=== PATIENT | female | born 1975 | race American Indian/Alaskan Native ===

== ENCOUNTER 2018-04-07 12:47 | Inpatient (IN) | payer MEDICAID, OTHER ==
[2018-04-07] MEDS ORDERED: NACL 0.9% 1000 ML 1,000 ML IV ONE ×2 (13:15→14:12)
[2018-04-07] MEDS ORDERED: ZOFRAN IV ONE ×2 (13:15→18:45)
[2018-04-07] MEDS ORDERED: BENADRYL IV ONE (13:50)
[2018-04-07] MEDS ORDERED: SUBLIMAZE IV ONE (13:50)
[2018-04-07] MEDS ORDERED: REGLAN IV ONE (13:50)
[2018-04-07 13:58] LABS: INR 0.84 (0.87-1.13)
[2018-04-07 13:59] LABS: Hematocrit 39.4 % (30.3-42.9); Hemoglobin 13.4 gm/dl (10.1-14.3); Mean Corpuscular HGB Conc 34 % (30-34); Mean Corpuscular Volume 84 fl (79-97); Platelet Count 315 K/mm3 (140-440); Red Blood Count 4.72 M/mm3 (3.65-5.03); Red Cell Distribution Width 14.2 % (13.2-15.2)
[2018-04-07 14:02] LABS: Alanine Aminotransferase 13 units/L (7-56); Albumin 3.8 g/dL (3.9-5); BUN/Creatinine Ratio 13; Bilirubin,Direct < 0.2 mg/dL (0-0.2); Blood Urea Nitrogen 13 mg/dL (7-17); Calcium 8.7 mg/dL (8.4-10.2); Hemolysis Index 52
--- NOTE | 2018-04-07 14:12 | Emergency Department Report ---
HPI - General Chief Complaint: Abdominal Pain Time Seen by Provider: 04/07/18 13:29 - HPI HPI: Room 25 The patient is a 43-year-old female presenting with chief complaint of abdominal pain nausea and vomiting. The patient states symptoms began 3-4 days ago with left lower quadrant abdominal pain has been constant. The patient states yesterday she developed some nausea and vomiting and then today some diarrhea. Patient has a history of gastroparesis. Patient denies dysuria or hematuria. Patient denies history of fever or vaginal discharge. The patient give her pain a score of 10/10 Location: Abdomen Duration:3-4 days Quality: Pain Severity: 10/10 Modifying factors: [see above] Context: [see above] Mode of transportation: [not driving] ED Past Medical Hx - Past Medical History Hx Diabetes: Yes Hx GERD: Yes (Ulcers) Additional medical history: Gastroparesis - Family History Family history: no significant - Social History Smoking Status: Never Smoker Substance Use Type: None ED Review of Systems ROS: Stated complaint: ABD PAIN Other details as noted in HPI Constitutional: denies: fever Eyes: denies: eye pain ENT: denies: throat pain Respiratory: no symptoms reported Cardiovascular: denies: chest pain Endocrine: no symptoms reported Gastrointestinal: abdominal pain, nausea, vomiting, diarrhea Genitourinary: denies: dysuria Musculoskeletal: denies: back pain Neurological: denies: headache Physical Exam - Physical Exam Vital Signs: Vital Signs 04/07/18 13:12 Temperature 98.1 F Pulse Rate 116 H Respiratory 18 Rate Blood Pressure 196/111 O2 Sat by Pulse 99 Oximetry Physical Exam: GENERAL: The patient is well-developed well-nourished female lying on stretcher. Be in mild discomfort. [] HEENT: Normocephalic. Atraumatic. Extraocular motions are intact. Patient has moist mucous membranes. NECK: Supple. Trachea midline CHEST/LUNGS: Clear to auscultation. There is no respiratory distress noted. HEART/CARDIOVASCULAR: Regular. There is no tachycardia. There is no gallop rub or murmur. ABDOMEN: Abdomen is soft, with diffuse tenderness to palpation. Patient has normal bowel sounds. There is no abdominal distention. SKIN: There is no rash. There is no edema. There is no diaphoresis. NEURO: The patient is awake, alert, and oriented. The patient is cooperative. The patient has normal speech MUSCULOSKELETAL: There is no evidence of acute injury. ED Course Vital Signs 04/07/18 13:12 Temperature 98.1 F Pulse Rate 116 H Respiratory 18 Rate Blood Pressure 196/111 O2 Sat by Pulse 99 Oximetry - Reevaluation(s) Reevaluation #1: 04/07/18 16:01 Patient resting comfortably. Mother updated on labs and CT. Awaiting urine sample Reevaluation #2: 04/07/18 18:50 Patient remains tachycardic and now vomiting despite meds. Will admit to the hospital ED Medical Decision Making - Lab Data Result diagrams: 04/07/18 13:27 04/07/18 13:27 Laboratory Tests 04/07/18 04/07/18 04/07/18 13:27 13:27 13:27 WBC 10.1 RBC 4.72 Hgb 13.4 Hct 39.4 MCV 84 MCH 28 MCHC 34 RDW 14.2 Plt Count 315 Lymph % (Auto) Owner [place] % (Auto) Owner Eos % (Auto) Owner Baso % (Auto) Owner Lymph # Owner [place] # Owner Eos # Owner Baso # Owner Add Manual Diff Complete Total Counted 100 Seg Neutrophils % Owner Seg Neuts % (Manual) 91.0 H Band Neutrophils % 0 Lymphocytes % (Manual) 6.0 L Reactive Lymphs % (Man) 0 Monocytes % (Manual) 3.0 Eosinophils % (Manual) 0 Basophils % (Manual) 0 Metamyelocytes % 0 Myelocytes % 0 Promyelocytes % 0 Blast Cells % 0 Nucleated RBC % Not Reportable Seg Neutrophils # Owner Seg Neutrophils # Man 9.2 H Band Neutrophils # 0.0 Lymphocytes # (Manual) 0.6 L Abs React Lymphs (Man) 0.0 Monocytes # (Manual) 0.3 Eosinophils # (Manual) 0.0 Basophils # (Manual) 0.0 Metamyelocytes # 0.0 Myelocytes # 0.0 Promyelocytes # 0.0 Blast Cells # 0.0 WBC Morphology Not Reportable Hypersegmented Neuts Not Reportable Hyposegmented Neuts Not Reportable Hypogranular Neuts Not Reportable Smudge Cells Not Reportable Toxic Granulation Not Reportable Toxic Vacuolation Not Reportable Dohle Bodies Not Reportable Pelger-Huet Anomaly Not Reportable Abida Rods Not Reportable Platelet Estimate Consistent w auto Clumped Platelets Not Reportable Plt Clumps, EDTA Not Reportable Large Platelets Not Reportable Giant Platelets Not Reportable Platelet Satelliting Not Reportable Plt Morphology Comment Not Reportable RBC Morphology Not Reportable Dimorphic RBCs Not Reportable Polychromasia Not Reportable Hypochromasia Not Reportable Poikilocytosis Not Reportable Anisocytosis 1+ Microcytosis Not Reportable Macrocytosis Not Reportable Spherocytes Not Reportable Pappenheimer Bodies Not Reportable Sickle Cells Not Reportable Target Cells Not Reportable Tear Drop Cells Not Reportable Ovalocytes Not Reportable Helmet Cells Not Reportable Smalls-[place]za Bodies Not Reportable Baker Rings Not Reportable [place] Cells Not Reportable Bite Cells Not Reportable Crenated Cell Not Reportable Elliptocytes Not Reportable Acanthocytes (Spur) Not Reportable Rouleaux Not Reportable Hemoglobin C Crystals Not Reportable Schistocytes Not Reportable Malaria parasites Not Reportable Jay Bodies Not Reportable Hem Pathologist Commnt No PT 11.9 L INR 0.84 L Sodium 135 L Potassium 4.9 Chloride 100.8 Carbon Dioxide 19 L Anion Gap 20 BUN 13 Creatinine 1.0 Estimated GFR > 60 BUN/Creatinine Ratio 13 Glucose 352 H Calcium 8.7 Total Bilirubin 0.40 Direct Bilirubin < 0.2 AST 14 ALT 13 Alkaline Phosphatase 113 Total Protein 7.2 Albumin 3.8 L Albumin/Globulin Ratio 1.1 Amylase 57 Lipase 14 HCG, Qual 04/07/18 13:27 WBC RBC Hgb Hct MCV MCH MCHC RDW Plt Count Lymph % (Auto) [place] % (Auto) Eos % (Auto) Baso % (Auto) Lymph # [place] # Eos # Baso # Add Manual Diff Total Counted Seg Neutrophils % Seg Neuts % (Manual) Band Neutrophils % Lymphocytes % (Manual) Reactive Lymphs % (Man) Monocytes % (Manual) Eosinophils % (Manual) Basophils % (Manual) Metamyelocytes % Myelocytes % Promyelocytes % Blast Cells % Nucleated RBC % Seg Neutrophils # Seg Neutrophils # Man Band Neutrophils # Lymphocytes # (Manual) Abs React Lymphs (Man) Monocytes # (Manual) Eosinophils # (Manual) Basophils # (Manual) Metamyelocytes # Myelocytes # Promyelocytes # Blast Cells # WBC Morphology Hypersegmented Neuts Hyposegmented Neuts Hypogranular Neuts Smudge Cells Toxic Granulation Toxic Vacuolation Dohle Bodies Pelger-Huet Anomaly [place] Rods Platelet Estimate Clumped Platelets Plt Clumps, EDTA Large Platelets Giant Platelets Platelet Satelliting Plt Morphology Comment RBC Morphology Dimorphic RBCs Polychromasia Hypochromasia Poikilocytosis Anisocytosis Microcytosis Macrocytosis Spherocytes Pappenheimer Bodies Sickle Cells Target Cells Tear Drop Cells Ovalocytes Helmet Cells Sm[place]za Bodies Baker Rings [place] Cells Bite Cells Crenated Cell Elliptocytes Acanthocytes (Spur) Rouleaux Hemoglobin C Crystals Schistocytes Malaria parasites Jay Bodies Hem Pathologist Commnt PT INR Sodium Potassium Chloride Carbon Dioxide Anion Gap BUN Creatinine Estimated GFR BUN/Creatinine Ratio Glucose Calcium Total Bilirubin Direct Bilirubin AST ALT Alkaline Phosphatase Total Protein Albumin Albumin/Globulin Ratio Amylase Lipase HCG, Qual Negative Laboratory Tests 04/07/18 04/07/18 04/07/18 13:27 13:27 13:27 WBC 10.1 RBC 4.72 Hgb 13.4 Hct 39.4 MCV 84 MCH 28 MCHC 34 RDW 14.2 Plt Count 315 Lymph % (Auto) Owner [place] % (Auto) Owner Eos % (Auto) Owner Baso % (Auto) Owner Lymph # Owner [place] # Owner Eos # Owner Baso # Owner Add Manual Diff Complete Total Counted 100 Seg Neutrophils % Owner Seg Neuts % (Manual) 91.0 H Band Neutrophils % 0 Lymphocytes % (Manual) 6.0 L Reactive Lymphs % (Man) 0 Monocytes % (Manual) 3.0 Eosinophils % (Manual) 0 Basophils % (Manual) 0 Metamyelocytes % 0 Myelocytes % 0 Promyelocytes % 0 Blast Cells % 0 Nucleated RBC % Not Reportable Seg Neutrophils # Owner Seg Neutrophils # Man 9.2 H Band Neutrophils # 0.0 Lymphocytes # (Manual) 0.6 L Abs React Lymphs (Man) 0.0 Monocytes # (Manual) 0.3 Eosinophils # (Manual) 0.0 Basophils # (Manual) 0.0 Metamyelocytes # 0.0 Myelocytes # 0.0 Promyelocytes # 0.0 Blast Cells # 0.0 WBC Morphology Not Reportable Hypersegmented Neuts Not Reportable Hyposegmented Neuts Not Reportable Hypogranular Neuts Not Reportable Smudge Cells Not Reportable Toxic Granulation Not Reportable Toxic Vacuolation Not Reportable Dohle Bodies Not Reportable Pelger-Huet Anomaly Not Reportable Abida Rods Not Reportable Platelet Estimate Consistent w auto Clumped Platelets Not Reportable Plt Clumps, EDTA Not Reportable Large Platelets Not Reportable Giant Platelets Not Reportable Platelet Satelliting Not Reportable Plt Morphology Comment Not Reportable RBC Morphology Not Reportable Dimorphic RBCs Not Reportable Polychromasia Not Reportable Hypochromasia Not Reportable Poikilocytosis Not Reportable Anisocytosis 1+ Microcytosis Not Reportable Macrocytosis Not Reportable Spherocytes Not Reportable Pappenheimer Bodies Not Reportable Sickle Cells Not Reportable Target Cells Not Reportable Tear Drop Cells Not Reportable Ovalocytes Not Reportable Helmet Cells Not Reportable [place] Bodies Not Reportable Baker Rings Not Reportable [place] Cells Not Reportable Bite Cells Not Reportable Crenated Cell Not Reportable Elliptocytes Not Reportable Acanthocytes (Spur) Not Reportable Rouleaux Not Reportable Hemoglobin C Crystals Not Reportable Schistocytes Not Reportable Malaria parasites Not Reportable Jay Bodies Not Reportable Hem Pathologist Commnt No PT 11.9 L INR 0.84 L Sodium 135 L Potassium 4.9 Chloride 100.8 Carbon Dioxide 19 L Anion Gap 20 BUN 13 Creatinine 1.0 Estimated GFR > 60 BUN/Creatinine Ratio 13 Glucose 352 H Calcium 8.7 Total Bilirubin 0.40 Direct Bilirubin < 0.2 AST 14 ALT 13 Alkaline Phosphatase 113 Total Protein 7.2 Albumin 3.8 L Albumin/Globulin Ratio 1.1 Amylase 57 Lipase 14 HCG, Qual Urine Color Urine Turbidity Urine pH Ur Specific [place] Urine Protein Urine Glucose (UA) Urine Ketones Urine Blood Urine Nitrite Urine Bilirubin Urine Urobilinogen Ur Leukocyte Esterase Urine WBC (Auto) Urine RBC (Auto) 04/07/18 04/07/18 13:27 16:57 WBC RBC Hgb Hct MCV MCH MCHC RDW Plt Count Lymph % (Auto) [place] % (Auto) Eos % (Auto) Baso % (Auto) Lymph # [place] # Eos # Baso # Add Manual Diff Total Counted Seg Neutrophils % Seg Neuts % (Manual) Band Neutrophils % Lymphocytes % (Manual) Reactive Lymphs % (Man) Monocytes % (Manual) Eosinophils % (Manual) Basophils % (Manual) Metamyelocytes % Myelocytes % Promyelocytes % Blast Cells % Nucleated RBC % Seg Neutrophils # Seg Neutrophils # Man Band Neutrophils # Lymphocytes # (Manual) Abs React Lymphs (Man) Monocytes # (Manual) Eosinophils # (Manual) Basophils # (Manual) Metamyelocytes # Myelocytes # Promyelocytes # Blast Cells # WBC Morphology Hypersegmented Neuts Hyposegmented Neuts Hypogranular Neuts Smudge Cells Toxic Granulation Toxic Vacuolation Dohle Bodies Pelger-Huet Anomaly Abida Rods Platelet Estimate Clumped Platelets Plt Clumps, EDTA Large Platelets Giant Platelets Platelet Satelliting Plt Morphology Comment RBC Morphology Dimorphic RBCs Polychromasia Hypochromasia Poikilocytosis Anisocytosis Microcytosis Macrocytosis Spherocytes Pappenheimer Bodies Sickle Cells Target Cells Tear Drop Cells Ovalocytes Helmet Cells Sm[place]za Bodies Baker Rings [place] Cells Bite Cells Crenated Cell Elliptocytes Acanthocytes (Spur) Rouleaux Hemoglobin C Crystals Schistocytes Malaria parasites Jay Bodies Hem Pathologist Commnt PT INR Sodium Potassium Chloride Carbon Dioxide Anion Gap BUN Creatinine Estimated GFR BUN/Creatinine Ratio Glucose Calcium Total Bilirubin Direct Bilirubin AST ALT Alkaline Phosphatase Total Protein Albumin Albumin/Globulin Ratio Amylase Lipase HCG, Qual Negative Urine Color Straw Urine Turbidity Clear Urine pH 5.0 Ur Specific [place] 1.002 L Urine Protein <15 mg/dl Urine Glucose (UA) Neg Urine Ketones Neg Urine Blood Neg Urine Nitrite Neg Urine Bilirubin Neg Urine Urobilinogen < 2.0 Ur Leukocyte Esterase Neg Urine WBC (Auto) < 1.0 Urine RBC (Auto) < 1.0 - Radiology Data Radiology results: report reviewed (CT abdomen and pelvis), image reviewed (CT abdomen and pelvis) [address] [address] Cat Scan Report Signed Patient: BELL LEHMAN MR#: [id number] : 1975 Acct:[id number] Age/Sex: 43 / F ADM Date: 04/07/18 Loc: ED Attending Dr: Ordering Physician: MARIA C BILL MD Date of Service: 04/07/18 Procedure(s): CT abdomen pelvis wo con Accession Number(s): [id number] cc: MARIA C BILL MD CT ABDOMEN PELVIS WITHOUT CONTRAST: HISTORY: Left lower quadrant pain, nausea and vomiting. COMPARISON: none. TECHNIQUE: Helical CT in 1.25mm intervals without IV contrast. Sagittal and coronal reconstructions. FINDINGS: Lung bases: Normal. Liver: Normal. Biliary system: Normal. Pancreas: Normal. Spleen: Normal. Kidneys/ureters/bladder: Normal. Adrenal glands: Normal. Aorta: Normal. Intestines: Normal. Appendix: Normal. Pelvic viscera: Normal. Ascites: None. Adenopathy: None. Musculoskeletal: Intact. Previous internal fixation of the left femoral neck is noted. IMPRESSION: Unremarkable CT scan of the abdomen and pelvis without contrast. Transcribed By: TTR Dictated By: DRISS THAKUR JR, MD Electronically Authenticated By: DRISS THAKUR JR, MD Signed Date/Time: 04/07/18 150 DD/ 1502 TD/TT: 04/07/18 1503 - Differential Diagnosis gastroparesis, diverticulitis, gastroenteritis Critical care attestation.: If time is entered above; I have spent that time in minutes in the direct care of this critically ill patient, excluding procedure time. ED Disposition Clinical Impression: Acute abdominal pain, Gastroparesis, Intractable nausea and vomiting, Tachycardia Disposition: OP ADMIT IP TO THIS HOSP Is pt being admited?: Yes Does the pt Need Aspirin: No Condition: Fair Instructions: Abdominal Pain (ED) Referrals: PRIMARY CARE, [Primary Care Provider] - 3-5 Days Time of Disposition: 18:51 (hospitalist paged (Dr Monroy))
[2018-04-07 14:49] LABS: Anisocytosis 1+; Basophils % (Manual) 0 % (0.0-1.8); Eosinophils % (Manual) 0 % (0.0-4.3); Platelet Estimate Consistent w Auto; Total Cells Counted 100
--- NOTE | 2018-04-07 15:06 | Cat Scan Report ---
CT ABDOMEN PELVIS WITHOUT CONTRAST: HISTORY: Left lower quadrant pain, nausea and vomiting. COMPARISON: none. TECHNIQUE: Helical CT in 1.25mm intervals without IV contrast. Sagittal and coronal reconstructions. FINDINGS: Lung bases: Normal. Liver: Normal. Biliary system: Normal. Pancreas: Normal. Spleen: Normal. Kidneys/ureters/bladder: Normal. Adrenal glands: Normal. Aorta: Normal. Intestines: Normal. Appendix: Normal. Pelvic viscera: Normal. Ascites: None. Adenopathy: None. Musculoskeletal: Intact. Previous internal fixation of the left femoral neck is noted. IMPRESSION: Unremarkable CT scan of the abdomen and pelvis without contrast.
[2018-04-07 17:33] LABS: Bilirubin,Urine NEG (Negative); Blood,Urine NEG (Negative); Color,Urine Straw (Yellow); Protein,Urine <15 mg/dL mg/dL (Negative); Urobilinogen,Urine < 2.0 mg/dL (<2.0); WBC,Urine < 1.0 /HPF (0.0-6.0)
[2018-04-07 17:38] LABS: RBC,Urine < 1.0 /HPF (0.0-6.0)
[2018-04-07] MEDS ORDERED: PHENERGAN PR ONE ×2 (18:46→21:24)
[2018-04-07] MEDS ORDERED: ZOFRAN ONE (18:48)
[2018-04-07] MEDS ORDERED: HumuLIN R IV ONE (18:53)
[2018-04-07] MEDS ORDERED: TYLENOL PO PRN (21:13)
[2018-04-07] MEDS ORDERED: REGLAN IV PRN (21:13)
[2018-04-07] MEDS ORDERED: ZOFRAN IV PRN (21:13)
[2018-04-07] MEDS ORDERED: SODIUM CHLORIDE FLUSH SYRINGE 10 ML IV PRN (21:13)
--- NOTE | 2018-04-07 21:18 | History and Physical Report ---
<MIKAYLA MANUEL - Last Filed: 04/08/18 00:18> History of Present Illness Date of examination: 04/07/18 Date of admission: Pt is a 43 BF with PMHx of HTN, DM type 2, recurrent gastroparesis who presents to the ER with c/o abdominal pain nausea and vomiting for 4 days. Pt was interviewed in room, she was unable to answer question due to medical condition(severe pain and constant vomiting), most of the history was provided by her mother in room. Pt's mother states that she has been having abdominal pain, n/v on and off for at least 1 year, she was diagnosed with gastroparesis, she was admitted in a hospital 2 weeks ago in [place] for similar symptoms, she had an EGD 1 month ago that shows multiple ulcers, she had a f/u appointment in 3 months for a repeat EGD. Pt's mother states that she is visiting in [place], she had been having profuse vomiting for a few days, she brought her to the ER because her vomiting is "dark " (coffee ground). Pt reports diffuse tenderness in the abdomen to light touch (refuse exam due to pain), constant dry hives with scan amount of dark emesis, a CT scan of the abdomen was negative for acute findings, GI is consulted and pt is admitted for acute GIB. Past History Past Medical History: diabetes, hypertension, other (obesity, gastroparesis) Past Surgical History: hysterectomy (partial), Other (left hip sx as a child) Social history: no significant social history, lives with family (mother) Family history: no significant family history Medications and Allergies Allergies Allergy/AdvReac Type Severity Reaction Status Date / Time iodine Allergy Unknown Verified 04/07/18 13:15 Home Medications Medication Instructions Recorded Confirmed Last Taken Type Enalapril Maleate [Vasotec] 10 mg PO BID 04/08/18 04/08/18 Unknown History NovoLIN 70/30 16 units SQ QPM 04/08/18 04/08/18 Unknown History Novolin 70-30 100 Unit/ml Vial 35 units SQ QAM 04/08/18 04/08/18 Unknown History Review of Systems Gastrointestinal: abdominal pain, nausea, vomiting Rectal: pain Musculoskeletal: neck stiffness Integumentary: deferred Psychiatric: other (unable to evaluated) Exam - Constitutional Vitals: Temp Pulse Resp BP Pulse Ox 98.1 F 120 H 22 181/97 99 04/07/18 13:12 04/07/18 18:50 04/07/18 19:00 04/07/18 18:50 04/07/18 18:50 General appearance: Present: severe distress - EENT Eyes: Present: EOM intact ENT: hearing intact - Neck Neck: Present: normal ROM - Respiratory Respiratory effort: normal Respiratory: bilateral: CTA - Cardiovascular Rhythm: regular - Extremities Extremities: no ischemia Peripheral Pulses: within normal limits - Abdominal General gastrointestinal: Present: deferred Localized gastrointestinal: tender: diffuse, guarding: diffuse Female genitourinary: Present: deferred - Rectal Rectal Exam: deferred - Integumentary Integumentary: Present: warm, dry - Musculoskeletal Musculoskeletal: strength equal bilaterally - Psychiatric Psychiatric: appropriate mood/affect - Neurologic Neurologic: moves all extremities Results - Labs CBC & Chem 7: 04/07/18 13:27 04/07/18 13:27 Labs: Laboratory Last Values WBC 10.1 K/mm3 (4.5-11.0) 04/07/18 13:27 RBC 4.72 M/mm3 (3.65-5.03) 04/07/18 13:27 Hgb 13.4 gm/dl (10.1-14.3) 04/07/18 13:27 Hct 39.4 % (30.3-42.9) 04/07/18 13:27 MCV 84 fl (79-97) 04/07/18 13:27 MCH 28 pg (28-32) 04/07/18 13:27 MCHC 34 % (30-34) 04/07/18 13:27 RDW 14.2 % (13.2-15.2) 04/07/18 13:27 Plt Count 315 K/mm3 (140-440) 04/07/18 13:27 Lymph % (Auto) Hebrew Teacher 04/07/18 13:27 Geary % (Auto) Hebrew Teacher 04/07/18 13:27 Eos % (Auto) Hebrew Teacher 04/07/18 13:27 Baso % (Auto) Hebrew Teacher 04/07/18 13:27 Lymph # Hebrew Teacher 04/07/18 13:27 Geary # Hebrew Teacher 04/07/18 13:27 Eos # Hebrew Teacher 04/07/18 13:27 Baso # Hebrew Teacher 04/07/18 13:27 Add Manual Diff Complete 04/07/18 13:27 Total Counted 100 04/07/18 13:27 Seg Neutrophils % Hebrew Teacher 04/07/18 13:27 Seg Neuts % (Manual) 91.0 % (40.0-70.0) H 04/07/18 13:27 Band Neutrophils % 0 % 04/07/18 13:27 Lymphocytes % (Manual) 6.0 % (13.4-35.0) L 04/07/18 13:27 Reactive Lymphs % (Man) 0 % 04/07/18 13:27 Monocytes % (Manual) 3.0 % (0.0-7.3) 04/07/18 13:27 Eosinophils % (Manual) 0 % (0.0-4.3) 04/07/18 13:27 Basophils % (Manual) 0 % (0.0-1.8) 04/07/18 13:27 Metamyelocytes % 0 % 04/07/18 13:27 Myelocytes % 0 % 04/07/18 13:27 Promyelocytes % 0 % 04/07/18 13:27 Blast Cells % 0 % 04/07/18 13:27 Nucleated RBC % Not Reportable 04/07/18 13:27 Seg Neutrophils # Hebrew Teacher 04/07/18 13:27 Seg Neutrophils # Man 9.2 K/mm3 (1.8-7.7) H 04/07/18 13:27 Band Neutrophils # 0.0 K/mm3 04/07/18 13:27 Lymphocytes # (Manual) 0.6 K/mm3 (1.2-5.4) L 04/07/18 13:27 Abs React Lymphs (Man) 0.0 K/mm3 04/07/18 13:27 Monocytes # (Manual) 0.3 K/mm3 (0.0-0.8) 04/07/18 13:27 Eosinophils # (Manual) 0.0 K/mm3 (0.0-0.4) 04/07/18 13:27 Basophils # (Manual) 0.0 K/mm3 (0.0-0.1) 04/07/18 13:27 Metamyelocytes # 0.0 K/mm3 04/07/18 13:27 Myelocytes # 0.0 K/mm3 04/07/18 13:27 Promyelocytes # 0.0 K/mm3 04/07/18 13:27 Blast Cells # 0.0 K/mm3 04/07/18 13:27 WBC Morphology Not Reportable 04/07/18 13:27 Hypersegmented Neuts Not Reportable 04/07/18 13:27 Hyposegmented Neuts Not Reportable 04/07/18 13:27 Hypogranular Neuts Not Reportable 04/07/18 13:27 Smudge Cells Not Reportable 04/07/18 13:27 Toxic Granulation Not Reportable 04/07/18 13:27 Toxic Vacuolation Not Reportable 04/07/18 13:27 Dohle Bodies Not Reportable 04/07/18 13:27 Pelger-Huet Anomaly Not Reportable 04/07/18 13:27 Abida Rods Not Reportable 04/07/18 13:27 Platelet Estimate Consistent w auto 04/07/18 13:27 Clumped Platelets Not Reportable 04/07/18 13:27 Plt Clumps, EDTA Not Reportable 04/07/18 13:27 Large Platelets Not Reportable 04/07/18 13:27 Giant Platelets Not Reportable 04/07/18 13:27 Platelet Satelliting Not Reportable 04/07/18 13:27 Plt Morphology Comment Not Reportable 04/07/18 13:27 RBC Morphology Not Reportable 04/07/18 13:27 Dimorphic RBCs Not Reportable 04/07/18 13:27 Polychromasia Not Reportable 04/07/18 13:27 Hypochromasia Not Reportable 04/07/18 13:27 Poikilocytosis Not Reportable 04/07/18 13:27 Anisocytosis 1+ 04/07/18 13:27 Microcytosis Not Reportable 04/07/18 13:27 Macrocytosis Not Reportable 04/07/18 13:27 Spherocytes Not Reportable 04/07/18 13:27 Pappenheimer Bodies Not Reportable 04/07/18 13:27 Sickle Cells Not Reportable 04/07/18 13:27 Target Cells Not Reportable 04/07/18 13:27 Tear Drop Cells Not Reportable 04/07/18 13:27 Ovalocytes Not Reportable 04/07/18 13:27 Helmet Cells Not Reportable 04/07/18 13:27 Smalls-Mahtomedi Bodies Not Reportable 04/07/18 13:27 [place] Rings Not Reportable 04/07/18 13:27 Felipe Cells Not Reportable 04/07/18 13:27 Bite Cells Not Reportable 04/07/18 13:27 Crenated Cell Not Reportable 04/07/18 13:27 Elliptocytes Not Reportable 04/07/18 13:27 Acanthocytes (Spur) Not Reportable 04/07/18 13:27 Rouleaux Not Reportable 04/07/18 13:27 Hemoglobin C Crystals Not Reportable 04/07/18 13:27 Schistocytes Not Reportable 04/07/18 13:27 Malaria parasites Not Reportable 04/07/18 13:27 Jay Bodies Not Reportable 04/07/18 13:27 Hem Pathologist Commnt No 04/07/18 13:27 PT 11.9 Sec. (12.2-14.9) L 04/07/18 13:27 INR 0.84 (0.87-1.13) L 04/07/18 13:27 Sodium 135 mmol/L (137-145) L 04/07/18 13:27 Potassium 4.9 mmol/L (3.6-5.0) 04/07/18 13:27 Chloride 100.8 mmol/L (98-107) 04/07/18 13:27 Carbon Dioxide 19 mmol/L (22-30) L 04/07/18 13:27 Anion Gap 20 mmol/L 04/07/18 13:27 BUN 13 mg/dL (7-17) 04/07/18 13:27 Creatinine 1.0 mg/dL (0.7-1.2) 04/07/18 13:27 Estimated GFR > 60 ml/min 04/07/18 13:27 BUN/Creatinine Ratio 13 % 04/07/18 13:27 Glucose 352 mg/dL (65-100) H 04/07/18 13:27 POC Glucose 327 (70-105) H 04/07/18 18:54 Calcium 8.7 mg/dL (8.4-10.2) 04/07/18 13:27 Total Bilirubin 0.40 mg/dL (0.1-1.2) 04/07/18 13:27 Direct Bilirubin < 0.2 mg/dL (0-0.2) 04/07/18 13:27 AST 14 units/L (5-40) 04/07/18 13:27 ALT 13 units/L (7-56) 04/07/18 13:27 Alkaline Phosphatase 113 units/L (35-129) 04/07/18 13:27 Total Protein 7.2 g/dL (6.3-8.2) 04/07/18 13:27 Albumin 3.8 g/dL (3.9-5) L 04/07/18 13:27 Albumin/Globulin Ratio 1.1 % 04/07/18 13:27 Amylase 57 units/L (27-131) 04/07/18 13:27 Lipase 14 units/L (13-60) 04/07/18 13:27 HCG, Qual Negative (Negative) 04/07/18 13:27 Urine Color Straw (Yellow) 04/07/18 16:57 Urine Turbidity Clear (Clear) 04/07/18 16:57 Urine pH 5.0 (5.0-7.0) 04/07/18 16:57 Ur Specific [place] 1.002 (1.003-1.030) L 04/07/18 16:57 Urine Protein <15 mg/dl mg/dL (Negative) 04/07/18 16:57 Urine Glucose (UA) Neg mg/dL (Negative) 04/07/18 16:57 Urine Ketones Neg mg/dL (Negative) 04/07/18 16:57 Urine Blood Neg (Negative) 04/07/18 16:57 Urine Nitrite Neg (Negative) 04/07/18 16:57 Urine Bilirubin Neg (Negative) 04/07/18 16:57 Urine Urobilinogen < 2.0 mg/dL (<2.0) 04/07/18 16:57 Ur Leukocyte Esterase Neg (Negative) 04/07/18 16:57 Urine WBC (Auto) < 1.0 /HPF (0.0-6.0) 04/07/18 16:57 Urine RBC (Auto) < 1.0 /HPF (0.0-6.0) 04/07/18 16:57 Assessment and Plan Assessment and plan: 1. Diffuse abdominal pain 2. Intractable N/V 3. Dehydration due to n/v 4. Uncontrol DM type 2 5. Recurrent gastroparesis (likely due to uncontrolled DM 6. HTN 7. Obesity Plan [facility] /n/v Consult GI for upper GIB eval Keep NPO until seen by GI IVF for hydration Morphine PRN for abdominal pain Protonix 40 IV BID Initiate glycemic management with insulin per Sliding scale NS for hydration, renal perfusion Chek Electrolytes K/Mg Futher plan per hospital course Plan of care was d/w pt, voiced understanding Pt's condition and plan of care discussed with Dr Nguyễn Advance Directives: Yes VTE prophylaxis?: Mechanical Plan of care discussed with patient/family: Yes <YE NGUYỄN - Last Filed: 04/08/18 02:52> History of Present Illness Date of admission: 04/07/18 21:13 Medications and Allergies Active Meds: Active Medications Acetaminophen (Tylenol) 650 mg PO Q4H PRN PRN Reason: Pain MILD(1-3)/Fever >100.5/DAVID Dextrose (D50w (25gm) Syringe) 50 ml IV PRN PRN PRN Reason: Hypoglycemia Hydralazine HCl (Apresoline) 5 mg IV Q6HR [facility] Sodium Chloride (Nacl 0.45% 1000 Ml) 1,000 mls @ 75 mls/hr IV DIRECT [facility] Last Admin: 04/07/18 22:23 Dose: 75 mls/hr Documented by: Insulin Human Lispro (Humalog) 0 unit SUB-Q Q6HR [facility]; Protocol Last Admin: 04/08/18 01:08 Dose: 8 unit Documented by: Metoclopramide HCl (Reglan) 10 mg IV Q6H PRN PRN Reason: Nausea And Vomiting Morphine Sulfate (Morphine) 2 mg IV Q4H PRN PRN Reason: Pain, Moderate (4-6) Last Admin: 04/08/18 01:02 Dose: 2 mg Documented by: Ondansetron HCl (Zofran) 4 mg IV Q4H PRN PRN Reason: Nausea And Vomiting Last Admin: 04/08/18 01:02 Dose: 4 mg Documented by: Pantoprazole Sodium (Protonix) 40 mg IV BID [facility] Last Admin: 04/07/18 21:56 Dose: 40 mg Documented by: Sodium Chloride (Sodium Chloride Flush Syringe 10 Ml) 10 ml IV BID [facility] Last Admin: 04/07/18 22:00 Dose: 10 ml Documented by: Sodium Chloride (Sodium Chloride Flush Syringe 10 Ml) 10 ml IV PRN PRN PRN Reason: LINE FLUSH Exam - Constitutional Vitals: Temp Pulse Resp BP Pulse Ox 98.9 F 121 H 18 164/77 0 L 04/08/18 00:55 04/08/18 00:55 04/08/18 01:32 04/08/18 00:55 04/08/18 00:55 Results - Labs CBC & Chem 7: 04/08/18 00:06 04/07/18 13:27 Labs: Laboratory Last Values WBC 10.1 K/mm3 (4.5-11.0) 04/07/18 13:27 RBC 4.72 M/mm3 (3.65-5.03) 04/07/18 13:27 Hgb 12.1 gm/dl (10.1-14.3) 04/08/18 00:06 Hct 34.5 % (30.3-42.9) 04/08/18 00:06 MCV 84 fl (79-97) 04/07/18 13:27 MCH 28 pg (28-32) 04/07/18 13:27 MCHC 34 % (30-34) 04/07/18 13:27 RDW 14.2 % (13.2-15.2) 04/07/18 13:27 Plt Count 315 K/mm3 (140-440) 04/07/18 13:27 Lymph % (Auto) [employer] Teacher 04/07/18 13:27 Geary % (Auto) Hebrew Teacher 04/07/18 13:27 Eos % (Auto) Hebrew Teacher 04/07/18 13:27 Baso % (Auto) Hebrew Teacher 04/07/18 13:27 Lymph # Hebrew Teacher 04/07/18 13:27 Geary # Hebrew Teacher 04/07/18 13:27 Eos # Hebrew Teacher 04/07/18 13:27 Baso # Hebrew Teacher 04/07/18 13:27 Add Manual Diff Complete 04/07/18 13:27 Total Counted 100 04/07/18 13:27 Seg Neutrophils % Hebrew Teacher 04/07/18 13:27 Seg Neuts % (Manual) 91.0 % (40.0-70.0) H 04/07/18 13:27 Band Neutrophils % 0 % 04/07/18 13:27 Lymphocytes % (Manual) 6.0 % (13.4-35.0) L 04/07/18 13:27 Reactive Lymphs % (Man) 0 % 04/07/18 13:27 Monocytes % (Manual) 3.0 % (0.0-7.3) 04/07/18 13:27 Eosinophils % (Manual) 0 % (0.0-4.3) 04/07/18 13:27 Basophils % (Manual) 0 % (0.0-1.8) 04/07/18 13:27 Metamyelocytes % 0 % 04/07/18 13:27 Myelocytes % 0 % 04/07/18 13:27 Promyelocytes % 0 % 04/07/18 13:27 Blast Cells % 0 % 04/07/18 13:27 Nucleated RBC % Not Reportable 04/07/18 13:27 Seg Neutrophils # Hebrew Teacher 04/07/18 13:27 Seg Neutrophils # Man 9.2 K/mm3 (1.8-7.7) H 04/07/18 13:27 Band Neutrophils # 0.0 K/mm3 04/07/18 13:27 Lymphocytes # (Manual) 0.6 K/mm3 (1.2-5.4) L 04/07/18 13:27 Abs React Lymphs (Man) 0.0 K/mm3 04/07/18 13:27 Monocytes # (Manual) 0.3 K/mm3 (0.0-0.8) 04/07/18 13:27 Eosinophils # (Manual) 0.0 K/mm3 (0.0-0.4) 04/07/18 13:27 Basophils # (Manual) 0.0 K/mm3 (0.0-0.1) 04/07/18 13:27 Metamyelocytes # 0.0 K/mm3 04/07/18 13:27 Myelocytes # 0.0 K/mm3 04/07/18 13:27 Promyelocytes # 0.0 K/mm3 04/07/18 13:27 Blast Cells # 0.0 K/mm3 04/07/18 13:27 WBC Morphology Not Reportable 04/07/18 13:27 Hypersegmented Neuts Not Reportable 04/07/18 13:27 Hyposegmented Neuts Not Reportable 04/07/18 13:27 Hypogranular Neuts Not Reportable 04/07/18 13:27 Smudge Cells Not Reportable 04/07/18 13:27 Toxic Granulation Not Reportable 04/07/18 13:27 Toxic Vacuolation Not Reportable 04/07/18 13:27 Dohle Bodies Not Reportable 04/07/18 13:27 Pelger-Huet Anomaly Not Reportable 04/07/18 13:27 Abida Rods Not Reportable 04/07/18 13:27 Platelet Estimate Consistent w auto 04/07/18 13:27 Clumped Platelets Not Reportable 04/07/18 13:27 Plt Clumps, EDTA Not Reportable 04/07/18 13:27 Large Platelets Not Reportable 04/07/18 13:27 Giant Platelets Not Reportable 04/07/18 13:27 Platelet Satelliting Not Reportable 04/07/18 13:27 Plt Morphology Comment Not Reportable 04/07/18 13:27 RBC Morphology Not Reportable 04/07/18 13:27 Dimorphic RBCs Not Reportable 04/07/18 13:27 Polychromasia Not Reportable 04/07/18 13:27 Hypochromasia Not Reportable 04/07/18 13:27 Poikilocytosis Not Reportable 04/07/18 13:27 Anisocytosis 1+ 04/07/18 13:27 Microcytosis Not Reportable 04/07/18 13:27 Macrocytosis Not Reportable 04/07/18 13:27 Spherocytes Not Reportable 04/07/18 13:27 Pappenheimer Bodies Not Reportable 04/07/18 13:27 Sickle Cells Not Reportable 04/07/18 13:27 Target Cells Not Reportable 04/07/18 13:27 Tear Drop Cells Not Reportable 04/07/18 13:27 Ovalocytes Not Reportable 04/07/18 13:27 Helmet Cells Not Reportable 04/07/18 13:27 Smalls-Mahtomedi Bodies Not Reportable 04/07/18 13:27 [place] Rings Not Reportable 04/07/18 13:27 Felipe Cells Not Reportable 04/07/18 13:27 Bite Cells Not Reportable 04/07/18 13:27 Crenated Cell Not Reportable 04/07/18 13:27 Elliptocytes Not Reportable 04/07/18 13:27 Acanthocytes (Spur) Not Reportable 04/07/18 13:27 Rouleaux Not Reportable 04/07/18 13:27 Hemoglobin C Crystals Not Reportable 04/07/18 13:27 Schistocytes Not Reportable 04/07/18 13:27 Malaria parasites Not Reportable 04/07/18 13:27 Jay Bodies Not Reportable 04/07/18 13:27 Hem Pathologist Commnt No 04/07/18 13:27 PT 11.9 Sec. (12.2-14.9) L 04/07/18 13:27 INR 0.84 (0.87-1.13) L 04/07/18 13:27 Sodium 135 mmol/L (137-145) L 04/07/18 13:27 Potassium 4.9 mmol/L (3.6-5.0) 04/07/18 13:27 Chloride 100.8 mmol/L (98-107) 04/07/18 13:27 Carbon Dioxide 19 mmol/L (22-30) L 04/07/18 13:27 Anion Gap 20 mmol/L 04/07/18 13:27 BUN 13 mg/dL (7-17) 04/07/18 13:27 Creatinine 1.0 mg/dL (0.7-1.2) 04/07/18 13:27 Estimated GFR > 60 ml/min 04/07/18 13:27 BUN/Creatinine Ratio 13 % 04/07/18 13:27 Glucose 352 mg/dL (65-100) H 04/07/18 13:27 POC Glucose 345 (70-105) H 04/08/18 01:09 Calcium 8.7 mg/dL (8.4-10.2) 04/07/18 13:27 Total Bilirubin 0.40 mg/dL (0.1-1.2) 04/07/18 13:27 Direct Bilirubin < 0.2 mg/dL (0-0.2) 04/07/18 13:27 AST 14 units/L (5-40) 04/07/18 13:27 ALT 13 units/L (7-56) 04/07/18 13:27 Alkaline Phosphatase 113 units/L (35-129) 04/07/18 13:27 Total Protein 7.2 g/dL (6.3-8.2) 04/07/18 13:27 Albumin 3.8 g/dL (3.9-5) L 04/07/18 13:27 Albumin/Globulin Ratio 1.1 % 04/07/18 13:27 Amylase 57 units/L (27-131) 04/07/18 13:27 Lipase 14 units/L (13-60) 04/07/18 13:27 HCG, Qual Negative (Negative) 04/07/18 13:27 Urine Color Straw (Yellow) 04/07/18 16:57 Urine Turbidity Clear (Clear) 04/07/18 16:57 Urine pH 5.0 (5.0-7.0) 04/07/18 16:57 Ur Specific [place] 1.002 (1.003-1.030) L 04/07/18 16:57 Urine Protein <15 mg/dl mg/dL (Negative) 04/07/18 16:57 Urine Glucose (UA) Neg mg/dL (Negative) 04/07/18 16:57 Urine Ketones Neg mg/dL (Negative) 04/07/18 16:57 Urine Blood Neg (Negative) 04/07/18 16:57 Urine Nitrite Neg (Negative) 04/07/18 16:57 Urine Bilirubin Neg (Negative) 04/07/18 16:57 Urine Urobilinogen < 2.0 mg/dL (<2.0) 04/07/18 16:57 Ur Leukocyte Esterase Neg (Negative) 04/07/18 16:57 Urine WBC (Auto) < 1.0 /HPF (0.0-6.0) 04/07/18 16:57 Urine RBC (Auto) < 1.0 /HPF (0.0-6.0) 04/07/18 16:57 Assessment and Plan Assessment and plan: 43-year-old woman with a history of hypertension, diabetes complicated by gastroparesis [facility] emergency room with complaints of nausea and vomiting 4 days. In the emergency room she had some coffee-ground emesis. Also complaining of abdominal pain, all over. Physical exam significant for abdominal tenderness. Patient with acute on chronic gastroparesis flare, hematemesis secondary tosmall Luz Elena-Cronin tear. Agree with IV fluids, Protonix, IV morphine and GI consult. In condition check serial hemoglobin. Start IV hydralazine for blood pressure control, first dose now
[2018-04-07] MEDS: MORPHINE IV PRN (21:56)
[2018-04-07] MEDS: PROTONIX IV SCH (21:56)
[2018-04-07] MEDS ORDERED: NACL 0.9% 1000 ML 1,000 ML IV SCH (22:00)
[2018-04-07] MEDS: SODIUM CHLORIDE FLUSH SYRINGE 10 ML IV SCH (22:00)
[2018-04-07] MEDS: NACL 0.45% 1000 ML 1,000 ML IV SCH (22:23)
[2018-04-07] MEDS ORDERED: D50W (25GM) Syringe IV PRN ×2 (23:36→23:40)
[2018-04-07] MEDS ORDERED: APRESOLINE IV ONE (23:38)
[2018-04-08 00:26] LABS: Hematocrit 34.5 % (30.3-42.9); Hemoglobin 12.1 gm/dl (10.1-14.3)
[2018-04-08] MEDS: ZOFRAN IV PRN ×4 (01:02→23:53)
[2018-04-08] MEDS: MORPHINE IV PRN ×4 (01:02→21:20)
[2018-04-08] MEDS: HumaLOG SUB-Q SCH ×5 (01:08→23:50)
[2018-04-08] MEDS: APRESOLINE IV SCH ×4 (05:01→23:50)
[2018-04-08 07:46] LABS: Hematocrit 35.3 % (30.3-42.9)
--- NOTE | 2018-04-08 09:30 | Gastroenterology Consultation ---
Addendum entered and electronically signed by ODELL SINHA MD 04/08/18 15:02: I have personally interviewed and examined the patient. I agree with the above A/P. The patient has very poor control of DM (last a1C was 16% in [place]) and explained to her that gastroparesis will be permanent if control not improved. Recommend NPO except ice chips, and advance to liquid diet tomorrow; then as tolerated. Would use Reglan only for severe/intractable cases. Recommend avoid all narcotics. Original Note: History of Present Illness - Reason for Consult Consult date: 04/08/18 GIB Requesting physician: MIKAYLA MANUEL - History of Present Illness Patient is a 43 y/o female with PMH of DM, HTN, obesity, and gastroparesis who presented to ED with c/o abdominal pain, N/V, and "dark" emesis to which GI has been consulted for a possible GIB. Blood glucose > [address] unremarkable. H/H WNL. This morning patient was resting in bed w/o acute distress and mother at bedside but ill appearing. She reports intermittent generalized abdominal cramping with chronic nausea and episodic vomiting for the last 6-7 months requiring multiple hospitalizations with prior workup with an EGD and gastric emptying study while in [place] this past August (08/2017) that revealed a non-bleeding ulcer and gastroparesis per pt report. Symptoms became progressively worse over the past few days with N/V now intractable x 24 hours. Emesis has been "dark brown". No hematemesis, melena, or hematochezia. Admits to continued abd cramping/soreness and new onset of left leg weakness this am. Denies fever, CP, SOB, wt loss, dysphagia, odynophagia, or constipation. Had loose stools yesterday which have now improved. No routine NSAID use but took Ibuprofen recently for abd pain. Upon exam, patient had multiple episodes of dry heaves. Abdomen in soft, non-distended, with generalized TTP/soreness. Past History Past Medical History: diabetes, hypertension, other (obesity, gastroparesis, PUD) Past Surgical History: hysterectomy (partial), Other (left hip sx as a child, EGD and GES 08/2017 in [place]) Social history: no significant social history, lives with family (mother). denies: smoking, alcohol abuse Family history: no significant family history Medications and Allergies Allergies Allergy/AdvReac Type Severity Reaction Status Date / Time iodine Allergy Unknown Verified 04/07/18 13:15 Home Medications Medication Instructions Recorded Confirmed Last Taken Type Enalapril Maleate [Vasotec] 10 mg PO BID 04/08/18 04/08/18 Unknown History NovoLIN 70/30 16 units SQ QPM 04/08/18 04/08/18 Unknown History Novolin 70-30 100 Unit/ml Vial 35 units SQ QAM 04/08/18 04/08/18 Unknown History Active Meds: Active Medications Acetaminophen (Tylenol) 650 mg PO Q4H PRN PRN Reason: Pain MILD(1-3)/Fever >100.5/DAVID Dextrose (D50w (25gm) Syringe) 50 ml IV PRN PRN PRN Reason: Hypoglycemia Hydralazine HCl (Apresoline) 5 mg IV Q6HR [facility] Last Admin: 04/08/18 05:01 Dose: 5 mg Documented by: Sodium Chloride (Nacl 0.45% 1000 Ml) 1,000 mls @ 75 mls/hr IV DIRECT [facility] Last Admin: 04/07/18 22:23 Dose: 75 mls/hr Documented by: Insulin Human Lispro (Humalog) 0 unit SUB-Q Q6HR [facility]; Protocol Last Admin: 04/08/18 05:01 Dose: 4 unit Documented by: Metoclopramide HCl (Reglan) 10 mg IV Q6H PRN PRN Reason: Nausea And Vomiting Last Admin: 04/08/18 04:22 Dose: 10 mg Documented by: Morphine Sulfate (Morphine) 2 mg IV Q4H PRN PRN Reason: Pain, Moderate (4-6) Last Admin: 04/08/18 04:46 Dose: 2 mg Documented by: Ondansetron HCl (Zofran) 4 mg IV Q4H PRN PRN Reason: Nausea And Vomiting Last Admin: 04/08/18 07:57 Dose: 4 mg Documented by: Pantoprazole Sodium (Protonix) 40 mg IV BID [facility] Last Admin: 04/07/18 21:56 Dose: 40 mg Documented by: Sodium Chloride (Sodium Chloride Flush Syringe 10 Ml) 10 ml IV BID [facility] Last Admin: 04/07/18 22:00 Dose: 10 ml Documented by: Sodium Chloride (Sodium Chloride Flush Syringe 10 Ml) 10 ml IV PRN PRN PRN Reason: LINE FLUSH medications reviewed/updated as required Review of Systems - Review of Systems All systems: negative Gastrointestinal: abdominal pain, nausea, vomiting Exam - Constitutional Vital Signs: Temp Pulse Resp BP Pulse Ox 98.0 F 125 H 18 163/97 95 04/08/18 08:48 04/08/18 08:48 04/08/18 08:48 04/08/18 08:48 04/08/18 08:48 General appearance: no acute distress, obese, other (ill appearing) - EENT Eyes: PERRL, EOM intact ENT: hearing intact - Respiratory Respiratory: bilateral: CTA - Cardiovascular Rhythm: other (tachycardia) - Gastrointestinal General gastrointestinal: Present: soft, tender (generalized TTP), non- distended, normal bowel sounds - Musculoskeletal Musculoskeletal: other (left leg weakness) - Neurologic Neurological: alert and oriented x3 - Labs CBC & Chem 7: 04/08/18 07:25 04/07/18 13:27 Lab Results: Laboratory Results - last 24 hr 04/07/18 04/07/18 04/07/18 13:27 13:27 13:27 WBC 10.1 RBC 4.72 Hgb 13.4 Hct 39.4 MCV 84 MCH 28 MCHC 34 RDW 14.2 Plt Count 315 Lymph % (Auto) Film Critic [place] % (Auto) Film Critic Eos % (Auto) Film Critic Baso % (Auto) Film Critic Lymph # Film Critic [place] # Film Critic Eos # Film Critic Baso # Film Critic Add Manual Diff Complete Total Counted 100 Seg Neutrophils % Film Critic Seg Neuts % (Manual) 91.0 H Band Neutrophils % 0 Lymphocytes % (Manual) 6.0 L Reactive Lymphs % (Man) 0 Monocytes % (Manual) 3.0 Eosinophils % (Manual) 0 Basophils % (Manual) 0 Metamyelocytes % 0 Myelocytes % 0 Promyelocytes % 0 Blast Cells % 0 Nucleated RBC % Not Reportable Seg Neutrophils # Film Critic Seg Neutrophils # Man 9.2 H Band Neutrophils # 0.0 Lymphocytes # (Manual) 0.6 L Abs React Lymphs (Man) 0.0 Monocytes # (Manual) 0.3 Eosinophils # (Manual) 0.0 Basophils # (Manual) 0.0 Metamyelocytes # 0.0 Myelocytes # 0.0 Promyelocytes # 0.0 Blast Cells # 0.0 WBC Morphology Not Reportable Hypersegmented Neuts Not Reportable Hyposegmented Neuts Not Reportable Hypogranular Neuts Not Reportable Smudge Cells Not Reportable Toxic Granulation Not Reportable Toxic Vacuolation Not Reportable Dohle Bodies Not Reportable Pelger-Huet Anomaly Not Reportable Abida Rods Not Reportable Platelet Estimate Consistent w auto Clumped Platelets Not Reportable Plt Clumps, EDTA Not Reportable Large Platelets Not Reportable Giant Platelets Not Reportable Platelet Satelliting Not Reportable Plt Morphology Comment Not Reportable RBC Morphology Not Reportable Dimorphic RBCs Not Reportable Polychromasia Not Reportable Hypochromasia Not Reportable Poikilocytosis Not Reportable Anisocytosis 1+ Microcytosis Not Reportable Macrocytosis Not Reportable Spherocytes Not Reportable Pappenheimer Bodies Not Reportable Sickle Cells Not Reportable Target Cells Not Reportable Tear Drop Cells Not Reportable Ovalocytes Not Reportable Helmet Cells Not Reportable Smalls-Claude Bodies Not Reportable [place] Rings Not Reportable [place] Cells Not Reportable Bite Cells Not Reportable Crenated Cell Not Reportable Elliptocytes Not Reportable Acanthocytes (Spur) Not Reportable Rouleaux Not Reportable Hemoglobin C Crystals Not Reportable Schistocytes Not Reportable Malaria parasites Not Reportable Jay Bodies Not Reportable Hem Pathologist Commnt No PT 11.9 L INR 0.84 L Sodium 135 L Potassium 4.9 Chloride 100.8 Carbon Dioxide 19 L Anion Gap 20 BUN 13 Creatinine 1.0 Estimated GFR > 60 BUN/Creatinine Ratio 13 Glucose 352 H POC Glucose Calcium 8.7 Total Bilirubin 0.40 Direct Bilirubin < 0.2 AST 14 ALT 13 Alkaline Phosphatase 113 Total Protein 7.2 Albumin 3.8 L Albumin/Globulin Ratio 1.1 Amylase 57 Lipase 14 HCG, Qual Urine Color Urine Turbidity Urine pH Ur Specific [place] Urine Protein Urine Glucose (UA) Urine Ketones Urine Blood Urine Nitrite Urine Bilirubin Urine Urobilinogen Ur Leukocyte Esterase Urine WBC (Auto) Urine RBC (Auto) 04/07/18 04/07/18 04/07/18 13:27 16:57 18:54 WBC RBC Hgb Hct MCV MCH MCHC RDW Plt Count Lymph % (Auto) [place] % (Auto) Eos % (Auto) Baso % (Auto) Lymph # [place] # Eos # Baso # Add Manual Diff Total Counted Seg Neutrophils % Seg Neuts % (Manual) Band Neutrophils % Lymphocytes % (Manual) Reactive Lymphs % (Man) Monocytes % (Manual) Eosinophils % (Manual) Basophils % (Manual) Metamyelocytes % Myelocytes % Promyelocytes % Blast Cells % Nucleated RBC % Seg Neutrophils # Seg Neutrophils # Man Band Neutrophils # Lymphocytes # (Manual) Abs React Lymphs (Man) Monocytes # (Manual) Eosinophils # (Manual) Basophils # (Manual) Metamyelocytes # Myelocytes # Promyelocytes # Blast Cells # WBC Morphology Hypersegmented Neuts Hyposegmented Neuts Hypogranular Neuts Smudge Cells Toxic Granulation Toxic Vacuolation Dohle Bodies Pelger-Huet Anomaly [place] Rods Platelet Estimate Clumped Platelets Plt Clumps, EDTA Large Platelets Giant Platelets Platelet Satelliting Plt Morphology Comment RBC Morphology Dimorphic RBCs Polychromasia Hypochromasia Poikilocytosis Anisocytosis Microcytosis Macrocytosis Spherocytes Pappenheimer Bodies Sickle Cells Target Cells Tear Drop Cells Ovalocytes Helmet Cells Smalls-Claude Bodies [place] Rings [place] Cells Bite Cells Crenated Cell Elliptocytes Acanthocytes (Spur) Rouleaux Hemoglobin C Crystals Schistocytes Malaria parasites Jay Bodies Hem Pathologist Commnt PT INR Sodium Potassium Chloride Carbon Dioxide Anion Gap BUN Creatinine Estimated GFR BUN/Creatinine Ratio Glucose POC Glucose 327 H Calcium Total Bilirubin Direct Bilirubin AST ALT Alkaline Phosphatase Total Protein Albumin Albumin/Globulin Ratio Amylase Lipase HCG, Qual Negative Urine Color Straw Urine Turbidity Clear Urine pH 5.0 Ur Specific [place] 1.002 L Urine Protein <15 mg/dl Urine Glucose (UA) Neg Urine Ketones Neg Urine Blood Neg Urine Nitrite Neg Urine Bilirubin Neg Urine Urobilinogen < 2.0 Ur Leukocyte Esterase Neg Urine WBC (Auto) < 1.0 Urine RBC (Auto) < 1.0 04/08/18 04/08/18 04/08/18 00:06 01:09 04:57 WBC RBC Hgb 12.1 Hct 34.5 MCV MCH MCHC RDW Plt Count Lymph % (Auto) [place] % (Auto) Eos % (Auto) Baso % (Auto) Lymph # [place] # Eos # Baso # Add Manual Diff Total Counted Seg Neutrophils % Seg Neuts % (Manual) Band Neutrophils % Lymphocytes % (Manual) Reactive Lymphs % (Man) Monocytes % (Manual) Eosinophils % (Manual) Basophils % (Manual) Metamyelocytes % Myelocytes % Promyelocytes % Blast Cells % Nucleated RBC % Seg Neutrophils # Seg Neutrophils # Man Band Neutrophils # Lymphocytes # (Manual) Abs React Lymphs (Man) Monocytes # (Manual) Eosinophils # (Manual) Basophils # (Manual) Metamyelocytes # Myelocytes # Promyelocytes # Blast Cells # WBC Morphology Hypersegmented Neuts Hyposegmented Neuts Hypogranular Neuts Smudge Cells Toxic Granulation Toxic Vacuolation Dohle Bodies Pelger-Huet Anomaly Abida Rods Platelet Estimate Clumped Platelets Plt Clumps, EDTA Large Platelets Giant Platelets Platelet Satelliting Plt Morphology Comment RBC Morphology Dimorphic RBCs Polychromasia Hypochromasia Poikilocytosis Anisocytosis Microcytosis Macrocytosis Spherocytes Pappenheimer Bodies Sickle Cells Target Cells Tear Drop Cells Ovalocytes Helmet Cells Smalls-Claude Bodies [place] Rings [place] Cells Bite Cells Crenated Cell Elliptocytes Acanthocytes (Spur) Rouleaux Hemoglobin C Crystals Schistocytes Malaria parasites Jay Bodies Hem Pathologist Commnt PT INR Sodium Potassium Chloride Carbon Dioxide Anion Gap BUN Creatinine Estimated GFR BUN/Creatinine Ratio Glucose POC Glucose 345 H 290 H Calcium Total Bilirubin Direct Bilirubin AST ALT Alkaline Phosphatase Total Protein Albumin Albumin/Globulin Ratio Amylase Lipase HCG, Qual Urine Color Urine Turbidity Urine pH Ur Specific [place] Urine Protein Urine Glucose (UA) Urine Ketones Urine Blood Urine Nitrite Urine Bilirubin Urine Urobilinogen Ur Leukocyte Esterase Urine WBC (Auto) Urine RBC (Auto) 04/08/18 07:25 WBC RBC Hgb 12.0 Hct 35.3 MCV MCH MCHC RDW Plt Count Lymph % (Auto) [place] % (Auto) Eos % (Auto) Baso % (Auto) Lymph # [place] # Eos # Baso # Add Manual Diff Total Counted Seg Neutrophils % Seg Neuts % (Manual) Band Neutrophils % Lymphocytes % (Manual) Reactive Lymphs % (Man) Monocytes % (Manual) Eosinophils % (Manual) Basophils % (Manual) Metamyelocytes % Myelocytes % Promyelocytes % Blast Cells % Nucleated RBC % Seg Neutrophils # Seg Neutrophils # Man Band Neutrophils # Lymphocytes # (Manual) Abs React Lymphs (Man) Monocytes # (Manual) Eosinophils # (Manual) Basophils # (Manual) Metamyelocytes # Myelocytes # Promyelocytes # Blast Cells # WBC Morphology Hypersegmented Neuts Hyposegmented Neuts Hypogranular Neuts Smudge Cells Toxic Granulation Toxic Vacuolation Dohle Bodies Pelger-Huet Anomaly Abida Rods Platelet Estimate Clumped Platelets Plt Clumps, EDTA Large Platelets Giant Platelets Platelet Satelliting Plt Morphology Comment RBC Morphology Dimorphic RBCs Polychromasia Hypochromasia Poikilocytosis Anisocytosis Microcytosis Macrocytosis Spherocytes Pappenheimer Bodies Sickle Cells Target Cells Tear Drop Cells Ovalocytes Helmet Cells Smalls-Claude Bodies [place] Rings [place] Cells Bite Cells Crenated Cell Elliptocytes Acanthocytes (Spur) Rouleaux Hemoglobin C Crystals Schistocytes Malaria parasites Jay Bodies Hem Pathologist Commnt PT INR Sodium Potassium Chloride Carbon Dioxide Anion Gap BUN Creatinine Estimated GFR BUN/Creatinine Ratio Glucose POC Glucose Calcium Total Bilirubin Direct Bilirubin AST ALT Alkaline Phosphatase Total Protein Albumin Albumin/Globulin Ratio Amylase Lipase HCG, Qual Urine Color Urine Turbidity Urine pH Ur Specific [place] Urine Protein Urine Glucose (UA) Urine Ketones Urine Blood Urine Nitrite Urine Bilirubin Urine Urobilinogen Ur Leukocyte Esterase Urine WBC (Auto) Urine RBC (Auto) Assessment and Plan 1.generalized abdominal pain 2.intractable N/V 3.dark emesis 4.DM uncontrolled 5.H/o gastroparesis 6.obesity -afebrile -WBC-WNL -H/H WNL (12.0/35.3)- continue to monitor H/H and transfuse as needed -LFTs and lipase WNL -abd CT unremarkable -EGD and GES in [place] 08/2017 for similar symptoms revealed a non-bleeding ulcer and gastroparesis per pt report (record unavailable) -patient with worsening of chronic abd pain and N/V over the past few days with dark brown emesis- no hematemesis, melena, or hematochezia -etiology-likely 2/2 gastroparesis flare -keep NPO for now -no plans for EGD at this time given no clinical evidence of significant GI bleeding -left leg weakness this am- d/c reglan- further workup/evaluation per hospitalist -continue PPI, antiemetics, and supportive care -limit narcotics -avoid NSAIDs -optimize glycemic control (Blood glucose > 300 upon admission) -electrolyte management per primary team -will follow
[2018-04-08] MEDS: PROTONIX IV SCH ×2 (10:57→21:15)
[2018-04-08] MEDS: NACL 0.45% 1000 ML 1,000 ML IV SCH ×2 (12:45→23:53)
--- NOTE | 2018-04-08 15:22 | Progress Note ---
Assessment and Plan 1. Diffuse abdominal pain 2. Intractable N/V 3. Dehydration due to n/v 4. Uncontrol DM type 2 5. Recurrent gastroparesis (likely due to uncontrolled DM 6. HTN 7. Obesity Plan Admit to [facility] for abdominal pain /n/v Consult GI for upper GIB eval Keep NPO then start on clear liquid from tomorrow IVF for hydration Morphine PRN for abdominal pain Protonix 40 IV BID Initiate glycemic management with insulin per Sliding scale NS for hydration, renal perfusion Chek Electrolytes K/Mg Subjective Date of service: 04/08/18 Interval history: Patient seen and examined C/O epigastric pain discussed with mother at bedside, had multiple admissions last year for similar reason Objective - Constitutional Vitals: Vital Signs - 12hr 04/08/18 04/08/18 04/08/18 04:41 04:46 05:01 Temperature 98.5 F Pulse Rate 125 H 125 H Respiratory 21 18 Rate Blood Pressure 191/100 191/100 Blood Pressure [Left] O2 Sat by Pulse 99 Oximetry 04/08/18 04/08/18 04/08/18 05:16 06:06 08:48 Temperature 98.0 F Pulse Rate 100 H 125 H Respiratory 18 18 18 Rate Blood Pressure 163/97 Blood Pressure 102/58 [Left] O2 Sat by Pulse 95 Oximetry 04/08/18 12:51 Temperature 98.3 F Pulse Rate 120 H Respiratory 18 Rate Blood Pressure 173/94 Blood Pressure [Left] O2 Sat by Pulse 100 Oximetry General appearance: Present: no acute distress, obese - EENT Eyes: PERRL, EOM intact ENT: hearing intact, clear oral mucosa Ears: bilateral: normal - Neck Neck: supple, normal ROM - Respiratory Respiratory effort: normal Respiratory: bilateral: CTA - Breasts Breasts: normal - Cardiovascular Rhythm: regular Heart Sounds: Present: S1 & S2. Absent: gallop, rub Extremities: pulses intact, No edema, normal color, Full ROM - Gastrointestinal General gastrointestinal: Present: soft, tender (epigastric), non-distended, normal bowel sounds - Integumentary Integumentary: clear, warm, dry - Musculoskeletal Musculoskeletal: 1, strength equal bilaterally - Neurologic Neurologic: moves all extremities - Psychiatric Psychiatric: memory intact, appropriate mood/affect, intact judgment & insight - Labs CBC & Chem 7: 04/08/18 07:25 04/09/18 06:01 Labs: Abnormal lab results 04/07/18 04/07/18 04/08/18 Range/Units 16:57 18:54 01:09 POC Glucose 327 H 345 H (70-105) Ur Specific [place] 1.002 L (1.003-1.030) 04/08/18 04/08/18 Range/Units 04:57 12:54 POC Glucose 290 H 299 H (70-105) Ur Specific [place] (1.003-1.030)
[2018-04-08] MEDS: SODIUM CHLORIDE FLUSH SYRINGE 10 ML IV SCH ×2 (16:04→21:15)
[2018-04-08] MEDS ORDERED: INSULIN REGULAR SQ SCH (18:00)
[2018-04-08] MEDS ORDERED: INSULIN ISOPHANE SQ SCH (18:00)
[2018-04-08] MEDS ORDERED: NON-FORMULARY (Enalapril Maleate [Vasotec] 10 MG) PO SCH (22:00)
[2018-04-08] MEDS: ZESTRIL PO SCH (23:51)
[2018-04-09] MEDS: MORPHINE IV PRN ×3 (04:05→22:44)
[2018-04-09] MEDS: ZOFRAN IV PRN (04:05)
[2018-04-09] MEDS: APRESOLINE IV SCH ×3 (06:09→18:57)
[2018-04-09 06:53] LABS: Calcium 8.6 mg/dL (8.4-10.2)
[2018-04-09] MEDS: HumaLOG SUB-Q SCH ×3 (06:53→18:58)
[2018-04-09] MEDS: PROTONIX IV SCH (08:47)
--- NOTE | 2018-04-09 09:44 | Gastroenterology Progress Note ---
Assessment and Plan - Patient Problems (1) Gastroparesis Current Visit: Yes Status: Acute Plan to address problem: - Poor control of DM chronically (last a1C in [place] was 16% by report). - Improved over the last 24 hours with bowel rest. - Will add librax, and recommend continued wean of morphine (would recommend d/c; now down to 1 Q 8 hours PRN). - Continue protonix daily therapy. - Will advance to full liquid diet; may advance as tolerated after that. - Recommend avoid reglan now, since slowly improving, unless significant regression. - OK to d/c home when taking PO. Will sign off; please call if needed. Subjective Date of service: 04/09/18 Principal diagnosis: Gastroparesis Interval history: The patient is tolerating ice chips and sips of water/clears. She has no blood in her emesis or stools. She has lessened abdominal pain. Objective - Constitutional Vitals: Temp Pulse Resp BP Pulse Ox 97.8 F 104 H 20 165/98 98 04/09/18 08:26 04/09/18 08:41 04/09/18 09:06 04/09/18 08:26 04/09/18 09:06 General appearance: no acute distress - Respiratory Respiratory effort: normal Respiratory: bilateral: CTA - Cardiovascular Rhythm: regular Heart Sounds: Present: S1 & S2 - Gastrointestinal General gastrointestinal: Present: soft, non-tender, non-distended - Labs CBC & Chem 7: 04/08/18 07:25 04/09/18 06:01 Labs: Laboratory Results - last 24 hr 04/08/18 04/08/18 04/08/18 12:54 16:23 21:17 Sodium Potassium Chloride Carbon Dioxide Anion Gap BUN Creatinine Estimated GFR BUN/Creatinine Ratio Glucose POC Glucose 299 H 288 H 277 H Calcium 04/09/18 04/09/18 06:01 06:26 Sodium 138 Potassium 4.0 Chloride 101.7 Carbon Dioxide 22 Anion Gap 18 BUN 19 H Creatinine 1.5 H Estimated GFR 46 BUN/Creatinine Ratio 13 Glucose 360 H POC Glucose 298 H Calcium 8.6
[2018-04-09] MEDS ORDERED: NOVOLIN SQ SCH (10:00)
[2018-04-09] MEDS: ZESTRIL PO SCH ×3 (11:28→22:42)
[2018-04-09] MEDS: LIBRAX 5-2.5 MG PO SCH ×3 (13:16→22:42)
--- NOTE | 2018-04-09 17:20 | Progress Note ---
Assessment and Plan 1. Diffuse abdominal pain, from severe gastroparesis 2. Intractable N/V, 3. Dehydration due to n/v 4. Uncontrol DM type 2 5. Severe gastroparesis (likely due to uncontrolled DM) 6. HTN 7. Obesity Plan monitor medtele for abdominal pain /n/v, IVF for hydration Consulted GI for upper GIB eval- recommended no further workup start on clear liquid from today advance as tolerated, addedd librax Morphine PRN for abdominal pain, wean off slowly Protonix 40 IV BID cont glycemic management with insulin per Sliding scale and long acting follow Electrolytes K/Mg Subjective Date of service: 04/09/18 Principal diagnosis: Gastroparesis Interval history: Patient seen and examined C/O epigastric pain, but improved tolerating clear liquid today Objective - Exam Narrative Exam: General appearance: Present: no acute distress, obese - EENT Eyes: PERRL, EOM intact ENT: hearing intact, clear oral mucosa Ears: bilateral: normal - Neck Neck: supple, normal ROM - Respiratory Respiratory effort: normal Respiratory: bilateral: CTA - Breasts Breasts: normal - Cardiovascular Rhythm: regular Heart Sounds: Present: S1 & S2. Absent: gallop, rub Extremities: pulses intact, No edema, normal color, Full ROM - Gastrointestinal General gastrointestinal: Present: soft, tender (epigastric), non-distended, normal bowel sounds - Integumentary Integumentary: clear, warm, dry - Musculoskeletal Musculoskeletal: 1, strength equal bilaterally - Neurologic Neurologic: moves all extremities - Psychiatric Psychiatric: memory intact, appropriate mood/affect, intact judgment & insight - Constitutional Vitals: Vital Signs - 12hr 04/09/18 04/09/18 04/09/18 06:08 06:09 08:26 Temperature 98.5 F 97.8 F Pulse Rate 115 H 117 H 118 H Respiratory 18 18 Rate Blood Pressure 171/101 171/101 165/98 Blood Pressure [Right] O2 Sat by Pulse 98 97 Oximetry 04/09/18 04/09/18 04/09/18 08:41 08:47 09:06 Temperature Pulse Rate 104 H Respiratory 20 20 Rate Blood Pressure Blood Pressure [Right] O2 Sat by Pulse 98 Oximetry 04/09/18 04/09/18 04/09/18 12:47 12:50 12:51 Temperature 98.2 F Pulse Rate 117 H 114 H Respiratory 20 20 20 Rate Blood Pressure 185/109 175/99 Blood Pressure 175/99 [Right] O2 Sat by Pulse 98 98 Oximetry 04/09/18 13:16 Temperature Pulse Rate Respiratory Rate Blood Pressure 175/99 Blood Pressure [Right] O2 Sat by Pulse Oximetry - Labs CBC & Chem 7: 04/08/18 07:25 04/10/18 10:19 Labs: Abnormal lab results 04/08/18 04/08/18 04/09/18 Range/Units 16:23 21:17 06:01 BUN 19 H (7-17) mg/dL Creatinine 1.5 H (0.7-1.2) mg/dL Glucose 360 H (65-100) mg/dL POC Glucose 288 H 277 H (70-105) 04/09/18 04/09/18 Range/Units 06:26 11:27 BUN (7-17) mg/dL Creatinine (0.7-1.2) mg/dL Glucose (65-100) mg/dL POC Glucose 298 H 277 H (70-105)
[2018-04-09] MEDS: SODIUM CHLORIDE FLUSH SYRINGE 10 ML IV SCH (22:51)
[2018-04-10] MEDS: APRESOLINE IV SCH ×4 (00:30→18:09)
[2018-04-10] MEDS: HumaLOG SUB-Q SCH ×4 (00:31→17:31)
[2018-04-10] MEDS: NACL 0.45% 1000 ML 1,000 ML IV SCH ×2 (06:58→22:21)
[2018-04-10] MEDS: MORPHINE IV PRN (07:17)
[2018-04-10] MEDS: ZOFRAN IV PRN ×2 (07:18→17:42)
[2018-04-10] MEDS: LIBRAX 5-2.5 MG PO SCH ×5 (09:49→22:17)
[2018-04-10] MEDS: SODIUM CHLORIDE FLUSH SYRINGE 10 ML IV SCH ×2 (09:50→22:18)
[2018-04-10] MEDS: PROTONIX IV SCH (09:50)
[2018-04-10] MEDS: ZESTRIL PO SCH ×2 (10:09→22:17)
[2018-04-10 11:08] LABS: Calcium 8.4 mg/dL (8.4-10.2)
[2018-04-10] MEDS ORDERED: MORPHINE IV PRN (12:30)
--- NOTE | 2018-04-10 16:41 | Progress Note ---
Assessment and Plan 1. Diffuse abdominal pain, from severe gastroparesis 2. Intractable N/V, 3. Dehydration due to n/v 4. Uncontrol DM type 2 5. Severe gastroparesis (likely due to uncontrolled DM) 6. HTN 7. Obesity Plan monitor medtele for abdominal pain /n/v, IVF for hydration Consulted GI for upper GIB eval- recommended no further workup diet advanced to full liquid today, added librax Morphine PRN for abdominal pain, wean off slowly Protonix 40 IV BID cont glycemic management with insulin per Sliding scale and long acting follow Electrolytes K/Mg Subjective Date of service: 04/10/18 Principal diagnosis: Gastroparesis Interval history: Patient seen and examined C/O epigastric pain, but improved c/o N/v this am, mother at bedside, updated Objective - Exam Narrative Exam: General appearance: Present: no acute distress, obese - EENT Eyes: PERRL, EOM intact ENT: hearing intact, clear oral mucosa Ears: bilateral: normal - Neck Neck: supple, normal ROM - Respiratory Respiratory effort: normal Respiratory: bilateral: CTA - Breasts Breasts: normal - Cardiovascular Rhythm: regular Heart Sounds: Present: S1 & S2. Absent: gallop, rub Extremities: pulses intact, No edema, normal color, Full ROM - Gastrointestinal General gastrointestinal: Present: soft, tender (epigastric), non-distended, normal bowel sounds - Integumentary Integumentary: clear, warm, dry - Musculoskeletal Musculoskeletal: 1, strength equal bilaterally - Neurologic Neurologic: moves all extremities - Psychiatric Psychiatric: memory intact, appropriate mood/affect, intact judgment & insight - Constitutional Vitals: Vital Signs - 12hr 04/10/18 04/10/18 04/10/18 05:50 07:00 09:23 Temperature 98.9 F 99.1 F Pulse Rate 114 H 114 H 117 H Respiratory 18 18 Rate Blood Pressure 138/85 138/85 149/86 O2 Sat by Pulse 98 100 Oximetry 04/10/18 04/10/18 04/10/18 10:00 10:09 12:48 Temperature 98.5 F Pulse Rate 118 H 117 H 113 H Respiratory 18 Rate Blood Pressure 149/86 132/86 O2 Sat by Pulse 96 100 Oximetry 04/10/18 14:08 Temperature Pulse Rate Respiratory Rate Blood Pressure 132/86 O2 Sat by Pulse Oximetry - Labs CBC & Chem 7: 04/08/18 07:25 01/13/19 10:44 Labs: Abnormal lab results 04/09/18 04/09/18 04/10/18 Range/Units 17:25 21:35 06:53 BUN (7-17) mg/dL Glucose (65-100) mg/dL POC Glucose 231 H 166 H 197 H (70-105) 04/10/18 04/10/18 Range/Units 10:19 12:49 BUN 19 H (7-17) mg/dL Glucose 228 H (65-100) mg/dL POC Glucose 170 H (70-105)
[2018-04-11] MEDS: APRESOLINE IV SCH ×5 (00:19→23:40)
[2018-04-11] MEDS: HumaLOG SUB-Q SCH ×5 (00:20→23:46)
[2018-04-11] MEDS ORDERED: MORPHINE IV PRN (03:00)
[2018-04-11] MEDS: LIBRAX 5-2.5 MG PO SCH ×4 (08:30→21:39)
[2018-04-11] MEDS: PROTONIX IV SCH ×2 (09:31→20:10)
[2018-04-11] MEDS: SODIUM CHLORIDE FLUSH SYRINGE 10 ML IV SCH ×3 (09:31→22:43)
[2018-04-11] MEDS: ZESTRIL PO SCH ×2 (09:31→21:38)
[2018-04-11] MEDS: NACL 0.45% 1000 ML 1,000 ML IV SCH (10:42)
--- NOTE | 2018-04-11 15:22 | Progress Note ---
Assessment and Plan 1. Diffuse abdominal pain, from severe gastroparesis 2. Intractable N/V, 3. Dehydration due to n/v 4. Uncontrol DM type 2 5. Severe gastroparesis (likely due to uncontrolled DM) 6. HTN 7. Obesity 8. ARIEL, due to vasomotor nephropathy - cannot r/o underlying CKD Plan monitor medtele for abdominal pain /n/v, IVF for hydration Consulted GI for upper GIB eval- recommended no further workup cont full liquid diet, librax Morphine PRN for abdominal pain, wean off slowly Protonix 40 IV BID cont glycemic management with insulin per Sliding scale and long acting follow Electrolytes K/Mg Subjective Date of service: 04/11/18 Principal diagnosis: Gastroparesis Interval history: Patient seen and examined C/O epigastric pain, but improved no N/v today, mother at bedside, updated States feels better and states able to keep food down at a small amount Objective - Exam Narrative Exam: General appearance: Present: no acute distress, obese - EENT Eyes: PERRL, EOM intact ENT: hearing intact, clear oral mucosa Ears: bilateral: normal - Neck Neck: supple, normal ROM - Respiratory Respiratory effort: normal Respiratory: bilateral: CTA - Breasts Breasts: normal - Cardiovascular Rhythm: regular Heart Sounds: Present: S1 & S2. Absent: gallop, rub Extremities: pulses intact, No edema, normal color, Full ROM - Gastrointestinal General gastrointestinal: Present: soft, tender (epigastric), non-distended, normal bowel sounds - Integumentary Integumentary: clear, warm, dry - Musculoskeletal Musculoskeletal: 1, strength equal bilaterally - Neurologic Neurologic: moves all extremities - Psychiatric Psychiatric: memory intact, appropriate mood/affect, intact judgment & insight - Constitutional Vitals: Vital Signs - 12hr 04/11/18 04/11/18 04/11/18 04:23 06:57 09:31 Temperature 98.1 F Pulse Rate 106 H 106 H 106 H Respiratory 17 Rate Blood Pressure 149/87 149/87 149/87 O2 Sat by Pulse 99 Oximetry 04/11/18 04/11/18 04/11/18 10:00 10:02 11:32 Temperature 98.9 F 98.9 F Pulse Rate 114 H 105 H Respiratory 18 18 Rate Blood Pressure 166/96 134/85 O2 Sat by Pulse 96 99 Oximetry 04/11/18 11:33 Temperature Pulse Rate 105 H Respiratory Rate Blood Pressure 134/85 O2 Sat by Pulse Oximetry - Labs CBC & Chem 7: 04/08/18 07:25 04/12/18 10:52 Labs: Abnormal lab results 04/11/18 04/11/18 Range/Units 10:44 11:33 Sodium 133 L (137-145) mmol/L Potassium 3.5 L (3.6-5.0) mmol/L BUN 18 H (7-17) mg/dL Creatinine 1.3 H (0.7-1.2) mg/dL Glucose 140 H (65-100) mg/dL POC Glucose 130 H (70-105) Calcium 8.0 L (8.4-10.2) mg/dL
[2018-04-11] MEDS: KCL 10MEQ/100ML 10 MEQ/100 ML BAG IV SCH ×3 (17:22→21:30)
[2018-04-12] MEDS: APRESOLINE IV SCH ×3 (05:12→18:03)
[2018-04-12] MEDS: NACL 0.45% 1000 ML 1,000 ML IV SCH (05:17)
[2018-04-12] MEDS: HumaLOG SUB-Q SCH ×3 (07:23→18:01)
[2018-04-12 08:55] VITALS: BP 127/78
[2018-04-12] MEDS: PROTONIX IV SCH (09:12)
[2018-04-12] MEDS: ZESTRIL PO SCH (09:12)
[2018-04-12] MEDS: SODIUM CHLORIDE FLUSH SYRINGE 10 ML IV SCH (09:12)
[2018-04-12] MEDS: LIBRAX 5-2.5 MG PO SCH ×3 (09:51→17:51)
[2018-04-12 11:27] LABS: Calcium 7.9 mg/dL (8.4-10.2)
--- NOTE | 2018-04-12 13:39 | Discharge Summary ---
Providers - Providers Date of Admission: 04/07/18 21:13 Date of discharge: 04/12/18 Attending physician: KYLE GALVEZ 04/07/18 21:35 Consult to Physician [CONS] Routine Comment: Consulting Provider: JOSE DELUCA Physician Instructions: Reason For Exam: GIB Primary care physician: [employer] Hospitalization Condition: Fair Pertinent studies: Ct abdomen/pelvis Renal US Hospital course: Patient is a 43 y/o female with PMH of DM, HTN, obesity, and gastroparesis who presented to ED with c/o abdominal pain, N/V with "dark" emesis. Blood glucose was > [address] was unremarkable. H/H was WNL. For last 6-7 months she has been requiring multiple hospitalizations with prior workup with an EGD and gastric emptying study while in [place] this past August (08/2017) that revealed a non-bleeding ulcer and gastroparesis per pt report. Patient was monitored medtele for abdominal pain /n/v, given IVF for hydration, Consulted GI for upper GIB eval- recommended no further workup. Patient was placed on full liquid diet, given librax, Protonix 40 IV BID, glycemic control managed with insulin per Sliding scale and also with long acting, followed Electrolytes K/Mg. She was slowly improved, then discharged home in stable condition. Discharge diagnosis: 1. Diffuse abdominal pain, from severe gastroparesis, resolved 2. Intractable N/V, 3. Dehydration due to n/v 4. Uncontrol DM type 2 5. Severe gastroparesis (likely due to uncontrolled DM) 6. HTN 7. Obesity 8. ARIEL, due to vasomotor nephropathy - cannot r/o underlying CKD Disposition: TO HOME OR SELFCARE Time spent for discharge: 34 minutes Core Measure Documentation - Palliative Care Palliative Care/ Comfort Measures: Not Applicable - Core Measures Any of the following diagnoses?: none Exam - Physical Exam Narrative exam: General appearance: Present: no acute distress, obese - EENT Eyes: PERRL, EOM intact ENT: hearing intact, clear oral mucosa Ears: bilateral: normal - Neck Neck: supple, normal ROM - Respiratory Respiratory effort: normal Respiratory: bilateral: CTA - Breasts Breasts: normal - Cardiovascular Rhythm: regular Heart Sounds: Present: S1 & S2. Absent: gallop, rub Extremities: pulses intact, No edema, normal color, Full ROM - Gastrointestinal General gastrointestinal: Present: soft, tender (epigastric), non-distended, normal bowel sounds - Integumentary Integumentary: clear, warm, dry - Musculoskeletal Musculoskeletal: 1, strength equal bilaterally - Neurologic Neurologic: moves all extremities - Psychiatric Psychiatric: memory intact, appropriate mood/affect, intact judgment & insight - Constitutional Vitals: Temp Pulse Resp BP Pulse Ox 97.8 F 98 H 16 127/78 99 04/12/18 08:53 04/12/18 08:53 04/12/18 08:53 04/12/18 08:53 04/12/18 08:53 Plan Activity: advance as tolerated Weight Bearing Status: Weight Bear as Tolerated Diet: advance as tolerated Special Instructions: record blood sugar diary Follow up with: PRIMARY CARE, [Primary Care Provider] - 3-5 Days Prescriptions: chlordiazePOXIDE/CLIDINIUM [Librax 5-2.5 mg] 1 cap PO ACHS #90 capsule Pantoprazole [Protonix TAB] 40 mg PO QDAY #30 tablet
--- NOTE | 2018-04-12 13:49 | Ultrasound Report ---
ULTRASOUND RENAL BILATERAL HISTORY: Chronic kidney disease. TECHNIQUE: transabdominal ultrasound with color Doppler interrogation. FINDINGS: Scans of the kidneys show normal renal contours. There is normal central calyceal clustering and good preservation of the cortical thickness. There is no evidence of mass or hydronephrosis. The views of the bladder and the region of the ureters appear normal. IMPRESSION: Unremarkable renal ultrasound.
== END 2018-04-12 20:02 | disposition home or self-care (01) | DRG 73 ==
LOC: ED 12:47 → 4A 21:13
PROVIDERS: ADMIT Internal Medicine; ATTEND Internal Medicine
DX: E11.43 Type 2 diabetes mellitus with diabetic autonomic (poly)neuropathy (principal); N17.0 Acute kidney failure with tubular necrosis; K31.84 Gastroparesis; E11.65 Type 2 diabetes mellitus with hyperglycemia; E86.0 Dehydration; E66.9 Obesity, unspecified; E11.22 Type 2 diabetes mellitus with diabetic chronic kidney disease; I12.9 Hypertensive chronic kidney disease with stage 1 through stage 4 chronic kidney disease, or unspecified chronic kidney disease; N18.9 Chronic kidney disease, unspecified; Z90.711 Acquired absence of uterus with remaining cervical stump; Z91.041 Radiographic dye allergy status; Z68.34 Body mass index [BMI] 34.0-34.9, adult
CPT/HCPCS: 36415; 74176; 76770; 80048; 80076; 81001; 82150; 82962; 83690; 84703; 85007; 85014; 85018; 85025; 85610; 87116; 96361; 96374; 96375; G0378; C9113; J0360; J1200; J1815; J2270; J2405; J2765; J3010; J3480; J7030

== ENCOUNTER 2018-04-29 22:31 | Emergency (ER) | payer MEDICAID, OTHER ==
[2018-04-29] MEDS ORDERED: NACL 0.9% 1000 ML 1,000 ML ONE (23:07)
[2018-04-29] MEDS ORDERED: ZOFRAN ONE (23:07)
[2018-04-29 23:32] LABS: Basophils % (Auto) 0.3 % (0.0-1.8); Eosinophils % (Auto) 0.3 % (0.0-4.3); Hematocrit 36.3 % (30.3-42.9); Hemoglobin 12.1 gm/dl (10.1-14.3); Lymphocytes # (Auto) 1.9 K/mm3 (1.2-5.4); Lymphocytes % (Auto) 17.6 % (13.4-35.0); Mean Corpuscular HGB Conc 33 % (30-34); Mean Corpuscular Volume 83 fl (79-97); Monocytes # (Auto) 0.6 K/mm3 (0.0-0.8); Monocytes % (Auto) 5.7 % (0.0-7.3); Platelet Count 393 K/mm3 (140-440); Red Cell Distribution Width 14.2 % (13.2-15.2)
[2018-04-29] MEDS ORDERED: ZOFRAN IM ONE (23:36)
[2018-04-29] MEDS ORDERED: NACL 0.9% 1000 ML 1,000 ML IV ONE (23:37)
[2018-04-29 23:45] LABS: Albumin 3.6 g/dL (3.9-5); BUN/Creatinine Ratio 11; Blood Urea Nitrogen 13 mg/dL (7-17); Calcium 8.7 mg/dL (8.4-10.2); Hemolysis Index 2
[2018-04-29 23:54] LABS: Alanine Aminotransferase < 5 units/L (7-56)
[2018-04-30] MEDS ORDERED: HALDOL IM ONE (00:36)
[2018-04-30 00:39] VITALS: BP 139/82
--- NOTE | 2018-04-30 00:44 | Emergency Department Report ---
ED General Adult HPI - General Chief complaint: Nausea/Vomiting/Diarrhea Stated complaint: ABDOMINAL PAIN Time Seen by Provider: 04/29/18 22:42 Source: patient Mode of arrival: Stretcher Limitations: No Limitations - History of Present Illness Initial comments: Patient presents to emergency department today complaining of nausea vomiting. Patient history of gastroparesis and was just recently discharged from [facility] on this past Thursday. Patient denies any chest pain, shortness breath, or headache. -: Gradual Radiation: non-radiation Severity scale (0 -10): 2 Quality: burning, dull Consistency: constant Improves with: none Worsens with: none Associated Symptoms: denies other symptoms Treatments Prior to Arrival: none - Related Data Previous Rx's Medication Instructions Recorded Last Taken Type Enalapril Maleate [Vasotec] 10 mg PO BID #60 tablet 04/12/18 Unknown Rx NovoLIN 70/30 16 units SQ QPM 30 Days #2 04/12/18 Unknown Rx Novolin 70-30 100 Unit/ml Vial 35 units SQ QAM 30 Days #2 04/12/18 Unknown Rx Pantoprazole [Protonix] 40 mg PO QDAY #30 tablet 04/12/18 Unknown Rx chlordiazePOXIDE/CLIDINIUM [Librax 1 cap PO ACHS #90 capsule 04/12/18 Unknown Rx 5-2.5 mg] Metoclopramide [Reglan] 10 mg PO TID PRN #21 tab 04/30/18 Unknown Rx Scopolamine [Transderm-Scop] 1 each TD Q3D #4 patch 04/30/18 Unknown Rx Allergies Allergy/AdvReac Type Severity Reaction Status Date / Time iodine Allergy Unknown Verified 04/07/18 13:15 ED Review of Systems ROS: Stated complaint: ABDOMINAL PAIN Other details as noted in HPI Comment: All other systems reviewed and negative Constitutional: denies: chills, fever Eyes: denies: eye pain, eye discharge, vision change ENT: denies: ear pain, throat pain Respiratory: denies: cough, shortness of breath, wheezing Cardiovascular: denies: chest pain, palpitations Endocrine: no symptoms reported Gastrointestinal: nausea, vomiting. denies: abdominal pain, diarrhea Genitourinary: denies: urgency, dysuria, discharge Musculoskeletal: denies: back pain, joint swelling, arthralgia Skin: denies: rash, lesions Neurological: denies: headache, weakness, paresthesias Psychiatric: denies: anxiety, depression Hematological/Lymphatic: denies: easy bleeding, easy bruising ED Past Medical Hx - Past Medical History Previous Medical History?: Yes Hx Hypertension: Yes Hx Congestive Heart Failure: No Hx Diabetes: Yes Hx GERD: Yes (Ulcers) Hx Asthma: No Hx COPD: No Hx HIV: No Additional medical history: Gastroparesis - Surgical History Past Surgical History?: No - Social History Smoking Status: Never Smoker Substance Use Type: Prescribed - Medications Home Medications: Home Medications Medication Instructions Recorded Confirmed Last Taken Type Enalapril Maleate [Vasotec] 10 mg PO BID #60 tablet 04/12/18 Unknown Rx NovoLIN 70/30 16 units SQ QPM 30 Days #2 04/12/18 Unknown Rx Novolin 70-30 100 Unit/ml Vial 35 units SQ QAM 30 Days #2 04/12/18 Unknown Rx Pantoprazole [Protonix] 40 mg PO QDAY #30 tablet 04/12/18 Unknown Rx chlordiazePOXIDE/CLIDINIUM [Librax 1 cap PO ACHS #90 capsule 04/12/18 Unknown Rx 5-2.5 mg] Metoclopramide [Reglan] 10 mg PO TID PRN #21 tab 04/30/18 Unknown Rx Scopolamine [Transderm-Scop] 1 each TD Q3D #4 patch 04/30/18 Unknown Rx ED Physical Exam - General Limitations: No Limitations General appearance: alert, in no apparent distress - Head Head exam: Present: atraumatic, normocephalic - Eye Eye exam: Present: normal appearance, PERRL, EOMI - ENT ENT exam: Present: mucous membranes dry - Neck Neck exam: Present: normal inspection - Respiratory Respiratory exam: Present: normal lung sounds bilaterally. Absent: respiratory distress, wheezes, rales - Cardiovascular Cardiovascular Exam: Present: normal rhythm, tachycardia. Absent: systolic murmur, diastolic murmur, rubs, gallop - GI/Abdominal GI/Abdominal exam: Present: soft, normal bowel sounds. Absent: distended, tenderness - Extremities Exam Extremities exam: Present: normal inspection - Back Exam Back exam: Present: normal inspection - Neurological Exam Neurological exam: Present: alert, oriented X3, CN II-XII intact. Absent: motor sensory deficit - Psychiatric Psychiatric exam: Present: normal affect, normal mood - Skin Skin exam: Present: warm, dry, intact, normal color. Absent: rash ED Course Vital Signs 04/29/18 04/29/18 04/29/18 22:37 22:38 22:45 Temperature 98.9 F Pulse Rate 115 H Respiratory 20 Rate Blood Pressure 194/101 174/96 169/102 O2 Sat by Pulse 99 97 100 Oximetry 04/29/18 04/29/18 04/29/18 23:00 23:15 23:30 Temperature Pulse Rate Respiratory Rate Blood Pressure 166/102 145/95 157/98 O2 Sat by Pulse Oximetry 04/29/18 04/30/18 04/30/18 23:45 00:00 00:15 Temperature Pulse Rate Respiratory Rate Blood Pressure 162/86 166/84 152/83 O2 Sat by Pulse 98 96 99 Oximetry 04/30/18 00:30 Temperature Pulse Rate Respiratory Rate Blood Pressure 139/82 O2 Sat by Pulse Oximetry ED Medical Decision Making - Lab Data Result diagrams: 04/29/18 23:09 04/29/18 23:09 Lab Results 04/29/18 04/29/18 Range/Units 23:09 23:09 WBC 10.8 (4.5-11.0) K/mm3 RBC 4.40 (3.65-5.03) M/mm3 Hgb 12.1 (10.1-14.3) gm/dl Hct 36.3 (30.3-42.9) % MCV 83 (79-97) fl MCH 28 (28-32) pg MCHC 33 (30-34) % RDW 14.2 (13.2-15.2) % Plt Count 393 (140-440) K/mm3 Lymph % (Auto) 17.6 (13.4-35.0) % [place] % (Auto) 5.7 (0.0-7.3) % Eos % (Auto) 0.3 (0.0-4.3) % Baso % (Auto) 0.3 (0.0-1.8) % Lymph # 1.9 (1.2-5.4) K/mm3 [place] # 0.6 (0.0-0.8) K/mm3 Eos # 0.0 (0.0-0.4) K/mm3 Baso # 0.0 (0.0-0.1) K/mm3 Seg Neutrophils % 76.1 H (40.0-70.0) % Seg Neutrophils # 8.3 H (1.8-7.7) K/mm3 Sodium 137 (137-145) mmol/L Potassium 3.1 L (3.6-5.0) mmol/L Chloride 98.7 (98-107) mmol/L Carbon Dioxide 22 (22-30) mmol/L Anion Gap 19 mmol/L BUN 13 (7-17) mg/dL Creatinine 1.2 (0.7-1.2) mg/dL Estimated GFR 60 ml/min BUN/Creatinine Ratio 11 % Glucose 176 H (65-100) mg/dL Calcium 8.7 (8.4-10.2) mg/dL Total Bilirubin 0.40 (0.1-1.2) mg/dL AST < 5 L (5-40) units/L ALT < 5 L (7-56) units/L Alkaline Phosphatase 89 (35-129) units/L Total Protein 7.2 (6.3-8.2) g/dL Albumin 3.6 L (3.9-5) g/dL Albumin/Globulin Ratio 1.0 % Lipase 24 (13-60) units/L - Medical Decision Making Patient improved after Hipolito and Genaro Critical care attestation.: If time is entered above; I have spent that time in minutes in the direct care of this critically ill patient, excluding procedure time. ED Disposition Clinical Impression: Gastroparesis Disposition: DC- TO HOME OR SELFCARE Is pt being admited?: No Does the pt Need Aspirin: No Condition: Stable Instructions: Acute Nausea and Vomiting (ED) Additional Instructions: return if worse Prescriptions: Metoclopramide [Reglan] 10 mg PO TID PRN #21 tab PRN Reason: Nausea Scopolamine [Transderm-Scop] 1 each TD Q3D #4 patch Referrals: [facility] [Provider Group] - 3-5 Days [facility] [Provider Group] - 3-5 Days Time of Disposition: 01:06
== END 2018-04-30 01:40 | disposition home or self-care (01) ==
LOC: ED 22:31
DX: K31.84 Gastroparesis (principal); I10 Essential (primary) hypertension; K21.9 Gastro-esophageal reflux disease without esophagitis; E11.9 Type 2 diabetes mellitus without complications; Z91.041 Radiographic dye allergy status; Z79.4 Long term (current) use of insulin
CPT/HCPCS: 36415; 80053; 83690; 85025; 96360; 96361; 96372; 99283; J1630; J2405; J7030

== ENCOUNTER 2018-05-03 15:00 | Inpatient (IN) | payer MEDICAID, OTHER ==
[2018-05-03] MEDS ORDERED: NACL 0.9% 1000 ML 1,000 ML IV ONE ×2 (16:20→19:33)
[2018-05-03] MEDS ORDERED: BENADRYL IV ONE (16:20)
[2018-05-03] MEDS ORDERED: SUBLIMAZE IV ONE (16:20)
--- NOTE | 2018-05-03 16:32 | Emergency Department Report ---
HPI - General Chief Complaint: Nausea/Vomiting/Diarrhea Time Seen by Provider: 05/03/18 15:57 - HPI HPI: Canelo 27 The patient is a 43-year-old female presenting with chief complaint of nausea vomiting and abdominal pain. The patient has history of gastroparesis and states for the past 4 days she's nausea and vomiting in addition to midepigastric abdominal pain. Patient describes her abdominal pain is throbbing in nature and states it feels consistent with her previous bouts of gastroparesis. Patient denies dysuria or hematuria. Patient gives her pain score 10/10. Location: Gastrointestinal system Duration: 4 days Quality: Throbbing Severity: 10/10 Modifying factors: [see above] Context: [see above] Mode of transportation: [not driving] ED Past Medical Hx - Past Medical History Previous Medical History?: Yes Hx Hypertension: Yes Hx Diabetes: Yes Hx GERD: Yes (Ulcers) Additional medical history: Gastroparesis - Surgical History Past Surgical History?: No - Family History Family history: no significant - Social History Smoking Status: Never Smoker Substance Use Type: None (denies illicit drug use) - Medications Home Medications: Home Medications Medication Instructions Recorded Confirmed Last Taken Type Enalapril Maleate [Vasotec] 10 mg PO BID #60 tablet 04/12/18 Unknown Rx NovoLIN 70/30 16 units SQ QPM 30 Days #2 04/12/18 Unknown Rx Novolin 70-30 100 Unit/ml Vial 35 units SQ QAM 30 Days #2 04/12/18 Unknown Rx Pantoprazole [Protonix] 40 mg PO QDAY #30 tablet 04/12/18 Unknown Rx chlordiazePOXIDE/CLIDINIUM [Librax 1 cap PO ACHS #90 capsule 04/12/18 Unknown Rx 5-2.5 mg] Metoclopramide [Reglan] 10 mg PO TID PRN #21 tab 04/30/18 Unknown Rx Scopolamine [Transderm-Scop] 1 each TD Q3D #4 patch 04/30/18 Unknown Rx ED Review of Systems ROS: Stated complaint: N/V 2-3DAYS Other details as noted in HPI Constitutional: fever (subjective) Eyes: denies: eye pain ENT: denies: throat pain Respiratory: no symptoms reported Cardiovascular: denies: chest pain Endocrine: no symptoms reported Gastrointestinal: abdominal pain, nausea, vomiting. denies: diarrhea Genitourinary: denies: dysuria, hematuria Musculoskeletal: denies: back pain Neurological: denies: headache Physical Exam - Physical Exam Vital Signs: Vital Signs 05/03/18 15:48 Temperature 98.9 F Pulse Rate 108 H Respiratory 20 Rate Blood Pressure 160/110 O2 Sat by Pulse 99 Oximetry Physical Exam: GENERAL: The patient is well-developed well-nourished female lying on stretcher not appearing to be in acute distress. [] HEENT: Normocephalic. Atraumatic. Extraocular motions are intact. Patient has moist mucous membranes. NECK: Supple. Trachea midline CHEST/LUNGS: Clear to auscultation. There is no respiratory distress noted. HEART/CARDIOVASCULAR: Regular. There is no tachycardia. There is no gallop rub or murmur. ABDOMEN: Abdomen is soft, with mild discomfort to palpation in the midepigastric region. Patient has normal bowel sounds. There is no abdominal distention. SKIN: There is no rash. There is no edema. There is no diaphoresis. NEURO: The patient is awake, alert, and oriented. The patient is cooperative. The patient has normal speech MUSCULOSKELETAL: There is no evidence of acute injury. ED Course Vital Signs 05/03/18 15:48 Temperature 98.9 F Pulse Rate 108 H Respiratory 20 Rate Blood Pressure 160/110 O2 Sat by Pulse 99 Oximetry ED Medical Decision Making - Lab Data Result diagrams: 05/03/18 16:27 05/03/18 16:27 - Medical Decision Making Patient remains tachycardic despite IV fluids still complains of nausea. Patient's creatinine has bumped from last visit. Will admnit to the hospital for further hydration - Differential Diagnosis gastroparesis, dehydration Critical care attestation.: If time is entered above; I have spent that time in minutes in the direct care of this critically ill patient, excluding procedure time. ED Disposition Clinical Impression: Gastroparesis, Intractable nausea and vomiting, Tachycardia, Hypokalemia Disposition: -09 OP ADMIT IP TO THIS HOSP Is pt being admited?: Yes Does the pt Need Aspirin: No Condition: Fair Time of Disposition: 19:47 (hospitalist notified (Dr Landrum))
[2018-05-03 16:38] LABS: Basophils % (Auto) 0.2 % (0.0-1.8); Hematocrit 36.8 % (30.3-42.9); Hemoglobin 12.5 gm/dl (10.1-14.3); Lymphocytes # (Auto) 1.6 K/mm3 (1.2-5.4); Lymphocytes % (Auto) 15.7 % (13.4-35.0); Mean Corpuscular HGB Conc 34 % (30-34); Mean Corpuscular Volume 82 fl (79-97); Monocytes # (Auto) 0.5 K/mm3 (0.0-0.8); Monocytes % (Auto) 5.2 % (0.0-7.3); Platelet Count 404 K/mm3 (140-440); Red Blood Count 4.47 M/mm3 (3.65-5.03); Red Cell Distribution Width 14.1 % (13.2-15.2)
[2018-05-03] MEDS ORDERED: REGLAN IV ONE (17:22)
[2018-05-03 17:26] LABS: BUN/Creatinine Ratio 9; Blood Urea Nitrogen 12 mg/dL (7-17); Calcium 9.2 mg/dL (8.4-10.2); Hemolysis Index 5
[2018-05-03 17:28] LABS: Alanine Aminotransferase < 5 units/L (7-56)
[2018-05-03 18:18] LABS: Bilirubin,Urine NEG (Negative); Blood,Urine NEG (Negative); Color,Urine Yellow (Yellow); Mucus,Urine FEW /HPF; Urobilinogen,Urine < 2.0 mg/dL (<2.0)
[2018-05-03 18:25] LABS: Protein,Urine >500 mg/dL (Negative)
[2018-05-03] MEDS ORDERED: ZOFRAN IV ONE (19:33)
[2018-05-03] MEDS ORDERED: K-DUR PO ONE ×2 (19:41→20:33)
[2018-05-03] MEDS ORDERED: DILAUDID IV PRN (20:20)
[2018-05-03] MEDS ORDERED: ALUM-MAG HYDROX-SIMETH 200-200-20MG/5ML PO PRN (21:13)
[2018-05-03] MEDS ORDERED: ZOFRAN IV PRN ×2 (21:13→21:59)
[2018-05-03] MEDS ORDERED: TYLENOL PO PRN (21:13)
[2018-05-03] MEDS ORDERED: REGLAN IV PRN (21:49)
--- NOTE | 2018-05-03 21:54 | History and Physical Report ---
Addendum entered and electronically signed by MIKAYLA MANUEL 05/04/18 07:47: Original Note: History of Present Illness Date of examination: 05/03/18 Date of admission: 05/03/18 19:45 Chief complaint: n/v History of present illness: Pt is a 43 year old female with PMHx of DM type 2, gastroperisis who returns to the ER for c/o intractable n/v that never releived since the last admission. Pt was seen previously in the ER with the same complaints, she states that she was visiting from [place] since last visit and she is stuck here in [place] because of her illness. Pt and SO in room reports non-stop vomiting, abdominal discomfort, pt states that she is unable to eat or drink because of nausea, she run out of medications to relieved her symptoms. Pt denies headache, denies dizziness, denies diarrhea, denies fever, denies chills. Pt was initially seen and treated in the ER and admitted for further evaluation with GI. Past History Past Medical History: diabetes, other (gastroperesis) Social history: no significant social history Family history: no significant family history Medications and Allergies Allergies Allergy/AdvReac Type Severity Reaction Status Date / Time iodine Allergy Unknown Verified 04/07/18 13:15 Home Medications Medication Instructions Recorded Confirmed Last Taken Type Enalapril Maleate [Vasotec] 10 mg PO BID #60 tablet 04/12/18 Unknown Rx NovoLIN 70/30 16 units SQ QPM 30 Days #2 04/12/18 Unknown Rx Novolin 70-30 100 Unit/ml Vial 35 units SQ QAM 30 Days #2 04/12/18 Unknown Rx Pantoprazole [Protonix] 40 mg PO QDAY #30 tablet 04/12/18 Unknown Rx chlordiazePOXIDE/CLIDINIUM [Librax 1 cap PO ACHS #90 capsule 04/12/18 Unknown Rx 5-2.5 mg] Metoclopramide [Reglan] 10 mg PO TID PRN #21 tab 04/30/18 Unknown Rx Scopolamine [Transderm-Scop] 1 each TD Q3D #4 patch 04/30/18 Unknown Rx Active Meds: Active Medications Acetaminophen (Tylenol) 650 mg PO Q4H PRN PRN Reason: Pain MILD(1-3)/Fever >100.5/DAVID Al Hydrox/Mg Hydrox/Simethicone (Alum-Mag Hydrox-Simeth [id number]/5ml) 30 ml PO Q4H PRN PRN Reason: Indigestion Famotidine (Pepcid) 20 mg IV BID [facility] Potassium Chloride/Dextrose/Sod Cl (D5w/0.45% Nacl/Kcl 20 Meq) 20 meq in 1,000 mls @ 100 mls/hr IV DIRECT [facility] Metoclopramide HCl (Reglan) 10 mg IV Q6H PRN PRN Reason: Nausea And Vomiting Morphine Sulfate (Morphine) 2 mg IV Q4H PRN PRN Reason: Pain, Moderate (4-6) Ondansetron HCl (Zofran) 4 mg IV Q4H PRN PRN Reason: Nausea And Vomiting Sodium Chloride (Sodium Chloride Flush Syringe 10 Ml) 10 ml IV BID [facility] Review of Systems Constitutional: anorexia, poor appetite Gastrointestinal: abdominal pain, nausea, vomiting Exam - Constitutional Vitals: Temp Pulse Resp BP Pulse Ox 99.1 F 105 H 18 154/98 96 05/03/18 19:28 05/03/18 21:01 05/03/18 19:28 05/03/18 19:28 05/03/18 19:28 General appearance: Present: mild distress - EENT Eyes: Present: PERRL, EOM intact ENT: hearing intact - Neck Neck: Present: supple - Respiratory Respiratory effort: normal Respiratory: bilateral: CTA - Cardiovascular Rhythm: regular Heart Sounds: Present: S1 & S2 - Extremities Extremities: no ischemia, No edema Peripheral Pulses: within normal limits - Abdominal General gastrointestinal: Present: deferred - Rectal Rectal Exam: deferred - Integumentary Integumentary: Present: clear, warm, dry - Musculoskeletal Musculoskeletal: strength equal bilaterally - Psychiatric Psychiatric: cooperative - Neurologic Neurologic: moves all extremities Results - Labs CBC & Chem 7: 05/04/18 05:16 05/04/18 05:16 Labs: Laboratory Last Values WBC 9.9 K/mm3 (4.5-11.0) 05/03/18 16:27 RBC 4.47 M/mm3 (3.65-5.03) 05/03/18 16:27 Hgb 12.5 gm/dl (10.1-14.3) 05/03/18 16:27 Hct 36.8 % (30.3-42.9) 05/03/18 16:27 MCV 82 fl (79-97) 05/03/18 16:27 MCH 28 pg (28-32) 05/03/18 16:27 MCHC 34 % (30-34) 05/03/18 16:27 RDW 14.1 % (13.2-15.2) 05/03/18 16:27 Plt Count 404 K/mm3 (140-440) 05/03/18 16:27 Lymph % (Auto) 15.7 % (13.4-35.0) 05/03/18 16:27 [place] % (Auto) 5.2 % (0.0-7.3) 05/03/18 16:27 Eos % (Auto) 0.0 % (0.0-4.3) 05/03/18 16:27 Baso % (Auto) 0.2 % (0.0-1.8) 05/03/18 16:27 Lymph # 1.6 K/mm3 (1.2-5.4) 05/03/18 16:27 [place] # 0.5 K/mm3 (0.0-0.8) 05/03/18 16:27 Eos # 0.0 K/mm3 (0.0-0.4) 05/03/18 16:27 Baso # 0.0 K/mm3 (0.0-0.1) 05/03/18 16:27 Seg Neutrophils % 78.9 % (40.0-70.0) H 05/03/18 16:27 Seg Neutrophils # 7.8 K/mm3 (1.8-7.7) H 05/03/18 16:27 Sodium 140 mmol/L (137-145) 05/03/18 16:27 Potassium 3.3 mmol/L (3.6-5.0) L 05/03/18 16:27 Chloride 99.5 mmol/L (98-107) 05/03/18 16:27 Carbon Dioxide 26 mmol/L (22-30) 05/03/18 16:27 Anion Gap 18 mmol/L 05/03/18 16:27 BUN 12 mg/dL (7-17) 05/03/18 16:27 Creatinine 1.4 mg/dL (0.7-1.2) H 05/03/18 16:27 Estimated GFR 50 ml/min 05/03/18 16:27 BUN/Creatinine Ratio 9 % 05/03/18 16:27 Glucose 280 mg/dL (65-100) H 05/03/18 16:27 Calcium 9.2 mg/dL (8.4-10.2) 05/03/18 16:27 Total Bilirubin 0.40 mg/dL (0.1-1.2) 05/03/18 16:27 AST 7 units/L (5-40) 05/03/18 16:27 ALT < 5 units/L (7-56) L 05/03/18 16:27 Alkaline Phosphatase 92 units/L (35-129) 05/03/18 16:27 Total Protein 7.5 g/dL (6.3-8.2) 05/03/18 16:27 Albumin 4.0 g/dL (3.9-5) 05/03/18 16:27 Albumin/Globulin Ratio 1.1 % 05/03/18 16:27 Lipase 22 units/L (13-60) 05/03/18 16:27 Urine Color Yellow (Yellow) 05/03/18 17:41 Urine Turbidity Clear (Clear) 05/03/18 17:41 Urine pH 7.0 (5.0-7.0) 05/03/18 17:41 Ur Specific [place] 1.011 (1.003-1.030) 05/03/18 17:41 Urine Protein >500 mg/dL (Negative) 05/03/18 17:41 Urine Glucose (UA) 150 mg/dL (Negative) 05/03/18 17:41 Urine Ketones Tr mg/dL (Negative) 05/03/18 17:41 Urine Blood Neg (Negative) 05/03/18 17:41 Urine Nitrite Neg (Negative) 05/03/18 17:41 Urine Bilirubin Neg (Negative) 05/03/18 17:41 Urine Urobilinogen < 2.0 mg/dL (<2.0) 05/03/18 17:41 Ur Leukocyte Esterase Neg (Negative) 05/03/18 17:41 Urine WBC (Auto) 1.0 /HPF (0.0-6.0) 05/03/18 17:41 Urine RBC (Auto) 2.0 /HPF (0.0-6.0) 05/03/18 17:41 U Epithel Cells (Auto) 1.0 /HPF (0-13.0) 05/03/18 17:41 Urine Mucus Few /HPF 05/03/18 17:41 Assessment and Plan Assessment and plan: 1. Intractable n/v 2. Recurrent Gastroparesis 3. Uncontrol DM type 2 4. Obesity Plan: Pt is admitted for intractable n/v IVF for hydration Starts antiemetic with Zofran and reglan morphine PRN for pain Consult GI for evaluation Glycemic management with insulin per Sliding scale Further plan per hospital course Advance Directives: Yes VTE prophylaxis?: Mechanical Plan of care discussed with patient/family: Yes
[2018-05-03] MEDS ORDERED: D5W/0.45% NACL/KCL 20 MEQ 20 MEQ/1,000 ML BAG IV SCH (22:00)
[2018-05-03] MEDS ORDERED: SODIUM CHLORIDE FLUSH SYRINGE 10 ML IV SCH (22:00)
[2018-05-03] MEDS ORDERED: PEPCID IV SCH (22:00)
[2018-05-03] MEDS: MORPHINE IV PRN (22:47)
[2018-05-03] MEDS: PEPCID IV SCH (22:47)
[2018-05-03] MEDS: SODIUM CHLORIDE FLUSH SYRINGE 10 ML IV SCH (22:48)
[2018-05-04] MEDS: APRESOLINE IV PRN ×2 (04:42→10:44)
[2018-05-04] MEDS: ZOFRAN IV PRN ×3 (04:42→21:11)
[2018-05-04] MEDS: MORPHINE IV PRN (04:43)
[2018-05-04 06:08] LABS: Basophils % (Auto) 0.4 % (0.0-1.8); Eosinophils % (Auto) 0.1 % (0.0-4.3); Hematocrit 32.8 % (30.3-42.9); Lymphocytes # (Auto) 1.5 K/mm3 (1.2-5.4); Lymphocytes % (Auto) 16.8 % (13.4-35.0); Mean Corpuscular HGB Conc 34 % (30-34); Mean Corpuscular Volume 82 fl (79-97); Monocytes # (Auto) 0.6 K/mm3 (0.0-0.8); Platelet Count 368 K/mm3 (140-440); Red Blood Count 3.99 M/mm3 (3.65-5.03); Red Cell Distribution Width 14.1 % (13.2-15.2)
[2018-05-04 06:23] LABS: Calcium 8.5 mg/dL (8.4-10.2)
[2018-05-04] MEDS: HumuLIN R SUB-Q SCH ×4 (08:25→21:13)
[2018-05-04] MEDS ORDERED: REGLAN PO PRN (09:00)
[2018-05-04] MEDS ORDERED: NON-FORMULARY (Enalapril Maleate [Vasotec] 10 MG) PO SCH (10:00)
[2018-05-04] MEDS ORDERED: NOVOLIN SQ SCH (10:00)
[2018-05-04] MEDS: PROTONIX PO SCH (10:16)
[2018-05-04] MEDS: ZESTRIL PO SCH ×2 (10:16→21:11)
[2018-05-04] MEDS: SODIUM CHLORIDE FLUSH SYRINGE 10 ML IV SCH ×2 (10:16→21:12)
[2018-05-04] MEDS: PEPCID IV SCH ×2 (10:16→21:11)
[2018-05-04] MEDS: TRANSDERM-SCOP TD SCH (10:17)
[2018-05-04] MEDS: LIBRAX 5-2.5 MG PO SCH ×3 (11:30→21:11)
--- NOTE | 2018-05-04 11:46 | Gastroenterology Consultation ---
<MERRILL ZAMAN - Last Filed: 05/04/18 12:02> History of Present Illness - Reason for Consult Consult date: 05/04/18 intractable N/V, gastroparesis Requesting physician: MIKAYLA MANUEL - History of Present Illness Patient is a 43 y/o female with PMH of DM (uncontrolled), HTN, obesity, and gastroparesis (dx 2017 in [place] after EGD and GES per pt report) who presented to ED with c/o intractable N/V with associated abdominal discomfort and inability to tolerate PO to which GI has been consulted. Patient is previously known to our service from a consult just last month (04/08/18) for similar symptoms which improved with conservative management. This morning patient was sitting up in bed w/o acute distress but ill appearing with 2 episodes of vomiting (emesis non-bloody bile colored) upon exam. She states that her symptoms never compl etely resolved after being discharged last month and became increasing worse 2 days ago. No current abd pain. Abd CT 04/07/18 unremarkable. Admits to recent wt loss due to N/V but denies CP, SOB, fever, dysphagia, signs of bleeding, or LGI symptoms. No NSAID use. Blood glucose on admission 280. Past History Past Medical History: diabetes, hypertension, other (gastroperesis, obesity, PUD?) Past Surgical History: hysterectomy, Other (left hip sx as a child, EGD and GES 08/2017 in [place]) Social history: denies: smoking, alcohol abuse Family history: no significant family history Medications and Allergies Allergies Allergy/AdvReac Type Severity Reaction Status Date / Time iodine Allergy Unknown Verified 04/07/18 13:15 Home Medications Medication Instructions Recorded Confirmed Last Taken Type Enalapril Maleate [Vasotec] 10 mg PO BID #60 tablet 04/12/18 Unknown Rx NovoLIN 70/30 16 units SQ QPM 30 Days #2 04/12/18 Unknown Rx Novolin 70-30 100 Unit/ml Vial 35 units SQ QAM 30 Days #2 04/12/18 Unknown Rx Pantoprazole [Protonix] 40 mg PO QDAY #30 tablet 04/12/18 Unknown Rx chlordiazePOXIDE/CLIDINIUM [Librax 1 cap PO ACHS #90 capsule 04/12/18 Unknown Rx 5-2.5 mg] Metoclopramide [Reglan] 10 mg PO TID PRN #21 tab 04/30/18 Unknown Rx Scopolamine [Transderm-Scop] 1 each TD Q3D #4 patch 04/30/18 Unknown Rx Active Meds: Active Medications Acetaminophen (Tylenol) 650 mg PO Q4H PRN PRN Reason: Pain MILD(1-3)/Fever >100.5/DAVID Chlordiazepoxide/Clidinium (Librax 5-2.5 Mg) 1 cap PO [facility] Famotidine (Pepcid) 20 mg IV BID [facility] Last Admin: 05/04/18 10:16 Dose: 20 mg Documented by: Hydralazine HCl (Apresoline) 20 mg IV Q6HR PRN PRN Reason: Blood Pressure Last Admin: 05/04/18 10:44 Dose: 20 mg Documented by: Insulin Human Isoph/Insulin Regular (Humulin 70/30) 35 unit SUB-Q QAMDIAB [facility] Last Admin: 05/04/18 10:14 Dose: 35 unit Documented by: Insulin Human Isoph/Insulin Regular (Humulin 70/30) 16 unit SUB-Q QPMDIAB [facility] Insulin Human Regular (Humulin R) 0 units SUB-Q [facility]; Protocol Last Admin: 05/04/18 08:25 Dose: 2 units Documented by: Lisinopril (Zestril) 10 mg PO BID [facility] Last Admin: 05/04/18 10:16 Dose: 10 mg Documented by: Metoclopramide HCl (Reglan) 10 mg IV Q6H PRN PRN Reason: Nausea And Vomiting Metoclopramide HCl (Reglan) 10 mg PO TID PRN PRN Reason: Nausea Metoprolol Tartrate (Lopressor) 5 mg IV Q6HR [facility] Morphine Sulfate (Morphine) 2 mg IV Q4H PRN PRN Reason: Pain, Moderate (4-6) Last Admin: 05/04/18 04:43 Dose: 2 mg Documented by: Ondansetron HCl (Zofran) 4 mg IV Q4H PRN PRN Reason: Nausea And Vomiting Last Admin: 05/04/18 04:42 Dose: 4 mg Documented by: Pantoprazole Sodium (Protonix) 40 mg PO QDAY [facility] Last Admin: 05/04/18 10:16 Dose: 40 mg Documented by: Scopolamine (Transderm-Scop) 1 each TD Q3D [facility] Last Admin: 05/04/18 10:17 Dose: 1 each Documented by: Sodium Chloride (Sodium Chloride Flush Syringe 10 Ml) 10 ml IV BID [facility] Last Admin: 05/04/18 10:16 Dose: 10 ml Documented by: medications reviewed/updated as required Review of Systems - Review of Systems All systems: negative Gastrointestinal: nausea, vomiting Exam - Constitutional Vital Signs: Temp Pulse Resp BP Pulse Ox 98.3 F 108 H 20 202/112 96 05/04/18 08:07 05/04/18 08:07 05/04/18 08:07 05/04/18 10:44 05/04/18 08:07 General appearance: mild distress (2/2 intractable N/V), obese - EENT Eyes: PERRL, EOM intact ENT: hearing intact - Respiratory Respiratory: bilateral: CTA - Cardiovascular Rhythm: other (tachycardia) - Gastrointestinal General gastrointestinal: Present: soft, tender (slight TTP in epigastric area), non-distended, normal bowel sounds - Neurologic Neurological: alert and oriented x3 - Labs CBC & Chem 7: 05/04/18 05:16 05/04/18 05:16 Lab Results: Laboratory Results - last 24 hr 05/03/18 05/03/18 05/03/18 16:27 16:27 17:41 WBC 9.9 RBC 4.47 Hgb 12.5 Hct 36.8 MCV 82 MCH 28 MCHC 34 RDW 14.1 Plt Count 404 Lymph % (Auto) 15.7 [place] % (Auto) 5.2 Eos % (Auto) 0.0 Baso % (Auto) 0.2 Lymph # 1.6 [place] # 0.5 Eos # 0.0 Baso # 0.0 Seg Neutrophils % 78.9 H Seg Neutrophils # 7.8 H Sodium 140 Potassium 3.3 L Chloride 99.5 Carbon Dioxide 26 Anion Gap 18 BUN 12 Creatinine 1.4 H Estimated GFR 50 BUN/Creatinine Ratio 9 Glucose 280 H POC Glucose Calcium 9.2 Total Bilirubin 0.40 AST 7 ALT < 5 L Alkaline Phosphatase 92 Total Protein 7.5 Albumin 4.0 Albumin/Globulin Ratio 1.1 Lipase 22 Urine Color Yellow Urine Turbidity Clear Urine pH 7.0 Ur Specific [place] 1.011 Urine Protein >500 Urine Glucose (UA) 150 Urine Ketones Tr Urine Blood Neg Urine Nitrite Neg Urine Bilirubin Neg Urine Urobilinogen < 2.0 Ur Leukocyte Esterase Neg Urine WBC (Auto) 1.0 Urine RBC (Auto) 2.0 U Epithel Cells (Auto) 1.0 Urine Mucus Few 05/04/18 05/04/18 05/04/18 05:16 05:16 05:50 WBC 8.9 RBC 3.99 Hgb 11.0 Hct 32.8 MCV 82 MCH 28 MCHC 34 RDW 14.1 Plt Count 368 Lymph % (Auto) 16.8 [place] % (Auto) 7.0 Eos % (Auto) 0.1 Baso % (Auto) 0.4 Lymph # 1.5 [place] # 0.6 Eos # 0.0 Baso # 0.0 Seg Neutrophils % 75.7 H Seg Neutrophils # 6.7 Sodium 145 Potassium 3.2 L Chloride 105.3 Carbon Dioxide 24 Anion Gap 19 BUN 11 Creatinine 1.2 Estimated GFR 60 BUN/Creatinine Ratio 9 Glucose 217 H POC Glucose 209 H Calcium 8.5 Total Bilirubin AST ALT Alkaline Phosphatase Total Protein Albumin Albumin/Globulin Ratio Lipase Urine Color Urine Turbidity Urine pH Ur Specific [place] Urine Protein Urine Glucose (UA) Urine Ketones Urine Blood Urine Nitrite Urine Bilirubin Urine Urobilinogen Ur Leukocyte Esterase Urine WBC (Auto) Urine RBC (Auto) U Epithel Cells (Auto) Urine Mucus 05/04/18 10:56 WBC RBC Hgb Hct MCV MCH MCHC RDW Plt Count Lymph % (Auto) [place] % (Auto) Eos % (Auto) Baso % (Auto) Lymph # [place] # Eos # Baso # Seg Neutrophils % Seg Neutrophils # Sodium Potassium Chloride Carbon Dioxide Anion Gap BUN Creatinine Estimated GFR BUN/Creatinine Ratio Glucose POC Glucose 203 H Calcium Total Bilirubin AST ALT Alkaline Phosphatase Total Protein Albumin Albumin/Globulin Ratio Lipase Urine Color Urine Turbidity Urine pH Ur Specific [place] Urine Protein Urine Glucose (UA) Urine Ketones Urine Blood Urine Nitrite Urine Bilirubin Urine Urobilinogen Ur Leukocyte Esterase Urine WBC (Auto) Urine RBC (Auto) U Epithel Cells (Auto) Urine Mucus Assessment and Plan 1.intractable N/V 2.DM uncontrolled 3.H/o gastroparesis 4.obesity -afebrile -WBC-WNL -H/H WNL (12.0/35.3)- continue to monitor H/H and transfuse as needed -LFTs and lipase WNL -abd CT 04/07/18 unremarkable -EGD and GES in [place] 08/2017 for similar symptoms revealed a non-bleeding ulcer and gastroparesis per pt report (record unavailable) -etiology-likely 2/2 gastroparesis vs other -will schedule for EGD in am -keep NPO -continue PPI, antiemetics, and supportive care -avoid narcotics -avoid NSAIDs -optimize glycemic control (Blood glucose 280 upon admission) -electrolyte management per primary team -will follow <MEHUL PAZ - Last Filed: 05/04/18 14:37> Medications and Allergies Active Meds: Active Medications Acetaminophen (Tylenol) 650 mg PO Q4H PRN PRN Reason: Pain MILD(1-3)/Fever >100.5/DAVID Chlordiazepoxide/Clidinium (Librax 5-2.5 Mg) 1 cap PO [facility] Famotidine (Pepcid) 20 mg IV BID [facility] Last Admin: 05/04/18 10:16 Dose: 20 mg Documented by: Hydralazine HCl (Apresoline) 20 mg IV Q6HR PRN PRN Reason: Blood Pressure Last Admin: 05/04/18 10:44 Dose: 20 mg Documented by: Insulin Human Isoph/Insulin Regular (Humulin 70/30) 35 unit SUB-Q [facility]AM[facility]AB [facility] Last Admin: 05/04/18 10:14 Dose: 35 unit Documented by: Insulin Human Isoph/Insulin Regular (Humulin 70/30) 16 unit SUB-Q QPMDIAB [facility] Insulin Human Regular (Humulin R) 0 units SUB-Q [facility]; Protocol Last Admin: 05/04/18 08:25 Dose: 2 units Documented by: Lisinopril (Zestril) 10 mg PO BID [facility] Last Admin: 05/04/18 10:16 Dose: 10 mg Documented by: Metoclopramide HCl (Reglan) 10 mg IV Q6H PRN PRN Reason: Nausea And Vomiting Metoclopramide HCl (Reglan) 10 mg PO TID PRN PRN Reason: Nausea Metoprolol Tartrate (Lopressor) 5 mg IV Q6HR [facility] Morphine Sulfate (Morphine) 2 mg IV Q4H PRN PRN Reason: Pain, Moderate (4-6) Last Admin: 05/04/18 04:43 Dose: 2 mg Documented by: Ondansetron HCl (Zofran) 4 mg IV Q4H PRN PRN Reason: Nausea And Vomiting Last Admin: 05/04/18 04:42 Dose: 4 mg Documented by: Pantoprazole Sodium (Protonix) 40 mg PO QDAY [facility] Last Admin: 05/04/18 10:16 Dose: 40 mg Documented by: Scopolamine (Transderm-Scop) 1 each TD Q3D [facility] Last Admin: 05/04/18 10:17 Dose: 1 each Documented by: Sodium Chloride (Sodium Chloride Flush Syringe 10 Ml) 10 ml IV BID [facility] Last Admin: 05/04/18 10:16 Dose: 10 ml Documented by: Exam - Constitutional Vital Signs: Temp Pulse Resp BP Pulse Ox 98.3 F 108 H 20 202/112 96 05/04/18 08:07 05/04/18 08:07 05/04/18 08:07 05/04/18 10:44 05/04/18 08:07 - Labs CBC & Chem 7: 05/04/18 05:16 05/04/18 05:16 Lab Results: Laboratory Results - last 24 hr 05/03/18 05/03/18 05/03/18 16:27 16:27 17:41 WBC 9.9 RBC 4.47 Hgb 12.5 Hct 36.8 MCV 82 MCH 28 MCHC 34 RDW 14.1 Plt Count 404 Lymph % (Auto) 15.7 [place] % (Auto) 5.2 Eos % (Auto) 0.0 Baso % (Auto) 0.2 Lymph # 1.6 [place] # 0.5 Eos # 0.0 Baso # 0.0 Seg Neutrophils % 78.9 H Seg Neutrophils # 7.8 H Sodium 140 Potassium 3.3 L Chloride 99.5 Carbon Dioxide 26 Anion Gap 18 BUN 12 Creatinine 1.4 H Estimated GFR 50 BUN/Creatinine Ratio 9 Glucose 280 H POC Glucose Calcium 9.2 Total Bilirubin 0.40 AST 7 ALT < 5 L Alkaline Phosphatase 92 Total Protein 7.5 Albumin 4.0 Albumin/Globulin Ratio 1.1 Lipase 22 Urine Color Yellow Urine Turbidity Clear Urine pH 7.0 Ur Specific [place] 1.011 Urine Protein >500 Urine Glucose (UA) 150 Urine Ketones Tr Urine Blood Neg Urine Nitrite Neg Urine Bilirubin Neg Urine Urobilinogen < 2.0 Ur Leukocyte Esterase Neg Urine WBC (Auto) 1.0 Urine RBC (Auto) 2.0 U Epithel Cells (Auto) 1.0 Urine Mucus Few 05/04/18 05/04/18 05/04/18 05:16 05:16 05:50 WBC 8.9 RBC 3.99 Hgb 11.0 Hct 32.8 MCV 82 MCH 28 MCHC 34 RDW 14.1 Plt Count 368 Lymph % (Auto) 16.8 [place] % (Auto) 7.0 Eos % (Auto) 0.1 Baso % (Auto) 0.4 Lymph # 1.5 [place] # 0.6 Eos # 0.0 Baso # 0.0 Seg Neutrophils % 75.7 H Seg Neutrophils # 6.7 Sodium 145 Potassium 3.2 L Chloride 105.3 Carbon Dioxide 24 Anion Gap 19 BUN 11 Creatinine 1.2 Estimated GFR 60 BUN/Creatinine Ratio 9 Glucose 217 H POC Glucose 209 H Calcium 8.5 Total Bilirubin AST ALT Alkaline Phosphatase Total Protein Albumin Albumin/Globulin Ratio Lipase Urine Color Urine Turbidity Urine pH Ur Specific [place] Urine Protein Urine Glucose (UA) Urine Ketones Urine Blood Urine Nitrite Urine Bilirubin Urine Urobilinogen Ur Leukocyte Esterase Urine WBC (Auto) Urine RBC (Auto) U Epithel Cells (Auto) Urine Mucus 05/04/18 10:56 WBC RBC Hgb Hct MCV MCH MCHC RDW Plt Count Lymph % (Auto) [place] % (Auto) Eos % (Auto) Baso % (Auto) Lymph # [place] # Eos # Baso # Seg Neutrophils % Seg Neutrophils # Sodium Potassium Chloride Carbon Dioxide Anion Gap BUN Creatinine Estimated GFR BUN/Creatinine Ratio Glucose POC Glucose 203 H Calcium Total Bilirubin AST ALT Alkaline Phosphatase Total Protein Albumin Albumin/Globulin Ratio Lipase Urine Color Urine Turbidity Urine pH Ur Specific [place] Urine Protein Urine Glucose (UA) Urine Ketones Urine Blood Urine Nitrite Urine Bilirubin Urine Urobilinogen Ur Leukocyte Esterase Urine WBC (Auto) Urine RBC (Auto) U Epithel Cells (Auto) Urine Mucus Assessment and Plan Pt has had N/V off and on since at least 08/2017. She states she has been hospitalized approx 16x since then. No clear etiology for N/V, except the DM with diabetic gastropathy. BMs usu 2-3x/d. No clear precipitants. She notes that Ativan has helped in the past. May need to consider Marinol. Discussed possible J-tube for volume and nutritional support if has ongoing admissions. Plan as noted to exclude other processes, including gallbladder disease.
[2018-05-04] MEDS ORDERED: LOPRESSOR IV SCH (12:00)
[2018-05-04] MEDS: TYLENOL PO PRN ×2 (14:37→21:10)
--- NOTE | 2018-05-04 16:50 | Progress Note ---
Assessment and Plan Assessment and plan: Pt is a 43 year old female with PMHx of DM type 2, gastroperisis who returns to the ER for c/o intractable n/v that never releived since the last admission. Pt was seen previously in the ER with the same complaints, she states that she was visiting from [place] since last visit and she is stuck here in [place] because of her illness. Per documentation the patient has had 16 admissions since august although tells me her diagnosis was November last year. Per patient she ran out of medications to relieved her symptoms. Pt denies headache, denies dizziness, denies diarrhea, denies fever, denies chills. Pt was initially seen and treated in the ER and admitted for further evaluation with GI. GI recommended May need to consider Marinol. Discussed possible J-tube for volume and nutritional support if has ongoing admissions. Also will need to exclude gallbladder disease. 1. Intractable n/v 2. Recurrent Gastroparesis 3. Uncontrol DM type 2, ?Diabetic Gastropathy 4. Obesity 5. Hypokalemia Plan: Continue with supportive care IVF for hydration EGD and GES in [place] 08/2017 for similar symptoms revealed a non-bleeding ulcer and gastroparesis per pt report (record unavailable) Continue antiemetic with Zofran and reglan morphine PRN for pain Consult GI for evaluation Glycemic management with insulin per Sliding scale Further plan per hospital course Per GI-will schedule for EGD in am -keep NPO -continue PPI, antiemetics, and supportive care -avoid narcotics -avoid NSAIDs -optimize glycemic control (Blood glucose 280 upon admission) -electrolyte management per primary team -will follow History Interval history: Patient seen Hospitalist Physical - Constitutional Vitals: Temp Pulse Resp BP Pulse Ox 98.3 F 106 H 20 115/71 96 05/04/18 08:07 05/04/18 13:00 05/04/18 08:07 05/04/18 14:12 05/04/18 08:07 General appearance: Present: no acute distress, mild distress, well-nourished - EENT Eyes: Present: PERRL, EOM intact ENT: hearing intact, clear oral mucosa, dentition normal - Neck Neck: Present: supple, normal ROM - Respiratory Respiratory effort: normal - Cardiovascular Rhythm: regular Heart Sounds: Present: S1 & S2, systolic murmur - Extremities Extremities: no ischemia, pulses intact, pulses symmetrical, No edema, Full ROM Peripheral Pulses: within normal limits - Abdominal General gastrointestinal: soft, tender, normal bowel sounds - Integumentary Integumentary: Present: clear, warm, dry - Psychiatric Psychiatric: appropriate mood/affect, intact judgment & insight, cooperative - Neurologic Neurologic: CNII-XII intact, moves all extremities Results - Labs CBC & Chem 7: 05/04/18 05:16 05/04/18 05:16 Labs: Laboratory Last Values WBC 8.9 K/mm3 (4.5-11.0) 05/04/18 05:16 RBC 3.99 M/mm3 (3.65-5.03) 05/04/18 05:16 Hgb 11.0 gm/dl (10.1-14.3) 05/04/18 05:16 Hct 32.8 % (30.3-42.9) 05/04/18 05:16 MCV 82 fl (79-97) 05/04/18 05:16 MCH 28 pg (28-32) 05/04/18 05:16 MCHC 34 % (30-34) 05/04/18 05:16 RDW 14.1 % (13.2-15.2) 05/04/18 05:16 Plt Count 368 K/mm3 (140-440) 05/04/18 05:16 Lymph % (Auto) 16.8 % (13.4-35.0) 05/04/18 05:16 [place] % (Auto) 7.0 % (0.0-7.3) 05/04/18 05:16 Eos % (Auto) 0.1 % (0.0-4.3) 05/04/18 05:16 Baso % (Auto) 0.4 % (0.0-1.8) 05/04/18 05:16 Lymph # 1.5 K/mm3 (1.2-5.4) 05/04/18 05:16 [place] # 0.6 K/mm3 (0.0-0.8) 05/04/18 05:16 Eos # 0.0 K/mm3 (0.0-0.4) 05/04/18 05:16 Baso # 0.0 K/mm3 (0.0-0.1) 05/04/18 05:16 Seg Neutrophils % 75.7 % (40.0-70.0) H 05/04/18 05:16 Seg Neutrophils # 6.7 K/mm3 (1.8-7.7) 05/04/18 05:16 Sodium 145 mmol/L (137-145) 05/04/18 05:16 Potassium 3.2 mmol/L (3.6-5.0) L 05/04/18 05:16 Chloride 105.3 mmol/L (98-107) 05/04/18 05:16 Carbon Dioxide 24 mmol/L (22-30) 05/04/18 05:16 Anion Gap 19 mmol/L 05/04/18 05:16 BUN 11 mg/dL (7-17) 05/04/18 05:16 Creatinine 1.2 mg/dL (0.7-1.2) 05/04/18 05:16 Estimated GFR 60 ml/min 05/04/18 05:16 BUN/Creatinine Ratio 9 % 05/04/18 05:16 Glucose 217 mg/dL (65-100) H 05/04/18 05:16 POC Glucose 203 (70-105) H 05/04/18 10:56 Calcium 8.5 mg/dL (8.4-10.2) 05/04/18 05:16 Total Bilirubin 0.40 mg/dL (0.1-1.2) 05/03/18 16:27 AST 7 units/L (5-40) 05/03/18 16:27 ALT < 5 units/L (7-56) L 05/03/18 16:27 Alkaline Phosphatase 92 units/L (35-129) 05/03/18 16:27 Total Protein 7.5 g/dL (6.3-8.2) 05/03/18 16:27 Albumin 4.0 g/dL (3.9-5) 05/03/18 16:27 Albumin/Globulin Ratio 1.1 % 05/03/18 16:27 Lipase 22 units/L (13-60) 05/03/18 16:27 Urine Color Yellow (Yellow) 05/03/18 17:41 Urine Turbidity Clear (Clear) 05/03/18 17:41 Urine pH 7.0 (5.0-7.0) 05/03/18 17:41 Ur Specific [place] 1.011 (1.003-1.030) 05/03/18 17:41 Urine Protein >500 mg/dL (Negative) 05/03/18 17:41 Urine Glucose (UA) 150 mg/dL (Negative) 05/03/18 17:41 Urine Ketones Tr mg/dL (Negative) 05/03/18 17:41 Urine Blood Neg (Negative) 05/03/18 17:41 Urine Nitrite Neg (Negative) 05/03/18 17:41 Urine Bilirubin Neg (Negative) 05/03/18 17:41 Urine Urobilinogen < 2.0 mg/dL (<2.0) 05/03/18 17:41 Ur Leukocyte Esterase Neg (Negative) 05/03/18 17:41 Urine WBC (Auto) 1.0 /HPF (0.0-6.0) 05/03/18 17:41 Urine RBC (Auto) 2.0 /HPF (0.0-6.0) 05/03/18 17:41 U Epithel Cells (Auto) 1.0 /HPF (0-13.0) 05/03/18 17:41 Urine Mucus Few /HPF 05/03/18 17:41 Nutrition/Malnutrition Assess - Dietary Evaluation Nutrition/Malnutrition Findings: Nutrition Notes Start: 05/04/18 12:14 Freq: Status: Active Protocol: Document 05/04/18 12:14 OH (Rec: 05/04/18 12:28 OH [id number]) Nutrition Notes Need for Assessment generated from: MD Order Initial or Follow up Assessment Current Diagnosis Diabetes Other Pertinent Diagnosis gastroparesis: n/v; obesity Current Diet NPO Labs/Tests k+ 3.2 GLU 209 ALB 4.0 NA 145 Pertinent Medications Humulin 70/30 Height 5 ft 6 in Weight 91.172 kg [place] Body Weight (kg) 59.09 BMI 32.4 Intake Prior to Admission Poor Weight Status Obese Subjective/Other Information MD consult for malnutrition screen. Pt. reports she has gastroparesis and is unable to keep anything down. Pt. states she has been following the diabetic diet but can only consume broth, jello, and applesauce. Currently pt NPO. Percent of energy/protein needs met: 0/0% Burn Absent Trauma Absent GI Symptoms Nausea Vomiting Current % PO Negligible #1 Nutrition Diagnosis Inadequate oral intake Etiology Uncontrolled DM/gastroparesis As Evidenced by Signs and Symptoms n/v; NPO Is patient on ventilator? No Is Patient Ambulatory and/or Out of Bed No REE-([facility]-confined to bed) 1909.104 Calculation Used for Recommendations [facility] Additional Notes FLUID: 1 mL/kcal PROTEIN: 1-1.4 G/KG/IBW (59-83 g/day) Nutrition Intervention Change Diet Order: Cont NPO and advance per MD Goal #1 Monitor for diet advancement Anticipated Discharge Needs: dm education Follow-Up By: 05/06/18 Additional Comments f/u: diet advancement; wt; need for ONS; dm education
--- NOTE | 2018-05-04 17:10 | Ultrasound Report ---
FINAL REPORT EXAM: US ABDOMEN COMPLETE HISTORY: intractable N/V TECHNIQUE: Grayscale and color doppler ultrasound imaging of the abdomen was performed. PRIORS: None. FINDINGS: Liver: The liver is normal in echogenicity. No focal hepatic lesions or intrahepatic biliary ductal d ilation. The liver measures centimeters. Gallbladder/Biliary system: Cholelithiasis and gallbladder sludge was seen. No gallbladder wall thick ening. There may be a small amount of pericholecystic fluid. Sonographic Gage sign was indeterminat e. The common bile duct measures 5 millimeters. Spleen: The spleen is normal in echogenicity. The spleen measures 10.7 centimeters. Kidneys: The kidneys are normal in echogenicity without hydronephrosis, mass, cyst or calcification. The right kidney measures 10.8 x 5.2 x 5.2 centimeters. The left kidney measures 12.6 x 5.3 centimete rs. Pancreas: The visualized portions of the pancreas demonstrate no focal lesion. Aorta/IVC: The visualized portions of the abdominal aorta and IVC are normal in caliber. Free fluid: None. IMPRESSION: Cholelithiasis and gallbladder sludge with trace pericholecystic fluid. Acute cholecystitis is not ex cluded as the sonographic Gage sign was indeterminate. Consider further evaluation with HIDA scan.
[2018-05-04] MEDS ORDERED: INSULIN REGULAR SQ SCH (18:00)
[2018-05-04] MEDS ORDERED: INSULIN ISOPHANE SQ SCH (18:00)
[2018-05-04] MEDS: ATIVAN PO SCH (21:10)
[2018-05-05] MEDS: APRESOLINE IV PRN (05:35)
[2018-05-05] MEDS: LIBRAX 5-2.5 MG PO SCH ×3 (07:30→23:07)
[2018-05-05] MEDS: HumuLIN R SUB-Q SCH ×4 (07:30→22:53)
[2018-05-05] MEDS: REGLAN IV PRN ×2 (08:56→22:46)
[2018-05-05] MEDS: NACL 0.9% 1000 ML 1,000 ML IV SCH ×2 (09:31→23:00)
[2018-05-05] MEDS ORDERED: WATER FOR IRRIG STERILE IR ONE (10:08)
--- NOTE | 2018-05-05 10:28 | Anesthesia Consultation ---
Anesthesia Consult and Med Hx Date of service: 05/05/18 - Airway Anesthetic Teeth Evaluation: Good ROM Head & Neck: Adequate Mental/Hyoid Distance: Adequate Mallampati Class: Class II Intubation Access Assessment: Probably Good - Pre-Operative Health Status ASA Pre-Surgery Classification: ASA2 Proposed Anesthetic Plan: MAC - Pulmonary Hx Asthma: No COPD: No Hx Pneumonia: Yes - Cardiovascular System Hx Hypertension: Yes - Central Nervous System Hx Psychiatric Problems: No - Gastrointestinal Hx Ulcer: Yes - Endocrine Hx End Stage Renal Disease: No - Other Systems Hx Cancer: No
--- NOTE | 2018-05-05 10:28 | Anesthesia Day of Surgery ---
Anesthesia Day of Surgery - Day of Surgery Patient Examined: Yes Patient H&P Reviewed: Yes Patient is NPO: Yes
--- NOTE | 2018-05-05 10:32 | Event Note ---
Date: 05/05/18 Patient with EGD scheduled for today. Abd U/S showed gallstones with gallbladder sludge and trace pericholecystic fluid (acute cholecystitis?). Will consult surgery consult for possible cholecystectomy.
[2018-05-05] MEDS ORDERED: XYLOCAINE 2% INFILTRATI ONE (12:35)
[2018-05-05] MEDS ORDERED: DIPRIVAN 10 MG/ML IV ONE ×2 (12:35)
--- NOTE | 2018-05-05 12:50 | Post Operative Note ---
Pre-op diagnosis: N/V Post-op diagnosis: other (Erosive esophagitis - mild) Findings: 1. Normal esophagus, with mild erosions in distal 2 cm, with Z-line at 42 cm. 2. Stomach had patchy focal erythema, c/w emetogenic gastritis. 3. Otherwise normal stomach. 4. Normal duodenum. Procedure: EGD Anesthesia: MAC Surgeon: MEHUL PAZ Estimated blood loss: none Pathology: none Condition: stable Disposition: floor (Proceed with gallbladder evaluation)
--- NOTE | 2018-05-05 13:14 | Operative Report ---
PROCEDURE: Upper endoscopy. PREOPERATIVE DIAGNOSES: Nausea, vomiting. POSTOPERATIVE DIAGNOSIS: Mild erosive esophagitis. SEDATION: MAC by Anesthesia. HISTORY: The patient is a 43-year-old woman with longstanding history of diabetes and history of nausea, vomiting since August. Procedure, indications, risks, and benefits were explained and consent was obtained. The patient was placed in left lateral decubitus position and sedated. Fuji video upper scope passed through the mouth, oropharynx into the descending duodenum. Scope was then gradually withdrawn with close inspection of mucosa. FINDINGS: 1. Mild erosive esophagitis in distal 2 cm of the esophagus. 2. Otherwise, normal esophagus with Z-line at 42 cm. 3. Mild area of patchy erythema in the proximal body of the stomach consistent with emetogenic gastritis. 4. Otherwise, normal stomach. 5. Normal duodenum and bulb. The patient tolerated the procedure well without immediate complication. IMPRESSION: 1. Mild erosive esophagitis -- may be due to vomiting. 2. Emetogenic gastritis. 3. Otherwise, normal exam. PLAN: 1. Proton pump inhibitors. 2. Proceed with gallbladder evaluation since she has gallstones. JOB# [id number] HRC/NTS
--- NOTE | 2018-05-05 13:19 | Consultation ---
History of Present Illness Consult date: 05/05/18 Chief complaint: abdominal pain, intractable n/v - History of present illness History of present illness: 43 yo F with hx of DM, gastroparesis presents to hospital with c/o several days of intractable n/v (bilious/nonbloody) and retching along with constant epigastric and mid abdominal pain. The pain is nonradiating. It is not associated with food. She was admitted to the hospital with the same symptoms last month and improved with conservative management. She underwent EGD today which was unremarkable. She has had prior w/u with EGD in [place] where she was diagnosed with gastroparesis. Denies hematochezia or melena. No f/c, cp, sob, c/d. Past History Past Medical History: diabetes, hypertension, other (gastroperesis, obesity, PUD?) Past Surgical History: hysterectomy, Other (left hip sx as a child, EGD and GES 08/2017 in [place]) Social history: denies: smoking, alcohol abuse Family history: no significant family history Medications and Allergies Allergies Allergy/AdvReac Type Severity Reaction Status Date / Time iodine Allergy Unknown Verified 04/07/18 13:15 Home Medications Medication Instructions Recorded Confirmed Last Taken Type Enalapril Maleate [Vasotec] 10 mg PO BID #60 tablet 04/12/18 05/05/18 Unknown Rx NovoLIN 70/30 16 units SQ QPM 30 Days #2 04/12/18 05/05/18 Unknown Rx Novolin 70-30 100 Unit/ml Vial 35 units SQ QAM 30 Days #2 04/12/18 05/05/18 Unknown Rx Pantoprazole [Protonix] 40 mg PO QDAY #30 tablet 04/12/18 05/05/18 Unknown Rx chlordiazePOXIDE/CLIDINIUM [Librax 1 cap PO ACHS #90 capsule 04/12/18 05/05/18 Unknown Rx 5-2.5 mg] Metoclopramide [Reglan] 10 mg PO TID PRN #21 tab 04/30/18 05/05/18 Unknown Rx Scopolamine [Transderm-Scop] 1 each TD Q3D #4 patch 04/30/18 05/05/18 Unknown Rx Active Meds: Active Medications Acetaminophen (Tylenol) 650 mg PO Q4H PRN PRN Reason: Pain MILD(1-3)/Fever >100.5/DAVID Last Admin: 05/04/18 21:10 Dose: 650 mg Documented by: Chlordiazepoxide/Clidinium (Librax 5-2.5 Mg) 1 cap PO [facility] Last Admin: 05/05/18 07:30 Dose: Not Given Documented by: Hydralazine HCl (Apresoline) 20 mg IV Q6HR PRN PRN Reason: Blood Pressure Last Admin: 05/05/18 05:35 Dose: 20 mg Documented by: Sodium Chloride (Nacl 0.9% 1000 Ml) 1,000 mls @ 50 mls/hr IV DIRECT [facility] Last Admin: 05/05/18 09:31 Dose: 50 mls/hr Documented by: Insulin Human Isoph/Insulin Regular (Humulin 70/30) 35 unit SUB-Q QAMDIAB [facility] Last Admin: 05/05/18 08:00 Dose: Not Given Documented by: Insulin Human Isoph/Insulin Regular (Humulin 70/30) 16 unit SUB-Q QPMDIAB [facility] Last Admin: 05/04/18 17:16 Dose: Not Given Documented by: Insulin Human Regular (Humulin R) 0 units SUB-Q [facility]; Protocol Last Admin: 05/05/18 07:30 Dose: Not Given Documented by: Lisinopril (Zestril) 10 mg PO BID [facility] Last Admin: 05/04/18 21:11 Dose: 10 mg Documented by: Lorazepam (Ativan) 0.5 mg PO BID [facility] Last Admin: 05/04/18 21:10 Dose: 0.5 mg Documented by: Metoclopramide HCl (Reglan) 10 mg IV Q6H PRN PRN Reason: Nausea And Vomiting Last Admin: 05/05/18 08:56 Dose: 10 mg Documented by: Metoclopramide HCl (Reglan) 10 mg PO TID PRN PRN Reason: Nausea Morphine Sulfate (Morphine) 2 mg IV Q4H PRN PRN Reason: Pain, Moderate (4-6) Last Admin: 05/04/18 04:43 Dose: 2 mg Documented by: Ondansetron HCl (Zofran) 4 mg IV Q4H PRN PRN Reason: Nausea And Vomiting Last Admin: 05/04/18 21:11 Dose: 4 mg Documented by: Pantoprazole Sodium (Protonix) 40 mg PO QDAY [facility] Last Admin: 05/04/18 10:16 Dose: 40 mg Documented by: Scopolamine (Transderm-Scop) 1 each TD Q3D [facility] Last Admin: 05/04/18 10:17 Dose: 1 each Documented by: Sodium Chloride (Sodium Chloride Flush Syringe 10 Ml) 10 ml IV BID [facility] Last Admin: 05/04/18 21:12 Dose: 10 ml Documented by: Review of Systems All systems: negative (10 pt ROS performed and negative except for that listed in HPI) Exam Vital Signs Temp Pulse Resp BP Pulse Ox 98.9 F 108 H 20 160/110 99 05/03/18 15:48 05/03/18 15:48 05/03/18 15:48 05/03/18 15:48 05/03/18 15:48 Narrative exam: Gen: AAOx3. moderate distress due to nausea and vomiting ENT: no scleral icterus or conjunctival pallor CV: S1, S2+ Resp: even and unlabored Abd: soft, ND, + TTP in epigastrum and lower abdomen. no r/r/g Ext: no c/c/e Results - Labs 05/04/18 05:16 05/04/18 05:16 Abnormal lab results 05/04/18 05/05/18 Range/Units 20:50 06:23 POC Glucose 156 H 171 H (70-105) - Imaging CT scan - abdomen: report reviewed, image reviewed CT scan - pelvis: report reviewed, image reviewed US - abdomen: report reviewed, image reviewed Assessment and Plan 43 yo F with 1. intractable n/v 2. gastroparesis 3. gallbladder sludge 4. uncontrolled DM Plan: 1. NPO 2. IVF 3. replace K 4. repeat labs in am 5. prn pain and nausea control 6. discussed the case with Dr. Sanchez. Although her symptoms are likely related to gastroparesis, she does have sludge in gallbladder on abdominal ultrasound and ?pericholecystic fluid. I spoke with the patient and her brothers about role of cholecystectomy in this situation. I explained that a small percentage of the patient's symptoms may be related to the gallbladder and by removing it we can eliminate it from the differential diagnosis if her n/v continues. I explained that she may still have her current symptoms even after the gallbladder is removed and she understands. She is agreeable to proceed with cholecystectomy. Will check with OR and try to get her scheduled for tomorrow. Thank you, please call with questions.
--- NOTE | 2018-05-05 14:25 | Post Anesthesia Evaluation ---
- Post Anesthesia Evaluation Patient Participated: Yes (sleeping) Airway Patent: Yes Stable Respiratory Function: Yes Nausea/Vomiting: No Temp > 96.8F: Yes Pain Manageable: Yes Adequeate Hydration: Yes Anesthesia Complications: No Block Receding Appropriately: Not Applicable Patient on Ventilator: No
--- NOTE | 2018-05-05 16:30 | Progress Note ---
Assessment and Plan Assessment and plan: Pt is a 43 year old female with PMHx of DM type 2, gastroperisis who returns to the ER for c/o intractable n/v that never releived since the last admission. Pt was seen previously in the ER with the same complaints, she states that she was visiting from [place] since last visit and she is stuck here in [place] because of her illness. Per documentation the patient has had 16 admissions since august although tells me her diagnosis was November last year. Per patient she ran out of medications to relieved her symptoms. Pt denies headache, denies dizziness, denies diarrhea, denies fever, denies chills. Pt was initially seen and treated in the ER and admitted for further evaluation with GI. GI recommended May need to consider Marinol. Discussed possible J-tube for volume and nutritional support if has ongoing admissions. Also will need to exclude gallbladder disease. 1. Intractable n/v 2. Recurrent Gastroparesis 3. Cholelithasis 4. Uncontrol DM type 2, ?Diabetic Gastropathy 5. Obesity 6. Hypokalemia Plan: Continue with supportive care IVF for hydration EGD and GES in [place] 08/2017 for similar symptoms revealed a non-bleeding ulcer and gastroparesis per pt report (record unavailable) Continue antiemetic with Zofran and reglan Surgery consulted based on imaging of the abdomen. Plan for cholecystectomy EGD shows mild erosion in distal 2cm with Z-line at 42 cm morphine PRN for pain Consult GI for evaluation Glycemic management with insulin per Sliding scale Further plan per hospital course - Surgery for cholecystectomy -keep NPO -continue PPI, antiemetics, and supportive care -avoid narcotics -avoid NSAIDs -optimize glycemic control (Blood glucose 280 upon admission) -electrolyte management per primary team -will follow History Interval history: Patient seen and examined, continued with some abdominal pain, BP better today. Hospitalist Physical - Physical exam Narrative exam: General appearance: Present: no acute distress, mild distress, well-nourished - EENT Eyes: Present: PERRL, EOM intact ENT: hearing intact, clear oral mucosa, dentition normal - Neck Neck: Present: supple, normal ROM - Respiratory Respiratory effort: normal - Cardiovascular Rhythm: regular Heart Sounds: Present: S1 & S2, systolic murmur - Extremities Extremities: no ischemia, pulses intact, pulses symmetrical, No edema, Full ROM Peripheral Pulses: within normal limits - Abdominal General gastrointestinal: soft, tender, normal bowel sounds - Integumentary Integumentary: Present: clear, warm, dry - Psychiatric Psychiatric: appropriate mood/affect, intact judgment & insight, cooperative - Neurologic Neurologic: CNII-XII intact, moves all extremities - Constitutional Vitals: Temp Pulse Resp BP Pulse Ox 98.9 F 108 H 15 132/93 98 05/05/18 12:51 05/05/18 13:21 05/05/18 13:21 05/05/18 13:21 05/05/18 13:21 General appearance: Present: no acute distress, mild distress, well-nourished Results - Labs CBC & Chem 7: 05/04/18 05:16 05/04/18 05:16 Labs: Laboratory Last Values WBC 8.9 K/mm3 (4.5-11.0) 05/04/18 05:16 RBC 3.99 M/mm3 (3.65-5.03) 05/04/18 05:16 Hgb 11.0 gm/dl (10.1-14.3) 05/04/18 05:16 Hct 32.8 % (30.3-42.9) 05/04/18 05:16 MCV 82 fl (79-97) 05/04/18 05:16 MCH 28 pg (28-32) 05/04/18 05:16 MCHC 34 % (30-34) 05/04/18 05:16 RDW 14.1 % (13.2-15.2) 05/04/18 05:16 Plt Count 368 K/mm3 (140-440) 05/04/18 05:16 Lymph % (Auto) 16.8 % (13.4-35.0) 05/04/18 05:16 [place] % (Auto) 7.0 % (0.0-7.3) 05/04/18 05:16 Eos % (Auto) 0.1 % (0.0-4.3) 05/04/18 05:16 Baso % (Auto) 0.4 % (0.0-1.8) 05/04/18 05:16 Lymph # 1.5 K/mm3 (1.2-5.4) 05/04/18 05:16 [place] # 0.6 K/mm3 (0.0-0.8) 05/04/18 05:16 Eos # 0.0 K/mm3 (0.0-0.4) 05/04/18 05:16 Baso # 0.0 K/mm3 (0.0-0.1) 05/04/18 05:16 Seg Neutrophils % 75.7 % (40.0-70.0) H 05/04/18 05:16 Seg Neutrophils # 6.7 K/mm3 (1.8-7.7) 05/04/18 05:16 Sodium 145 mmol/L (137-145) 05/04/18 05:16 Potassium 3.2 mmol/L (3.6-5.0) L 05/04/18 05:16 Chloride 105.3 mmol/L (98-107) 05/04/18 05:16 Carbon Dioxide 24 mmol/L (22-30) 05/04/18 05:16 Anion Gap 19 mmol/L 05/04/18 05:16 BUN 11 mg/dL (7-17) 05/04/18 05:16 Creatinine 1.2 mg/dL (0.7-1.2) 05/04/18 05:16 Estimated GFR 60 ml/min 05/04/18 05:16 BUN/Creatinine Ratio 9 % 05/04/18 05:16 Glucose 217 mg/dL (65-100) H 05/04/18 05:16 POC Glucose 171 (70-105) H 05/05/18 06:23 Calcium 8.5 mg/dL (8.4-10.2) 05/04/18 05:16 Total Bilirubin 0.40 mg/dL (0.1-1.2) 05/03/18 16:27 AST 7 units/L (5-40) 05/03/18 16:27 ALT < 5 units/L (7-56) L 05/03/18 16:27 Alkaline Phosphatase 92 units/L (35-129) 05/03/18 16:27 Total Protein 7.5 g/dL (6.3-8.2) 05/03/18 16:27 Albumin 4.0 g/dL (3.9-5) 05/03/18 16:27 Albumin/Globulin Ratio 1.1 % 05/03/18 16:27 Lipase 22 units/L (13-60) 05/03/18 16:27 Urine Color Yellow (Yellow) 05/03/18 17:41 Urine Turbidity Clear (Clear) 05/03/18 17:41 Urine pH 7.0 (5.0-7.0) 05/03/18 17:41 Ur Specific [place] 1.011 (1.003-1.030) 05/03/18 17:41 Urine Protein >500 mg/dL (Negative) 05/03/18 17:41 Urine Glucose (UA) 150 mg/dL (Negative) 05/03/18 17:41 Urine Ketones Tr mg/dL (Negative) 05/03/18 17:41 Urine Blood Neg (Negative) 05/03/18 17:41 Urine Nitrite Neg (Negative) 05/03/18 17:41 Urine Bilirubin Neg (Negative) 05/03/18 17:41 Urine Urobilinogen < 2.0 mg/dL (<2.0) 05/03/18 17:41 Ur Leukocyte Esterase Neg (Negative) 05/03/18 17:41 Urine WBC (Auto) 1.0 /HPF (0.0-6.0) 05/03/18 17:41 Urine RBC (Auto) 2.0 /HPF (0.0-6.0) 05/03/18 17:41 U Epithel Cells (Auto) 1.0 /HPF (0-13.0) 05/03/18 17:41 Urine Mucus Few /HPF 05/03/18 17:41 Nutrition/Malnutrition Assess - Dietary Evaluation Nutrition/Malnutrition Findings: Nutrition Notes Start: 05/04/18 12:14 Freq: Status: Active Protocol: Document 05/04/18 12:14 OH (Rec: 05/04/18 12:28 OH [id number]) Nutrition Notes Need for Assessment generated from: MD Order Initial or Follow up Assessment Current Diagnosis Diabetes Other Pertinent Diagnosis gastroparesis: n/v; obesity Current Diet NPO Labs/Tests k+ 3.2 GLU 209 ALB 4.0 NA 145 Pertinent Medications Humulin 70/30 Height 5 ft 6 in Weight 91.172 kg [place] Body Weight (kg) 59.09 BMI 32.4 Intake Prior to Admission Poor Weight Status Obese Subjective/Other Information MD consult for malnutrition screen. Pt. reports she has gastroparesis and is unable to keep anything down. Pt. states she has been following the diabetic diet but can only consume broth, jello, and applesauce. Currently pt NPO. Percent of energy/protein needs met: 0/0% Burn Absent Trauma Absent GI Symptoms Nausea Vomiting Current % PO Negligible #1 Nutrition Diagnosis Inadequate oral intake Etiology Uncontrolled DM/gastroparesis As Evidenced by Signs and Symptoms n/v; NPO Is patient on ventilator? No Is Patient Ambulatory and/or Out of Bed No REE-([facility]-confined to bed) 1908.104 Calculation Used for Recommendations [facility] Additional Notes FLUID: 1 mL/kcal PROTEIN: 1-1.4 G/KG/IBW (59-83 g/day) Nutrition Intervention Change Diet Order: Cont NPO and advance per MD Goal #1 Monitor for diet advancement Anticipated Discharge Needs: dm education Follow-Up By: 05/06/18 Additional Comments f/u: diet advancement; wt; need for ONS; dm education - Attestation Statement I have reviewed and agreed w/ Malnutrition eval & tx plan: Yes
[2018-05-05] MEDS: ZESTRIL PO SCH ×2 (16:59→22:52)
[2018-05-05] MEDS: ATIVAN PO SCH ×2 (16:59→22:53)
[2018-05-05] MEDS: PROTONIX PO SCH (17:00)
[2018-05-05] MEDS: ZOFRAN IV PRN ×2 (17:15→22:49)
[2018-05-05] MEDS: SODIUM CHLORIDE FLUSH SYRINGE 10 ML IV SCH ×2 (18:40→22:53)
[2018-05-06] MEDS: REGLAN IV PRN (05:14)
[2018-05-06] MEDS ORDERED: ANCEF/STERILE WATER 2 GM/20 ML IV NR (08:17)
[2018-05-06] MEDS ORDERED: PEPCID IV NR (08:24)
[2018-05-06] MEDS ORDERED: PEPCID IV ONE (08:32)
[2018-05-06] MEDS: ZOFRAN IV PRN ×2 (08:40→21:24)
--- NOTE | 2018-05-06 09:14 | Anesthesia Consultation ---
Anesthesia Consult and Med Hx Date of service: 05/06/18 - Airway Anesthetic Teeth Evaluation: Good ROM Head & Neck: Adequate Mental/Hyoid Distance: Adequate Mallampati Class: Class III Intubation Access Assessment: Probably Good - Pulmonary Exam CTA: Yes - Cardiac Exam Cardiac Exam: RRR - Pre-Operative Health Status ASA Pre-Surgery Classification: ASA3 Proposed Anesthetic Plan: General - Pulmonary Hx Smoking: No Hx Asthma: No Hx Respiratory Symptoms: No - Cardiovascular System Hx Hypertension: Yes Hx Heart Attack/AMI: No Hx Percutaneous Transluminal Coronary Angioplasty (PTCA): No Hx Cardia Arrhythmia: No - Central Nervous System Hx Seizures: No CVA: No (TIA 2000) Hx Psychiatric Problems: No - Gastrointestinal Hx Ulcer: Yes - Endocrine Hx Renal Disease: Yes (ARIEL (improved)) Hx Liver Disease: No Hx Insulin Dependent Diabetes: Yes (complicated by gastroparesis) Hx Thyroid Disease: No - Hematic Hx Anemia: Yes - Other Systems Hx Obesity: Yes - Additional Comments Anesthesia Medical History Comments: Presented with intractable nasuea/vomiting now scheduled for robotic cholecystectomy. Labs significant for hypokalemia on 05/04/18. Will recheck K+ preop and replete prn. Plan RSI given ongoing nausea/vomiting.
--- NOTE | 2018-05-06 09:15 | Anesthesia Day of Surgery ---
Anesthesia Day of Surgery - Day of Surgery Patient Examined: Yes Patient H&P Reviewed: Yes Patient is NPO: Yes
[2018-05-06] MEDS ORDERED: DIPRIVAN 10 MG/ML IV ONE (10:54)
[2018-05-06] MEDS ORDERED: XYLOCAINE 1% 20 mL ONE (10:54)
[2018-05-06] MEDS ORDERED: MARCAINE 0.25% INFILTRATI ONE ×3 (10:54→12:23)
[2018-05-06] MEDS ORDERED: ZOFRAN ONE (10:55)
[2018-05-06] MEDS ORDERED: ZEMURON IV ONE (10:55)
[2018-05-06] MEDS ORDERED: XYLOCAINE CARDIAC IV ONE (10:55)
[2018-05-06] MEDS: NACL 0.9% 1000 ML 1,000 ML IV SCH ×2 (10:56→15:23)
[2018-05-06] MEDS ORDERED: DILAUDID ONE (10:56)
[2018-05-06] MEDS ORDERED: DECADRON ONE (10:58)
[2018-05-06] MEDS ORDERED: QUELICIN ONE (10:58)
--- NOTE | 2018-05-06 11:45 | Event Note ---
Date: 05/06/18 Patient off plan for cholecystectomy.
[2018-05-06] MEDS: HumuLIN R SUB-Q SCH ×4 (11:56→22:34)
[2018-05-06] MEDS: LIBRAX 5-2.5 MG PO SCH ×4 (11:56→22:24)
[2018-05-06] MEDS: SODIUM CHLORIDE FLUSH SYRINGE 10 ML IV SCH ×2 (11:56→22:25)
[2018-05-06] MEDS: PROTONIX PO SCH (11:56)
[2018-05-06] MEDS: ATIVAN PO SCH ×2 (11:56→22:25)
[2018-05-06] MEDS: ZESTRIL PO SCH ×2 (11:57→22:24)
[2018-05-06] MEDS ORDERED: XYLOCAINE 2% INFILTRATI ONE ×2 (12:23)
[2018-05-06] MEDS ORDERED: K-DUR PO NR (12:30)
[2018-05-06] MEDS ORDERED: ROBINUL ONE (12:59)
[2018-05-06] MEDS ORDERED: BLOXIVERZ ONE (13:00)
[2018-05-06] MEDS ORDERED: NORMODYNE IV ONE (13:05)
[2018-05-06] MEDS: DILAUDID IV PRN ×2 (13:30→13:50)
[2018-05-06] MEDS ORDERED: LOPRESSOR IV ONE ×2 (13:46→13:50)
[2018-05-06] MEDS ORDERED: LOPRESSOR IV PRN (13:51)
--- NOTE | 2018-05-06 13:54 | Post Anesthesia Evaluation ---
- Post Anesthesia Evaluation Patient Participated: Yes Airway Patent: Yes Stable Respiratory Function: Yes Temp > 96.8F: Yes Pain Manageable: Yes Adequeate Hydration: Yes Anesthesia Complications: No
--- NOTE | 2018-05-06 14:33 | Post Operative Note ---
Date of procedure: 05/06/18 Pre-op diagnosis: cholelithiasis, intractable nausea/vomiting Post-op diagnosis: same Findings: gallbladder with adhesions to omentum Procedure: laparoscopic cholecystectomy Anesthesia: GETA, local Surgeon: ARIE FRANCES Estimated blood loss: minimal Pathology: list (gallbladder) Specimen disposition: to lab Condition: stable Disposition: PACU
--- NOTE | 2018-05-06 14:59 | Progress Note ---
Assessment and Plan Assessment and plan: Pt is a 43 year old female with PMHx of DM type 2, gastroperisis who returns to the ER for c/o intractable n/v that never releived since the last admission. Pt was seen previously in the ER with the same complaints, she states that she was visiting from [place] since last visit and she is stuck here in [place] because of her illness. Per documentation the patient has had 16 admissions since august although tells me her diagnosis was November last year. Per patient she ran out of medications to relieved her symptoms. Pt denies headache, denies dizziness, denies diarrhea, denies fever, denies chills. Pt was initially seen and treated in the ER and admitted for further evaluation with GI. GI recommended May need to consider Marinol. Discussed possible J-tube for volume and nutritional support if has ongoing admissions. Also will need to exclude gallbladder disease. 1. Intractable n/v 2. Recurrent Gastroparesis 3. Cholelithasis 4. Uncontrol DM type 2, ?Diabetic Gastropathy 5. Obesity 6. Hypokalemia 7. HYPERTENSION Plan: Continue with supportive care IVF for hydration s/p LAP KUNAL. EGD and GES in [place] 08/2017 for similar symptoms revealed a non-bleeding ulcer and gastroparesis per pt report (record unavailable) Continue antiemetic with Zofran and reglan EGD shows mild erosion in distal 2cm with Z-line at 42 cm morphine PRN for pain Consult GI for evaluation Glycemic management with insulin per Sliding scale Further plan per hospital course O -continue PPI, antiemetics, and supportive care -avoid narcotics -avoid NSAIDs -optimize glycemic control (Blood glucose 280 upon admission) -electrolyte management per primary team -will follow History Interval history: Patient seen and examined, returned from OR, still drowsy. Hospitalist Physical - Physical exam Narrative exam: General appearance: Present: no acute distress, mild distress, well-nourished - EENT Eyes: Present: PERRL, EOM intact ENT: hearing intact, clear oral mucosa, dentition normal - Neck Neck: Present: supple, normal ROM - Respiratory Respiratory effort: normal - Cardiovascular Rhythm: regular Heart Sounds: Present: S1 & S2, systolic murmur - Extremities Extremities: no ischemia, pulses intact, pulses symmetrical, No edema, Full ROM Peripheral Pulses: within normal limits - Abdominal General gastrointestinal: soft, tender, normal bowel sounds - Integumentary Integumentary: Present: clear, warm, dry - Psychiatric Psychiatric: appropriate mood/affect, intact judgment & insight, cooperative - Neurologic Neurologic: CNII-XII intact, moves all extremities - Constitutional Vitals: Temp Pulse Resp BP Pulse Ox 98.5 F 89 16 177/90 100 05/06/18 14:00 05/06/18 14:00 05/06/18 14:00 05/06/18 14:00 05/06/18 14:00 General appearance: Present: no acute distress, mild distress, well-nourished Results - Labs CBC & Chem 7: 05/04/18 05:16 05/04/18 05:16 Labs: Laboratory Last Values WBC 8.9 K/mm3 (4.5-11.0) 05/04/18 05:16 RBC 3.99 M/mm3 (3.65-5.03) 05/04/18 05:16 Hgb 11.0 gm/dl (10.1-14.3) 05/04/18 05:16 POC Hgb 11.2 (12-17) L 05/06/18 09:29 Hct 32.8 % (30.3-42.9) 05/04/18 05:16 POC Hct 33 (38-51) L 05/06/18 09:29 MCV 82 fl (79-97) 05/04/18 05:16 MCH 28 pg (28-32) 05/04/18 05:16 MCHC 34 % (30-34) 05/04/18 05:16 RDW 14.1 % (13.2-15.2) 05/04/18 05:16 Plt Count 368 K/mm3 (140-440) 05/04/18 05:16 Lymph % (Auto) 16.8 % (13.4-35.0) 05/04/18 05:16 [place] % (Auto) 7.0 % (0.0-7.3) 05/04/18 05:16 Eos % (Auto) 0.1 % (0.0-4.3) 05/04/18 05:16 Baso % (Auto) 0.4 % (0.0-1.8) 05/04/18 05:16 Lymph # 1.5 K/mm3 (1.2-5.4) 05/04/18 05:16 [place] # 0.6 K/mm3 (0.0-0.8) 05/04/18 05:16 Eos # 0.0 K/mm3 (0.0-0.4) 05/04/18 05:16 Baso # 0.0 K/mm3 (0.0-0.1) 05/04/18 05:16 Seg Neutrophils % 75.7 % (40.0-70.0) H 05/04/18 05:16 Seg Neutrophils # 6.7 K/mm3 (1.8-7.7) 05/04/18 05:16 POC Sodium 144 mmol/L (138-146) 05/06/18 09:29 POC Potassium 3.0 (3.5-4.9) L 05/06/18 09:29 POC Chloride 101 (98-109) 05/06/18 09:29 Sodium 145 mmol/L (137-145) 05/04/18 05:16 Potassium 3.2 mmol/L (3.6-5.0) L 05/04/18 05:16 Chloride 105.3 mmol/L (98-107) 05/04/18 05:16 Carbon Dioxide 24 mmol/L (22-30) 05/04/18 05:16 Anion Gap 19 mmol/L 05/04/18 05:16 POC BUN 13 mg/dl (8-26) 05/06/18 09:29 BUN 11 mg/dL (7-17) 05/04/18 05:16 Creatinine 1.2 mg/dL (0.7-1.2) 05/04/18 05:16 Estimated GFR 60 ml/min 05/04/18 05:16 BUN/Creatinine Ratio 9 % 05/04/18 05:16 Glucose 217 mg/dL (65-100) H 05/04/18 05:16 POC Glucose 181 (70-105) H 05/06/18 13:24 Calcium 8.5 mg/dL (8.4-10.2) 05/04/18 05:16 Total Bilirubin 0.40 mg/dL (0.1-1.2) 05/03/18 16:27 AST 7 units/L (5-40) 05/03/18 16:27 ALT < 5 units/L (7-56) L 05/03/18 16:27 Alkaline Phosphatase 92 units/L (35-129) 05/03/18 16:27 Total Protein 7.5 g/dL (6.3-8.2) 05/03/18 16:27 Albumin 4.0 g/dL (3.9-5) 05/03/18 16:27 Albumin/Globulin Ratio 1.1 % 05/03/18 16:27 Lipase 22 units/L (13-60) 05/03/18 16:27 Urine Color Yellow (Yellow) 05/03/18 17:41 Urine Turbidity Clear (Clear) 05/03/18 17:41 Urine pH 7.0 (5.0-7.0) 05/03/18 17:41 Ur Specific [place] 1.011 (1.003-1.030) 05/03/18 17:41 Urine Protein >500 mg/dL (Negative) 05/03/18 17:41 Urine Glucose (UA) 150 mg/dL (Negative) 05/03/18 17:41 Urine Ketones Tr mg/dL (Negative) 05/03/18 17:41 Urine Blood Neg (Negative) 05/03/18 17:41 Urine Nitrite Neg (Negative) 05/03/18 17:41 Urine Bilirubin Neg (Negative) 05/03/18 17:41 Urine Urobilinogen < 2.0 mg/dL (<2.0) 05/03/18 17:41 Ur Leukocyte Esterase Neg (Negative) 05/03/18 17:41 Urine WBC (Auto) 1.0 /HPF (0.0-6.0) 05/03/18 17:41 Urine RBC (Auto) 2.0 /HPF (0.0-6.0) 05/03/18 17:41 U Epithel Cells (Auto) 1.0 /HPF (0-13.0) 05/03/18 17:41 Urine Mucus Few /HPF 05/03/18 17:41 Nutrition/Malnutrition Assess - Dietary Evaluation Nutrition/Malnutrition Findings: Nutrition Notes Start: 05/04/18 12:14 Freq: Status: Active Protocol: Document 05/06/18 13:40 OH (Rec: 05/06/18 13:43 OH [id number]) Nutrition Notes Initial or Follow up Brief Note Other Pertinent Diagnosis s/p cholecystectomy; gastroparesis; n/v; obesity Current Diet NPO Labs/Tests GLU 181 Pertinent Medications Reviewed Height 5 ft 6 in Weight 91.172 kg [place] Body Weight (kg) 59.09 BMI 32.4 Subjective/Other Information Pt. had upper GI completed and cholecystectomy completed today 05/06/18. Pt. not in room at this time. Percent of energy/protein needs met: 0/0% Nutrition Intervention Follow-Up By: 05/07/18
[2018-05-06] MEDS: APRESOLINE IV PRN (15:24)
[2018-05-06] MEDS: MORPHINE IV PRN (18:47)
[2018-05-07] MEDS: ZOFRAN IV PRN ×2 (03:51→08:58)
[2018-05-07] MEDS: MORPHINE IV PRN ×2 (03:51→17:16)
[2018-05-07] MEDS: NACL 0.9% 1000 ML 1,000 ML IV SCH (03:52)
[2018-05-07 06:37] LABS: Hematocrit 29.7 % (30.3-42.9); Hemoglobin 10.1 gm/dl (10.1-14.3); Mean Corpuscular HGB Conc 34 % (30-34); Mean Corpuscular Volume 83 fl (79-97); Platelet Count 289 K/mm3 (140-440); Red Blood Count 3.59 M/mm3 (3.65-5.03); Red Cell Distribution Width 13.8 % (13.2-15.2)
[2018-05-07 06:56] LABS: BUN/Creatinine Ratio 9; Blood Urea Nitrogen 9 mg/dL (7-17); Calcium 7.9 mg/dL (8.4-10.2); Hemolysis Index 1
[2018-05-07] MEDS: PROTONIX PO SCH (09:09)
[2018-05-07] MEDS: ATIVAN PO SCH ×2 (09:10→21:21)
[2018-05-07] MEDS: LIBRAX 5-2.5 MG PO SCH ×4 (09:12→21:26)
[2018-05-07] MEDS: ZESTRIL PO SCH ×2 (09:12→21:25)
[2018-05-07] MEDS: HumuLIN R SUB-Q SCH ×4 (09:16→21:26)
--- NOTE | 2018-05-07 09:58 | Gastroenterology Progress Note ---
<MERRILL ZAMAN - Last Filed: 05/07/18 10:02> Assessment and Plan 1.intractable N/V 2.DM uncontrolled 3.H/o gastroparesis 4.obesity -afebrile -WBC-WNL -LFTs and lipase WNL -abd CT 04/07/18 unremarkable -EGD and GES in [place] 08/2017 for similar symptoms revealed a non-bleeding ulcer and gastroparesis per pt report (record unavailable) -abd U/S showed gallstones with gallbladder sludge and trace pericholecystic fluid (acute cholecystitis?) -etiology-likely combination of gastroparesis and GB disease -s/p EGD 05/05/18 that showed mild erosive esophagitis and emetogenic gastritis -s/p lap raudel yesterday 05/06/18 -clinically patient is stable. Reports N/V starting to improve and mild abd soreness. No active signs of bleeding. -continue PPI, antiemetics, and supportive care -advance diet as tolerated -limit narcotics -avoid NSAIDs -optimize glycemic control -further management per surgery -once tolerating PO, okay to be d/c per GI standpoint -no further GI recommendations at this time -will sign off, please call if needed Subjective Date of service: 05/07/18 Principal diagnosis: intractable vomiting, gastroparesis Interval history: Patient resting in bed w/o acute distress. Reports some continued N/V but states it is improving compared to previous and abd soreness s/p cholecystectomy yesterday. Objective - Constitutional Vitals: Temp Pulse Resp BP Pulse Ox 98.7 F 103 H 18 171/93 98 05/07/18 04:57 05/07/18 09:12 05/07/18 04:57 05/07/18 09:12 05/07/18 04:57 General appearance: no acute distress - Respiratory Respiratory: bilateral: CTA - Cardiovascular Rhythm: regular Heart Sounds: Present: S1 & S2 - Gastrointestinal General gastrointestinal: Present: soft, tender (slight RUQ TTP), non-distended, normal bowel sounds - Neurologic Neurological: alert and oriented x3 - Labs CBC & Chem 7: 05/07/18 05:52 05/07/18 05:52 Labs: Laboratory Results - last 24 hr 05/06/18 05/06/18 05/06/18 13:24 17:26 22:33 WBC RBC Hgb Hct MCV MCH MCHC RDW Plt Count Sodium Potassium Chloride Carbon Dioxide Anion Gap BUN Creatinine Estimated GFR BUN/Creatinine Ratio Glucose POC Glucose 181 H 178 H 190 H Calcium 05/07/18 05/07/18 05/07/18 05:52 05:52 08:01 WBC 9.0 RBC 3.59 L Hgb 10.1 Hct 29.7 L MCV 83 MCH 28 MCHC 34 RDW 13.8 Plt Count 289 Sodium 142 Potassium 3.1 L Chloride 105.4 Carbon Dioxide 24 Anion Gap 16 BUN 9 Creatinine 1.0 Estimated GFR > 60 BUN/Creatinine Ratio 9 Glucose 181 H POC Glucose 180 H Calcium 7.9 L <MEHUL PAZ R - Last Filed: 05/07/18 15:59> Assessment and Plan Pt seen. Feels better, except post-op pain and mild nausea. Matty clears. 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 Hopefully, she will do better. Will sign off. Thanks. Objective - Constitutional Vitals: Temp Pulse Resp BP Pulse Ox 99.1 F 96 H 18 163/79 97 05/07/18 12:00 05/07/18 12:00 05/07/18 12:00 05/07/18 12:00 05/07/18 10:00 - Labs CBC & Chem 7: 05/07/18 05:52 05/07/18 05:52 Labs: Laboratory Results - last 24 hr 05/06/18 05/06/18 05/07/18 17:26 22:33 05:52 WBC 9.0 RBC 3.59 L Hgb 10.1 Hct 29.7 L MCV 83 MCH 28 MCHC 34 RDW 13.8 Plt Count 289 Sodium Potassium Chloride Carbon Dioxide Anion Gap BUN Creatinine Estimated GFR BUN/Creatinine Ratio Glucose POC Glucose 178 H 190 H Calcium 05/07/18 05/07/18 05/07/18 05:52 08:01 11:35 WBC RBC Hgb Hct MCV MCH MCHC RDW Plt Count Sodium 142 Potassium 3.1 L Chloride 105.4 Carbon Dioxide 24 Anion Gap 16 BUN 9 Creatinine 1.0 Estimated GFR > 60 BUN/Creatinine Ratio 9 Glucose 181 H POC Glucose 180 H 162 H Calcium 7.9 L
[2018-05-07] MEDS: TRANSDERM-SCOP TD SCH (10:08)
[2018-05-07] MEDS: SODIUM CHLORIDE FLUSH SYRINGE 10 ML IV SCH ×2 (10:08→21:26)
[2018-05-07] MEDS ORDERED: K-DUR PO ONE (12:30)
--- NOTE | 2018-05-07 13:35 | Progress Note ---
Assessment and Plan 43 yo F s/p laparoscopic cholecystectomy, POD 1 with cholelithiasis, gastroparesis, DM 1. PRN pain control 2. prn nausea control 3. adv diet as tolerated 4. will follow up with patient in office in 2 weeks. Printed dc paperwork left on chart. Will s/o. D/W Dr. Barney Thank you, please call with questions Subjective Date of service: 05/07/18 Narrative: Pt seen and examined. c/o incisional pain. No f/c. + nausea and vomiting x1 of clear liquid. Objective Vital Signs - 12hr 05/07/18 05/07/18 05/07/18 03:51 04:21 04:57 Temperature 98.7 F Pulse Rate 90 Respiratory 18 18 18 Rate Blood Pressure 145/71 Blood Pressure [Left] O2 Sat by Pulse 98 Oximetry 05/07/18 05/07/18 09:12 12:00 Temperature 99.1 F Pulse Rate 103 H 96 H Respiratory 18 Rate Blood Pressure 171/93 Blood Pressure 163/79 [Left] O2 Sat by Pulse Oximetry - General physical appearance Narrative Exam: Gen: AAOx3. mild distress due to abdominal pain CV: s1, S2+ resp: even and unlabored Abd; soft, ND, + arely-incisional TTP. no r/r/g. Incisions c/d/i Ext: no c/c/e - Labs 05/07/18 05:52 05/07/18 05:52 Diabetes panel 05/07/18 Range/Units 05:52 Sodium 142 (137-145) mmol/L Potassium 3.1 L (3.6-5.0) mmol/L Chloride 105.4 (98-107) mmol/L Carbon Dioxide 24 (22-30) mmol/L BUN 9 (7-17) mg/dL Creatinine 1.0 (0.7-1.2) mg/dL Glucose 181 H (65-100) mg/dL Calcium 7.9 L (8.4-10.2) mg/dL Calcium panel 05/07/18 Range/Units 05:52 Calcium 7.9 L (8.4-10.2) mg/dL Pituitary panel 05/07/18 Range/Units 05:52 Sodium 142 (137-145) mmol/L Potassium 3.1 L (3.6-5.0) mmol/L Chloride 105.4 (98-107) mmol/L Carbon Dioxide 24 (22-30) mmol/L BUN 9 (7-17) mg/dL Creatinine 1.0 (0.7-1.2) mg/dL Glucose 181 H (65-100) mg/dL Calcium 7.9 L (8.4-10.2) mg/dL Adrenal panel 05/07/18 Range/Units 05:52 Sodium 142 (137-145) mmol/L Potassium 3.1 L (3.6-5.0) mmol/L Chloride 105.4 (98-107) mmol/L Carbon Dioxide 24 (22-30) mmol/L BUN 9 (7-17) mg/dL Creatinine 1.0 (0.7-1.2) mg/dL Glucose 181 H (65-100) mg/dL Calcium 7.9 L (8.4-10.2) mg/dL
--- NOTE | 2018-05-07 16:02 | Progress Note ---
Assessment and Plan Assessment and plan: Pt is a 43 year old female with PMHx of DM type 2, gastroperisis who returns to the ER for c/o intractable n/v that never releived since the last admission. Pt was seen previously in the ER with the same complaints, she states that she was visiting from [place] since last visit and she is stuck here in [place] because of her illness. Per documentation the patient has had 16 admissions since august although tells me her diagnosis was November last year. Per patient she ran out of medications to relieved her symptoms. Pt denies headache, denies dizziness, denies diarrhea, denies fever, denies chills. Pt was initially seen and treated in the ER and admitted for further evaluation with GI. GI recommended May need to consider Marinol. Discussed possible J-tube for volume and nutritional support if has ongoing admissions. Also will need to exclude gallbladder disease. Patient had a successful Lap raudel, tolerating some clear liquids today. Can discharge in am if stable 1. Intractable n/v 2. Recurrent Gastroparesis 3. Cholelithasis 4. Uncontrol DM type 2, ?Diabetic Gastropathy 5. Obesity 6. Hypokalemia 7. HYPERTENSION Plan: Continue with supportive care IVF for hydration s/p LAP RAUDEL. EGD and GES in [place] 08/2017 for similar symptoms revealed a non-bleeding ulcer and gastroparesis per pt report (record unavailable) Continue antiemetic with Zofran and reglan EGD shows mild erosion in distal 2cm with Z-line at 42 cm morphine PRN for pain Consult GI for evaluation Glycemic management with insulin per Sliding scale Further plan per hospital course -continue PPI, antiemetics, and supportive care -avoid narcotics -avoid NSAIDs -optimize glycemic control (Blood glucose 280 upon admission) -electrolyte management per primary team Discharge in am if tolerating full liquids Follow with GI and surgery outpatient. History Interval history: Patient seen and examined, pt is status post laparoscopic cholecystectomy doing well tolerated some clear liquids normal bowel movement or gas yet. Hospitalist Physical - Physical exam Narrative exam: General appearance: Present: no acute distress, mild distress, well-nourished - EENT Eyes: Present: PERRL, EOM intact ENT: hearing intact, clear oral mucosa, dentition normal - Neck Neck: Present: supple, normal ROM - Respiratory Respiratory effort: normal - Cardiovascular Rhythm: regular Heart Sounds: Present: S1 & S2, systolic murmur - Extremities Extremities: no ischemia, pulses intact, pulses symmetrical, No edema, Full ROM Peripheral Pulses: within normal limits - Abdominal General gastrointestinal: soft, tender at surgical site, normal bowel sounds - Integumentary Integumentary: Present: clear, warm, dry - Psychiatric Psychiatric: appropriate mood/affect, intact judgment & insight, cooperative - Neurologic Neurologic: CNII-XII intact, moves all extremities - Constitutional Vitals: Temp Pulse Resp BP Pulse Ox 99.1 F 96 H 18 163/79 97 05/07/18 12:00 05/07/18 12:00 05/07/18 12:00 05/07/18 12:00 05/07/18 10:00 General appearance: Present: no acute distress, mild distress, well-nourished Results - Labs CBC & Chem 7: 05/07/18 05:52 05/07/18 05:52 Labs: Laboratory Last Values WBC 9.0 K/mm3 (4.5-11.0) 05/07/18 05:52 RBC 3.59 M/mm3 (3.65-5.03) L 05/07/18 05:52 Hgb 10.1 gm/dl (10.1-14.3) 05/07/18 05:52 POC Hgb 11.2 (12-17) L 05/06/18 09:29 Hct 29.7 % (30.3-42.9) L 05/07/18 05:52 POC Hct 33 (38-51) L 05/06/18 09:29 MCV 83 fl (79-97) 05/07/18 05:52 MCH 28 pg (28-32) 05/07/18 05:52 MCHC 34 % (30-34) 05/07/18 05:52 RDW 13.8 % (13.2-15.2) 05/07/18 05:52 Plt Count 289 K/mm3 (140-440) 05/07/18 05:52 Lymph % (Auto) 16.8 % (13.4-35.0) 05/04/18 05:16 [place] % (Auto) 7.0 % (0.0-7.3) 05/04/18 05:16 Eos % (Auto) 0.1 % (0.0-4.3) 05/04/18 05:16 Baso % (Auto) 0.4 % (0.0-1.8) 05/04/18 05:16 Lymph # 1.5 K/mm3 (1.2-5.4) 05/04/18 05:16 [place] # 0.6 K/mm3 (0.0-0.8) 05/04/18 05:16 Eos # 0.0 K/mm3 (0.0-0.4) 05/04/18 05:16 Baso # 0.0 K/mm3 (0.0-0.1) 05/04/18 05:16 Seg Neutrophils % 75.7 % (40.0-70.0) H 05/04/18 05:16 Seg Neutrophils # 6.7 K/mm3 (1.8-7.7) 05/04/18 05:16 POC Sodium 144 mmol/L (138-146) 05/06/18 09:29 POC Potassium 3.0 (3.5-4.9) L 05/06/18 09:29 POC Chloride 101 (98-109) 05/06/18 09:29 Sodium 142 mmol/L (137-145) 05/07/18 05:52 Potassium 3.1 mmol/L (3.6-5.0) L 05/07/18 05:52 Chloride 105.4 mmol/L (98-107) 05/07/18 05:52 Carbon Dioxide 24 mmol/L (22-30) 05/07/18 05:52 Anion Gap 16 mmol/L 05/07/18 05:52 POC BUN 13 mg/dl (8-26) 05/06/18 09:29 BUN 9 mg/dL (7-17) 05/07/18 05:52 Creatinine 1.0 mg/dL (0.7-1.2) 05/07/18 05:52 Estimated GFR > 60 ml/min 05/07/18 05:52 BUN/Creatinine Ratio 9 % 05/07/18 05:52 Glucose 181 mg/dL (65-100) H 05/07/18 05:52 POC Glucose 162 (70-105) H 05/07/18 11:35 Calcium 7.9 mg/dL (8.4-10.2) L 05/07/18 05:52 Total Bilirubin 0.40 mg/dL (0.1-1.2) 05/03/18 16:27 AST 7 units/L (5-40) 05/03/18 16:27 ALT < 5 units/L (7-56) L 05/03/18 16:27 Alkaline Phosphatase 92 units/L (35-129) 05/03/18 16:27 Total Protein 7.5 g/dL (6.3-8.2) 05/03/18 16:27 Albumin 4.0 g/dL (3.9-5) 05/03/18 16:27 Albumin/Globulin Ratio 1.1 % 05/03/18 16:27 Lipase 22 units/L (13-60) 05/03/18 16:27 Urine Color Yellow (Yellow) 05/03/18 17:41 Urine Turbidity Clear (Clear) 05/03/18 17:41 Urine pH 7.0 (5.0-7.0) 05/03/18 17:41 Ur Specific [place] 1.011 (1.003-1.030) 05/03/18 17:41 Urine Protein >500 mg/dL (Negative) 05/03/18 17:41 Urine Glucose (UA) 150 mg/dL (Negative) 05/03/18 17:41 Urine Ketones Tr mg/dL (Negative) 05/03/18 17:41 Urine Blood Neg (Negative) 05/03/18 17:41 Urine Nitrite Neg (Negative) 05/03/18 17:41 Urine Bilirubin Neg (Negative) 05/03/18 17:41 Urine Urobilinogen < 2.0 mg/dL (<2.0) 05/03/18 17:41 Ur Leukocyte Esterase Neg (Negative) 05/03/18 17:41 Urine WBC (Auto) 1.0 /HPF (0.0-6.0) 05/03/18 17:41 Urine RBC (Auto) 2.0 /HPF (0.0-6.0) 05/03/18 17:41 U Epithel Cells (Auto) 1.0 /HPF (0-13.0) 05/03/18 17:41 Urine Mucus Few /HPF 05/03/18 17:41 Nutrition/Malnutrition Assess - Dietary Evaluation Nutrition/Malnutrition Findings: Nutrition Notes Start: 05/04/18 12:14 Freq: Status: Active Protocol: Document 05/07/18 12:26 (Rec: 05/07/18 13:45 [email or web address]) Co-Sign 05/07/18 12:26 OL Nutrition Notes Initial or Follow up Reassessment Other Pertinent Diagnosis s/p cholecystectomy; gastroparesis; n/v; obesity Current Diet GI soft diet Labs/Tests K: 3.1 Pertinent Medications Reviewed Height 5 ft 6 in Weight 96.2 kg [place] Body Weight (kg) 59.09 BMI 34.2 Weight Status Obese Subjective/Other Information Pt f/u for diet advancement, wt., ONS need, and DM education. Pt stated she is recieving trays, but not eating them due to N/V. PT. stated she still only wants fluids. Food preferences noted . Pt agreed to try Ensure clear. Pt. stated she has had DM for 20 years and that her most recent A1C was 8. Pt did not care for DM education at time of visit because she was not feeling well. Blade Operator left handout on table with number for pt to call RD when she is feeling better. Percent of energy/protein needs met: <25%/25% Burn Absent Trauma Absent GI Symptoms Nausea Vomiting Current % PO Negligible #1 Nutrition Diagnosis Inadequate oral intake As Evidenced by Signs and Symptoms N/v, consuming only liquids Diagnosis Progress(for reassessment Continues documentation) Is patient on ventilator? No Is Patient Ambulatory and/or Out of Bed No REE-([facility]-confined to bed) 1969.380 Calculation Used for Recommendations [facility] Additional Notes Adj BW = 78kg PRO: 78-94g (1-1.2 g/kg AdjBW) Fluid: 1 ml/kcal Nutrition Intervention Change Diet Order: Continue GI soft Add Supplement/Snack (indicate name/kcal Ensure Clear daily /protein ) Provides kCal: 240 Provides Protein (gm) 8 Teaching Recipient Patient Learning Readiness Poor Teaching Methods Handout Response to Teaching Refuses to learn Education Handouts Provided Carb Counting for Diabetics Barriers to Learning Physical RD phone number provided Yes Patient aware of follow up options Yes Goal #1 Meet at least 80% of energy and protein intakes via PO and ONS intakes Goal #2 Weight maintenance Follow-Up By: 05/11/18 Additional Comments F/u: PO intakes, ONS tolerance , et. status
[2018-05-07] MEDS: KCL 10MEQ/100ML 10 MEQ/100 ML BAG IV SCH ×4 (16:34→22:31)
[2018-05-07] MEDS: REGLAN IV PRN (17:16)
[2018-05-07] MEDS ORDERED: HALDOL PO ONE (18:19)
[2018-05-08] MEDS: HumuLIN R SUB-Q SCH ×4 (07:30→22:07)
[2018-05-08 07:39] LABS: BUN/Creatinine Ratio 6; Blood Urea Nitrogen 5 mg/dL (7-17); Calcium 8.3 mg/dL (8.4-10.2); Hemolysis Index 6
[2018-05-08] MEDS: LIBRAX 5-2.5 MG PO SCH ×4 (08:32→22:04)
[2018-05-08] MEDS: ZOFRAN IV PRN ×2 (08:37→17:19)
[2018-05-08] MEDS: REGLAN IV PRN ×2 (08:57→15:47)
[2018-05-08] MEDS ORDERED: ZOFRAN IV ONE (09:37)
[2018-05-08] MEDS: KCL 10MEQ/100ML 10 MEQ/100 ML BAG IV SCH ×2 (10:52→13:04)
[2018-05-08] MEDS: ZESTRIL PO SCH ×2 (13:02→21:54)
[2018-05-08] MEDS: SODIUM CHLORIDE FLUSH SYRINGE 10 ML IV SCH (13:03)
[2018-05-08] MEDS: PROTONIX PO SCH (13:03)
[2018-05-08] MEDS: ATIVAN PO SCH ×2 (13:04→21:54)
--- NOTE | 2018-05-08 13:36 | Progress Note ---
Assessment and Plan - Patient Problems (1) Gastroparesis Current Visit: Yes Status: Acute Plan to address problem: Patient's prolonged nausea most likely secondary to gastroparesis initiated by the cholecystitis at first. Patient seems to be turning around rather well. Abdominal pain resolved patient appetite is picked up only remains nauseated. W e'll increase Prandin to every 8 hours scheduled and then will use the Reglan when necessary to see if we can break this initial nausea for scheduled discharge in a.m. (2) Hypokalemia Current Visit: Yes Status: Acute Plan to address problem: We'll replace potassium secondary to nausea and vomiting today. Replace IV (3) Tachycardia Current Visit: Yes Status: Resolved (4) Acute abdominal pain Current Visit: No Status: Acute Plan to address problem: Secondary to acute cholecystitis has resolved after surgery. History Interval history: Patient's main concern now is continued nausea. Pain has resolved. Patient hospital course also complicated by hypokalemia. Hospitalist Physical - Constitutional Vitals: Temp Pulse Resp BP Pulse Ox 98.7 F 96 H 22 152/85 100 05/08/18 11:34 05/08/18 13:02 05/08/18 11:34 05/08/18 13:02 05/08/18 11:34 General appearance: Present: no acute distress, mild distress, well-nourished - EENT Eyes: Present: PERRL, EOM intact ENT: hearing intact, clear oral mucosa, dentition normal - Neck Neck: Present: supple, normal ROM. Absent: enlarged thyroid, masses or JVD, cervical LAD - Respiratory Respiratory: bilateral: CTA - Cardiovascular Rhythm: regular Heart Sounds: Present: S1 & S2 - Extremities Extremities: no ischemia, pulses intact, pulses symmetrical, No edema, normal temperature, Full ROM Peripheral Pulses: within normal limits - Abdominal General gastrointestinal: soft, tender, distended, hypoactive bowel sounds, no rigid, no hepatomegaly, no splenomegaly - Integumentary Integumentary: Present: clear, warm, dry - Psychiatric Psychiatric: appropriate mood/affect, intact judgment & insight, cooperative - Neurologic Neurologic: CNII-XII intact Results - Labs CBC & Chem 7: 05/07/18 05:52 05/08/18 06:31 Labs: Laboratory Last Values WBC 9.0 K/mm3 (4.5-11.0) 05/07/18 05:52 RBC 3.59 M/mm3 (3.65-5.03) L 05/07/18 05:52 Hgb 10.1 gm/dl (10.1-14.3) 05/07/18 05:52 POC Hgb 11.2 (12-17) L 05/06/18 09:29 Hct 29.7 % (30.3-42.9) L 05/07/18 05:52 POC Hct 33 (38-51) L 05/06/18 09:29 MCV 83 fl (79-97) 05/07/18 05:52 MCH 28 pg (28-32) 05/07/18 05:52 MCHC 34 % (30-34) 05/07/18 05:52 RDW 13.8 % (13.2-15.2) 05/07/18 05:52 Plt Count 289 K/mm3 (140-440) 05/07/18 05:52 Lymph % (Auto) 16.8 % (13.4-35.0) 05/04/18 05:16 [place] % (Auto) 7.0 % (0.0-7.3) 05/04/18 05:16 Eos % (Auto) 0.1 % (0.0-4.3) 05/04/18 05:16 Baso % (Auto) 0.4 % (0.0-1.8) 05/04/18 05:16 Lymph # 1.5 K/mm3 (1.2-5.4) 05/04/18 05:16 [place] # 0.6 K/mm3 (0.0-0.8) 05/04/18 05:16 Eos # 0.0 K/mm3 (0.0-0.4) 05/04/18 05:16 Baso # 0.0 K/mm3 (0.0-0.1) 05/04/18 05:16 Seg Neutrophils % 75.7 % (40.0-70.0) H 05/04/18 05:16 Seg Neutrophils # 6.7 K/mm3 (1.8-7.7) 05/04/18 05:16 POC Sodium 144 mmol/L (138-146) 05/06/18 09:29 POC Potassium 3.0 (3.5-4.9) L 05/06/18 09:29 POC Chloride 101 (98-109) 05/06/18 09:29 Sodium 135 mmol/L (137-145) L 05/08/18 06:31 Potassium 2.9 mmol/L (3.6-5.0) L* 05/08/18 06:31 Chloride 99.5 mmol/L (98-107) 05/08/18 06:31 Carbon Dioxide 25 mmol/L (22-30) 05/08/18 06:31 Anion Gap 13 mmol/L 05/08/18 06:31 POC BUN 13 mg/dl (8-26) 05/06/18 09:29 BUN 5 mg/dL (7-17) L 05/08/18 06:31 Creatinine 0.9 mg/dL (0.7-1.2) 05/08/18 06:31 Estimated GFR > 60 ml/min 05/08/18 06:31 BUN/Creatinine Ratio 6 % 05/08/18 06:31 Glucose 180 mg/dL (65-100) H 05/08/18 06:31 POC Glucose 170 (70-105) H 05/08/18 11:39 Calcium 8.3 mg/dL (8.4-10.2) L 05/08/18 06:31 Total Bilirubin 0.40 mg/dL (0.1-1.2) 05/03/18 16:27 AST 7 units/L (5-40) 05/03/18 16:27 ALT < 5 units/L (7-56) L 05/03/18 16:27 Alkaline Phosphatase 92 units/L (35-129) 05/03/18 16:27 Total Protein 7.5 g/dL (6.3-8.2) 05/03/18 16:27 Albumin 4.0 g/dL (3.9-5) 05/03/18 16:27 Albumin/Globulin Ratio 1.1 % 05/03/18 16:27 Lipase 22 units/L (13-60) 05/03/18 16:27 Urine Color Yellow (Yellow) 05/03/18 17:41 Urine Turbidity Clear (Clear) 05/03/18 17:41 Urine pH 7.0 (5.0-7.0) 05/03/18 17:41 Ur Specific [place] 1.011 (1.003-1.030) 05/03/18 17:41 Urine Protein >500 mg/dL (Negative) 05/03/18 17:41 Urine Glucose (UA) 150 mg/dL (Negative) 05/03/18 17:41 Urine Ketones Tr mg/dL (Negative) 05/03/18 17:41 Urine Blood Neg (Negative) 05/03/18 17:41 Urine Nitrite Neg (Negative) 05/03/18 17:41 Urine Bilirubin Neg (Negative) 05/03/18 17:41 Urine Urobilinogen < 2.0 mg/dL (<2.0) 05/03/18 17:41 Ur Leukocyte Esterase Neg (Negative) 05/03/18 17:41 Urine WBC (Auto) 1.0 /HPF (0.0-6.0) 05/03/18 17:41 Urine RBC (Auto) 2.0 /HPF (0.0-6.0) 05/03/18 17:41 U Epithel Cells (Auto) 1.0 /HPF (0-13.0) 05/03/18 17:41 Urine Mucus Few /HPF 05/03/18 17:41 Nutrition/Malnutrition Assess - Dietary Evaluation Nutrition/Malnutrition Findings: Nutrition Notes Start: 05/04/18 12:14 Freq: Status: Active Protocol: Document 05/07/18 12:26 (Rec: 05/07/18 13:45 [email or web address]) Co-Sign 05/07/18 12:26 OL Nutrition Notes Initial or Follow up Reassessment Other Pertinent Diagnosis s/p cholecystectomy; gastroparesis; n/v; obesity Current Diet GI soft diet Labs/Tests K: 3.1 Pertinent Medications Reviewed Height 5 ft 6 in Weight 96.2 kg [place] Body Weight (kg) 59.09 BMI 34.2 Weight Status Obese Subjective/Other Information Pt f/u for diet advancement, wt., ONS need, and DM education. Pt stated she is recieving trays, but not eating them due to N/V. PT. stated she still only wants fluids. Food preferences noted . Pt agreed to try Ensure clear. Pt. stated she has had DM for 20 years and that her most recent A1C was 8. Pt did not care for DM education at time of visit because she was not feeling well. Sebd Teacher left handout on table with number for pt to call RD when she is feeling better. Percent of energy/protein needs met: <25%/25% Burn Absent Trauma Absent GI Symptoms Nausea Vomiting Current % PO Negligible #1 Nutrition Diagnosis Inadequate oral intake As Evidenced by Signs and Symptoms N/v, consuming only liquids Diagnosis Progress(for reassessment Continues documentation) Is patient on ventilator? No Is Patient Ambulatory and/or Out of Bed No REE-([facility]-confined to bed) 1969.380 Calculation Used for Recommendations [facility] Additional Notes Adj BW = 78kg PRO: 78-94g (1-1.2 g/kg AdjBW) Fluid: 1 ml/kcal Nutrition Intervention Change Diet Order: Continue GI soft Add Supplement/Snack (indicate name/kcal [place] daily /protein ) Provides kCal: 240 Provides Protein (gm) 8 Teaching Recipient Patient Learning Readiness Poor Teaching Methods Handout Response to Teaching Refuses to learn Education Handouts Provided Carb Counting for Diabetics Barriers to Learning Physical RD phone number provided Yes Patient aware of follow up options Yes Goal #1 Meet at least 80% of energy and protein intakes via PO and ONS intakes Goal #2 Weight maintenance Follow-Up By: 05/11/18 Additional Comments F/u: PO intakes, ONS tolerance , et. status
[2018-05-09] MEDS: REGLAN IV PRN (05:29)
[2018-05-09 07:39] LABS: BUN/Creatinine Ratio 4; Blood Urea Nitrogen 4 mg/dL (7-17); Hemolysis Index 5
[2018-05-09] MEDS ORDERED: ZOFRAN ODT PO PRN (07:40)
--- NOTE | 2018-05-09 07:40 | Discharge Summary ---
Providers - Providers Date of Admission: 05/03/18 19:45 Date of discharge: 05/09/18 Attending physician: ANGEL MONTOYA 05/03/18 22:05 Consult to Physician [CONS] Routine Comment: Consulting Provider: NILDA WEATHERS Physician Instructions: Reason For Exam: intractable vomiting, recurrent gastroparesis 05/05/18 10:32 Consult to Physician [CONS] Routine Comment: Consulting Provider: ALEJANDRO OROPEZA Physician Instructions: consult surgery Reason For Exam: cholelithiasis, possible acute cholecystitis Primary care physician: ANGEL MONTOYA Hospitalization Condition: Good Disposition: DC-01 TO HOME OR SELFCARE - Discharge Diagnoses (1) Gastroparesis Status: Acute Comment: Patient cystectomy was complicated by gastroparesis which was present prior to admission. This created more aggressive treatment of nausea and vomiting. It is now resolved with increasing Zofran 8 mg. (2) Hypokalemia Status: Acute Comment: Patient Hospital course complicated by hypokalemia. We'll correct potassium and a potassium is within normal limits we'll discharge. (3) Tachycardia Status: Resolved (4) Acute abdominal pain Status: Acute Comment: Secondary to cholelithiasis has resolved now patient just has incisional pain and discomfort status post surgery. Core Measure Documentation - Palliative Care Palliative Care/ Comfort Measures: Not Applicable - Core Measures Any of the following diagnoses?: none Exam - Constitutional Vitals: Temp Pulse Resp BP Pulse Ox 98.0 F 97 H 20 155/94 97 05/09/18 06:24 05/09/18 06:24 05/09/18 06:24 05/09/18 06:24 05/09/18 06:24 General appearance: Present: no acute distress, well-nourished - EENT Eyes: Present: PERRL ENT: hearing intact, clear oral mucosa - Neck Neck: Present: supple, normal ROM - Respiratory Respiratory effort: normal Respiratory: bilateral: CTA - Cardiovascular Heart Sounds: Present: S1 & S2. Absent: rub, click - Extremities Extremities: pulses symmetrical, No edema Peripheral Pulses: within normal limits - Abdominal General gastrointestinal: Present: soft, non-tender, non-distended, normal bowel sounds Female genitourinary: Present: normal - Integumentary Integumentary: Present: clear, warm, dry - Musculoskeletal Musculoskeletal: gait normal, strength equal bilaterally - Psychiatric Psychiatric: appropriate mood/affect, intact judgment & insight - Neurologic Neurologic: CNII-XII intact, moves all extremities Plan Activity: advance as tolerated Weight Bearing Status: Full Weight Bearing Diet: low carbohydrate, thickened liquids Follow up with: ANGEL MONTOYA MD [Primary Care Provider] - 3-5 Days Prescriptions: chlordiazePOXIDE/CLIDINIUM [Librax 5-2.5 mg] 1 cap PO ACHS #30 capsule Enalapril Maleate [Vasotec] 10 mg PO BID #60 tablet Lisinopril [Zestril TAB] 10 mg PO BID #30 tablet Metoclopramide [Reglan TAB] 10 mg PO TID PRN #90 tablet PRN Reason: Nausea Novolin 70-30 100 Unit/ml Vial 35 units SQ QAM 30 Days #2 NovoLIN 70/30 16 units SQ QPM 30 Days #2 Ondansetron [Zofran ODT TAB] 8 mg PO Q8H PRN #30 tab.rapdis PRN Reason: Nausea And Vomiting Pantoprazole [Protonix TAB] 40 mg PO QDAY #30 tablet
[2018-05-09] MEDS: ZOFRAN IV PRN (08:20)
[2018-05-09] MEDS: MORPHINE IV PRN (08:20)
[2018-05-09] MEDS: HumuLIN R SUB-Q SCH ×3 (08:21→17:30)
[2018-05-09] MEDS: NACL 0.9% 1000 ML 1,000 ML IV SCH (08:34)
[2018-05-09] MEDS ORDERED: K-DUR PO ONE (09:31)
[2018-05-09] MEDS: SODIUM CHLORIDE FLUSH SYRINGE 10 ML IV SCH (10:21)
[2018-05-09] MEDS: LIBRAX 5-2.5 MG PO SCH ×3 (10:41→18:31)
[2018-05-09] MEDS: ZESTRIL PO SCH (10:41)
[2018-05-09] MEDS: PROTONIX PO SCH (10:42)
[2018-05-09] MEDS: ATIVAN PO SCH (10:42)
[2018-05-09] MEDS: KCL 10MEQ/100ML 10 MEQ/100 ML BAG IV SCH ×2 (10:53→12:44)
[2018-05-09 17:58] VITALS: BP 150/95
[2018-05-09 18:06] LABS: BUN/Creatinine Ratio 4; Blood Urea Nitrogen 4 mg/dL (7-17); Calcium 8.2 mg/dL (8.4-10.2); Hemolysis Index 19
--- NOTE | 2018-05-14 12:24 | Operative Report ---
PREOPERATIVE DIAGNOSES: Cholelithiasis, intractable nausea, vomiting. POSTOPERATIVE DIAGNOSES: Cholelithiasis, intractable nausea, vomiting. FINDINGS: Gallbladder with adhesions to the omentum. PROCEDURE: Laparoscopic cholecystectomy. ANESTHESIA: General endotracheal anesthesia, local. SURGEON: Nadja Espinosa DO ESTIMATED BLOOD LOSS: Minimal. PATHOLOGY: Gallbladder specimen. DISPOSITION: To lab. CONDITION AT DISPOSITION: The patient is stable to PACU. HISTORY OF PRESENT ILLNESS AND INDICATION: The patient is a 43-year-old female presented to the hospital with past medical history of severe gastroparesis, presented to the hospital with intractable nausea and vomiting. Prior workup did include EGD. The additional workup included a gallbladder ultrasound, which showed cholelithiasis. The patient was having some upper abdominal pain and intractable nausea and vomiting. She was on the appropriate medications for gastroparesis; however, her symptoms persisted. Upon discussion with Gastroenterology and the patient, it was decided, it was recommended that the gallbladder be removed to attempt to help control the patient's symptoms as part of her vomiting and nausea may have been caused by the cholelithiasis. All risks, benefits, alternatives of surgery were discussed with the patient including the possibility that her symptoms may persist even after gallbladder removal. All questions were answered and consent obtained. DESCRIPTION OF THE PROCEDURE IN DETAIL: The patient was identified in the preoperative area and taken back to the operating room and placed on the operating table in supine position. After anesthesia was induced, the abdomen was prepped and draped in the usual sterile fashion. Timeout was performed. Local anesthetic was infiltrated into all skin incisions. A skin incision was made above the umbilicus through which the Veress needle was placed. Positioning the Veress needle was confirmed using saline drop test and the abdomen insufflated to 15 mmHg. Once the abdomen was insufflated, the Veress needle was removed and 5 mm Optiview trocar was placed through this incision. The abdomen was inspected. There was no underlying injury to any of the abdominal contents. The patient was placed in reverse Trendelenburg position and tilted to the left. An additional 12 mm subxiphoid trocar and two 5 mm right upper quadrant trocars were placed under direct visualization. The omentum was retracted away from the gallbladder and the gallbladder visualized. There were some omental adhesions to the gallbladder. The gallbladder fundus was grasped and lifted cephalad and the adhesions from the omentum were taken down using a hook electrocautery. Once the gallbladder neck was identified, the cystic duct and artery were carefully dissected and skeletonized. The critical view was obtained. The cystic duct and artery were seen as the only two structures entering the gallbladder. Three clips were placed on the proximal aspect of the cystic duct and 1 distally and 2 clips on the cystic artery proximally and 1 distally. Both structures were transected in between the clips using an EndoShears. Gallbladder was dissected off the liver bed using hook electrocautery. Gallbladder was placed into an EndoCatch bag and removed via the 12 mm port. The gallbladder fossa and the liver bed were then inspected and hemostasis achieved using electrocautery. There was no bleeding or bile leakage identified after hemostasis was achieved. The clips were visualized and intact. The patient was placed into neutral position and the abdomen and all ports removed under direct visualization. The abdomen was slowly desufflated. The 12 mm port fascia was closed with interrupted 0 Vicryl suture. Skin incision was closed with 4-0 Monocryl subcuticular stitch and skin glue. At the end of the case, all sponge, instrument, sharp counts were correct x 2. The patient was awoken from anesthesia, extubated, and taken to PACU in stable condition. JOB# [id number] TOYA/SAMIR
== END 2018-05-09 20:17 | disposition home or self-care (01) | DRG 418 ==
LOC: ED 15:00 → 4A 19:45 → 3A 05-05 13:37
PROVIDERS: ADMIT Internal Medicine; ATTEND Internal Medicine
PROC: 0DJ08ZZ Inspection of Upper Intestinal Tract, Via Natural or Artificial Opening Endoscopic (ICD-10-PCS; 2018-05-05)
PROC: 0FT44ZZ Resection of Gallbladder, Percutaneous Endoscopic Approach (ICD-10-PCS; principal; 2018-05-06)
DX: K80.00 Calculus of gallbladder with acute cholecystitis without obstruction (principal); K22.10 Ulcer of esophagus without bleeding; E11.43 Type 2 diabetes mellitus with diabetic autonomic (poly)neuropathy; K31.84 Gastroparesis; R00.0 Tachycardia, unspecified; E86.0 Dehydration; I10 Essential (primary) hypertension; K29.60 Other gastritis without bleeding; E66.9 Obesity, unspecified; E87.6 Hypokalemia; K21.9 Gastro-esophageal reflux disease without esophagitis; K66.0 Peritoneal adhesions (postprocedural) (postinfection); Z91.041 Radiographic dye allergy status; Z87.01 Personal history of pneumonia (recurrent); Z79.899 Other long term (current) drug therapy; Z68.34 Body mass index [BMI] 34.0-34.9, adult; Z90.710 Acquired absence of both cervix and uterus; Z79.4 Long term (current) use of insulin
CPT/HCPCS: 36415; 76700; 80048; 80053; 81001; 82803; 82962; 83690; 85025; 85027; 87116; 88304; G0378; J0330; J0360; J0690; J1100; J1170; J1200; J1815; J2001; J2270; J2405; J2704; J2710; J2765; J3010; J3480; J7030

== ENCOUNTER 2018-05-15 17:59 | Inpatient (IN) | payer MEDICAID, OTHER ==
--- NOTE | 2018-05-15 18:28 | Emergency Department Report ---
Blank Doc - Documentation Documentation: This is a 43 y.o. female that presents with N/V and abdominal pain. Patient r eports taking pain medication and reglan prior to arrival but don't remember the time. Patient is arousable but unable to stay awake sitting in a wheelchair. Patient DM and gastroparesis. She had a cholecystectomy last . This initial assessment diagnostic orders/clinical plan/treatment(s) is/are subject to change based on patient's health status, clinical progression and re- assessment by fellow clinical providers in the ED. Further treatment and workup at subsequent clinical providers discretion. Patient/guardians urged not to elope from ED s their condition may be serious if not clinically assessed and managed. Initial orders include: 1- Labs Main side for further evaluation.
[2018-05-15] MEDS ORDERED: NACL 0.9% 1000 ML 1,000 ML IV ONE ×2 (19:17→22:08)
[2018-05-15] MEDS ORDERED: ZOFRAN IV ONE (19:18)
[2018-05-15 19:20] LABS: Hematocrit 38.4 % (30.3-42.9); Hemoglobin 13.5 gm/dl (10.1-14.3); Mean Corpuscular HGB Conc 35 % (30-34); Mean Corpuscular Volume 81 fl (79-97); Red Blood Count 4.72 M/mm3 (3.65-5.03); Red Cell Distribution Width 14.2 % (13.2-15.2)
[2018-05-15 19:32] LABS: Albumin 3.8 g/dL (3.9-5); BUN/Creatinine Ratio 7; Blood Urea Nitrogen 11 mg/dL (7-17); Calcium 9.1 mg/dL (8.4-10.2); Hemolysis Index 26
[2018-05-15 19:41] LABS: Alanine Aminotransferase < 5 units/L (7-56); Platelet Count 448 K/mm3 (140-440)
[2018-05-15 20:21] LABS: Band Neutrophils # (Manual) 0.1 K/mm3; Basophils % (Manual) 0 % (0.0-1.8); Eosinophils % (Manual) 0 % (0.0-4.3); Total Cells Counted 100
[2018-05-15 20:22] LABS: Platelet Estimate Consistent w Auto; RBC Morphology Normal
[2018-05-15] MEDS ORDERED: K-DUR PO ONE (20:27)
[2018-05-15] MEDS ORDERED: REGLAN IV ONE (22:08)
[2018-05-15] MEDS ORDERED: BENADRYL IV ONE (22:08)
--- NOTE | 2018-05-15 23:50 | Emergency Department Report ---
ED N/V/D HPI - General Chief complaint: Nausea/Vomiting/Diarrhea Stated complaint: ABD PAIN Time Seen by Provider: 05/15/18 18:25 Source: patient, EMS Mode of arrival: Wheelchair Limitations: Physical Limitation - History of Present Illness Initial comments: [id number] female with history of gastroparesis presents to ED with abdominal pain, nausea and vomiting. Patient underwent laparoscopic cholecystectomy 12 days ago. During that admission patient presented with the same symptoms that she is having today. It was thought that her symptoms may be due to gastroparesis, however, patient had gallbladder sludge which showed a possibility of being the cause of her pain. So, surgeon discussed with the patient that removal of gallbladder could possibly improve her symptoms, if not within her gallbladder could be eliminated as the cause. Patient states since the surgery, she never got relief of her pain or nausea. States she is unable to tolerate liquids or solids. MD complaint: nausea, vomiting, abdominal pain -: month(s) (1) Description of Vomiting: watery Associated Abdominal Pain: Yes Location: diffuse Severity: severe Quality: cramping, sharp Consistency: constant Improves with: none Worsens with: none, eating Context: recent surgery/procedure, other (history of gastroparesis) Associated Symptoms: denies: fever/chills - Related Data Previous Rx's Medication Instructions Recorded Last Taken Type Pantoprazole [Protonix TAB] 40 mg PO QDAY #30 tablet 04/12/18 Unknown Rx chlordiazePOXIDE/CLIDINIUM [Librax 1 cap PO ACHS #90 capsule 04/12/18 Unknown Rx 5-2.5 mg] Scopolamine [Transderm-Scop] 1 each TD Q3D #4 patch 04/30/18 Unknown Rx Enalapril Maleate [Vasotec] 10 mg PO BID #60 tablet 05/09/18 Unknown Rx Insulin NPH/Regular [NovoLIN 70/30] 16 unit SUB-Q QPMDIAB units 05/09/18 Unknown Rx Insulin NPH/Regular [NovoLIN 70/30] 35 unit SUB-Q QAMDIAB units 05/09/18 Unknown Rx Insulin Regular, Human [HumuLIN R] 0 units SUB-Q ACHS units 05/09/18 Unknown Rx Lisinopril [Zestril TAB] 10 mg PO BID #30 tablet 05/09/18 Unknown Rx Metoclopramide [Reglan TAB] 10 mg PO TID PRN #90 tablet 05/09/18 Unknown Rx NovoLIN 70/30 16 units SQ QPM 30 Days #2 05/09/18 Unknown Rx Novolin 70-30 100 Unit/ml Vial 35 units SQ QAM 30 Days #2 05/09/18 Unknown Rx Ondansetron [Zofran ODT TAB] 8 mg PO Q8H PRN #30 tab.rapdis 05/09/18 Unknown Rx Pantoprazole [Protonix TAB] 40 mg PO QDAY #30 tablet 05/09/18 Unknown Rx Potassium Chloride [K-Dur] 10 meq PO QDAY #7 tablet 05/09/18 Unknown Rx chlordiazePOXIDE/CLIDINIUM [Librax 1 cap PO ACHS #30 capsule 05/09/18 Unknown Rx 5-2.5 mg] Allergies Allergy/AdvReac Type Severity Reaction Status Date / Time iodine Allergy Unknown Verified 04/07/18 13:15 ED Review of Systems ROS: Stated complaint: ABD PAIN Other details as noted in HPI Comment: All other systems reviewed and negative Constitutional: denies: chills, fever Gastrointestinal: abdominal pain, nausea, vomiting. denies: diarrhea, constipation ED Past Medical Hx - Past Medical History Previous Medical History?: Yes Hx Hypertension: Yes Hx Heart Attack/AMI: No Hx Congestive Heart Failure: No Hx Diabetes: Yes Hx GERD: Yes (Ulcers) Hx Liver Disease: No Hx Renal Disease: Yes (ARIEL (improved)) Hx Seizures: No Hx Asthma: No Hx COPD: No Hx HIV: No Additional medical history: Gastroparesis - Surgical History Past Surgical History?: Yes Hx Cholecystectomy: Yes - Social History Smoking Status: Unknown if ever smoked Substance Use Type: Prescribed - Medications Home Medications: Home Medications Medication Instructions Recorded Confirmed Last Taken Type Pantoprazole [Protonix TAB] 40 mg PO QDAY #30 tablet 04/12/18 05/05/18 Unknown Rx chlordiazePOXIDE/CLIDINIUM [Librax 1 cap PO ACHS #90 capsule 04/12/18 05/05/18 Unknown Rx 5-2.5 mg] Scopolamine [Transderm-Scop] 1 each TD Q3D #4 patch 04/30/18 05/05/18 Unknown Rx Enalapril Maleate [Vasotec] 10 mg PO BID #60 tablet 05/09/18 Unknown Rx Insulin NPH/Regular [NovoLIN 70/30] 16 unit SUB-Q QPMDIAB units 05/09/18 Unknown Rx Insulin NPH/Regular [NovoLIN 70/30] 35 unit SUB-Q QAMDIAB units 05/09/18 Unknown Rx Insulin Regular, Human [HumuLIN R] 0 units SUB-Q ACHS units 05/09/18 Unknown Rx Lisinopril [Zestril TAB] 10 mg PO BID #30 tablet 05/09/18 Unknown Rx Metoclopramide [Reglan TAB] 10 mg PO TID PRN #90 tablet 05/09/18 Unknown Rx NovoLIN 70/30 16 units SQ QPM 30 Days #2 05/09/18 Unknown Rx Novolin 70-30 100 Unit/ml Vial 35 units SQ QAM 30 Days #2 05/09/18 Unknown Rx Ondansetron [Zofran ODT TAB] 8 mg PO Q8H PRN #30 tab.rapdis 05/09/18 Unknown Rx Pantoprazole [Protonix TAB] 40 mg PO QDAY #30 tablet 05/09/18 Unknown Rx Potassium Chloride [K-Dur] 10 meq PO QDAY #7 tablet 05/09/18 Unknown Rx chlordiazePOXIDE/CLIDINIUM [Librax 1 cap PO ACHS #30 capsule 05/09/18 Unknown Rx 5-2.5 mg] ED Physical Exam - General Limitations: Physical Limitation General appearance: alert, other (appears uncomfortable, actively vomiting) - Head Head exam: Present: atraumatic, normocephalic - Eye Eye exam: Present: normal appearance - ENT ENT exam: Present: mucous membranes moist - Neck Neck exam: Present: normal inspection - Respiratory Respiratory exam: Present: normal lung sounds bilaterally. Absent: respiratory distress - Cardiovascular Cardiovascular Exam: Present: normal rhythm, tachycardia - GI/Abdominal GI/Abdominal exam: Present: soft, tenderness (mild diffuse tenderness), other ( incision sites appear clean and intact). Absent: distended - Extremities Exam Extremities exam: Present: normal inspection - Neurological Exam Neurological exam: Present: alert, oriented X3 - Psychiatric Psychiatric exam: Present: normal affect, normal mood - Skin Skin exam: Present: warm, dry, intact, normal color ED Course Vital Signs 05/15/18 05/15/18 05/15/18 18:18 18:25 18:30 Temperature 99 F 99 F Pulse Rate 108 H 108 H Respiratory 20 20 Rate Blood Pressure 91/64 113/71 Blood Pressure 91/64 [Right] O2 Sat by Pulse 99 99 Oximetry 05/15/18 05/15/18 05/15/18 18:46 19:00 19:16 Temperature Pulse Rate 102 H 131 H 112 H Respiratory 13 19 14 Rate Blood Pressure 113/71 113/71 113/71 Blood Pressure [Right] O2 Sat by Pulse 97 99 99 Oximetry 05/15/18 05/15/18 05/15/18 19:30 19:46 20:00 Temperature Pulse Rate 125 H 108 H 112 H Respiratory 22 15 18 Rate Blood Pressure 113/71 113/71 113/71 Blood Pressure [Right] O2 Sat by Pulse 100 98 99 Oximetry 05/15/18 05/15/18 05/15/18 20:16 20:30 20:46 Temperature Pulse Rate 113 H 126 H 132 H Respiratory 14 20 22 Rate Blood Pressure 113/71 113/71 113/71 Blood Pressure [Right] O2 Sat by Pulse 96 99 100 Oximetry 05/15/18 05/15/18 05/15/18 21:00 21:16 21:30 Temperature Pulse Rate 119 H 114 H 117 H Respiratory 16 16 19 Rate Blood Pressure 176/113 162/90 162/90 Blood Pressure [Right] O2 Sat by Pulse 99 99 100 Oximetry 05/15/18 05/15/18 05/15/18 22:15 22:24 22:31 Temperature 99.0 F Pulse Rate 120 H Respiratory 20 Rate Blood Pressure 165/102 156/88 Blood Pressure [Right] O2 Sat by Pulse 100 Oximetry 05/15/18 05/15/18 05/15/18 22:45 23:01 23:10 Temperature Pulse Rate 123 H 115 H 114 H Respiratory 19 23 14 Rate Blood Pressure 165/102 165/102 169/103 Blood Pressure [Right] O2 Sat by Pulse 99 99 98 Oximetry 05/15/18 05/15/18 05/15/18 23:15 23:21 23:31 Temperature Pulse Rate 115 H 116 H 123 H Respiratory 15 21 20 Rate Blood Pressure 165/102 153/84 153/84 Blood Pressure [Right] O2 Sat by Pulse 99 98 98 Oximetry 05/15/18 05/15/18 05/16/18 23:33 23:45 00:01 Temperature Pulse Rate 117 H 115 H 109 H Respiratory 21 17 16 Rate Blood Pressure 153/84 153/84 153/84 Blood Pressure [Right] O2 Sat by Pulse 98 98 99 Oximetry 05/16/18 05/16/18 00:15 00:31 Temperature Pulse Rate 109 H 109 H Respiratory 16 16 Rate Blood Pressure 153/84 153/84 Blood Pressure [Right] O2 Sat by Pulse 99 99 Oximetry - Consultations Consultation #1: 05/16/18 00:09 Spoke w/ Dr Ferreira. Relayed CT findings or small collection of fluid in GB fossa. States likely a seroma, no surgical interventions needed. Will be glad to see patient if hospitalist consults. ED Medical Decision Making - Lab Data Result diagrams: 05/15/18 18:35 05/15/18 18:35 - Radiology Data Radiology results: report reviewed, image reviewed CT Abd/ Pelvis: Small collection of fluid in the gallbladder fossa, may represent a seroma, however in the proper clinical setting abscess would need to be considered. Sequela of probable previous laparoscopic procedure in the anterior abdominal wall fat * tech issues with radiology; results faxed, however not crossing over into [facility] - Medical Decision Making 43-year-old female with symptoms likely related to gastroparesis. CT does not show any acute findings, other than fluid in the gallbladder fossa. Spoke with surgeon, Dr. Ferreira, does not feel as if this constitutes a surgical emergency. Most likely a seroma. Patient remains unable to tolerate by mouth, so will admit to hospitalist, Dr. Anderson - Differential Diagnosis bowel obstruction, dehydration, gastroparesis Critical care attestation.: If time is entered above; I have spent that time in minutes in the direct care of this critically ill patient, excluding procedure time. ED Disposition Clinical Impression: Gastroparesis, Intractable nausea and vomiting, Hypokalemia, Abdominal pain Disposition: OP ADMIT IP TO THIS HOSP Is pt being admited?: Yes Condition: Stable Referrals: PRIMARY CARE,MD [Primary Care Provider] - 3-5 Days Time of Disposition: 23:50
[2018-05-16] MEDS ORDERED: PHENERGAN PR STA (02:06)
[2018-05-16] MEDS ORDERED: KCL 10MEQ/100ML 10 MEQ/100 ML BAG IV ONE (02:08)
[2018-05-16] MEDS ORDERED: D50W (25GM) Syringe IV PRN (02:11)
[2018-05-16] MEDS ORDERED: TYLENOL PR PRN (02:13)
[2018-05-16] MEDS ORDERED: NACL 0.9% 1000 ML 1,000 ML IV SCH (03:00)
[2018-05-16] MEDS: HumaLOG SUB-Q SCH ×6 (03:52→22:57)
[2018-05-16 06:12] LABS: Calcium 8.8 mg/dL (8.4-10.2)
--- NOTE | 2018-05-16 06:26 | History and Physical Report ---
CHIEF COMPLAINT: Nausea, vomiting and diarrhea. Other complaint includes abdominal pain. HISTORY OF PRESENT ILLNESS: The patient is a 43-year-old female with past history of gastroparesis and diabetes mellitus presenting with intractable nausea and vomiting. The patient underwent laparoscopic cholecystectomy about 12 days ago. During the admission for the surgery, the patient had similar symptoms of nausea and vomiting with abdominal pain and his symptoms were thought to be due to gall bladder disease and also they found gallbladder sludge, which they also considered as possible cause of nausea and vomiting and the patient underwent laparoscopic cholecystectomy to help solve the problem of nausea and vomiting, but the patient said that the symptoms persisted. There was no history of fever or chills, but there is history of diarrhea. There is no history of shortness of breath or chest pain. The patient could not keep anything down in the stomach. PAST MEDICAL HISTORY: Pertinent for hypertension, diabetes mellitus, peptic ulcer disease, renal insufficiency, and gastroparesis. PAST SURGICAL HISTORY: Pertinent for cholecystectomy. FAMILY HISTORY: Noncontributory. SOCIAL HISTORY: The patient does not smoke, does not drink alcohol, and does not use illicit drugs. MEDICATIONS: The patient is on Protonix 40 mg by mouth daily, Librax 5/2.5 mg 1 by mouth a.c. and bedtime, scopolamine transdermal scoop 1 transdermally every 3 days, Vasotec 10 mg by mouth twice daily, insulin NPH/regular Novolin 70/60 units q.p.m. diab, also the patient gets 35 units subQ q.a.m. diab units. The patient is also on Humulin R sliding scale and the patient is on Zestril 10 mg by mouth twice daily, Reglan 10 mg by mouth 3 times daily as needed for nausea and vomiting and Zofran under the tongue 8 mg every 8 hours as needed for nausea and vomiting. The patient is also on potassium chloride, K-Dur 10 mEq 11 by mouth daily. ALLERGIES: The patient is allergic to IODINE. REVIEW OF SYSTEMS: CONSTITUTIONAL: There is no fever, no chills, no diaphoresis. HEENT: There is no headache or sore throat. CARDIOVASCULAR SYSTEM: There is no chest pain or orthopnea. RESPIRATORY SYSTEM: There is no shortness of breath or cough. GASTROINTESTINAL SYSTEM: Abdominal pain is present. Nausea and vomiting present and diarrhea present. No constipation. NEUROLOGICAL SYSTEM: There is no numbness, no dizziness, no altered mental status. MUSCULOSKELETAL SYSTEM: There is no joint pain or swelling. DERMATOLOGICAL SYSTEM: There is no skin rash or itching. GENITOURINARY SYSTEM: There is no dysuria, hematuria or flank pain. Rest of system review is normal. PHYSICAL EXAMINATION: GENERAL: At the time of exam, the patient was found to be alert, oriented x3, in mild distress due to abdominal pain. VITAL SIGNS: At the initial time of presentation show temperature of 99 degrees Fahrenheit, pulse of 108, respirations 20, blood pressure 91/64, O2 sat of 99% on room air. HEENT: Shows pupils to be equal, round, reactive to light and accommodation. Extraocular motions are intact. NECK: Supple with no JVD or carotid bruit. CARDIOVASCULAR SYSTEM: Shows normal first and second heart sounds with no gallops or murmurs. RESPIRATORY SYSTEM: Shows good air entry on both sides of the lung with no abnormal breath sounds. GASTROINTESTINAL SYSTEM: Shows abdomen to be full, soft with tenderness in the epigastric and periumbilical areas with no rigidity. No rebound tenderness. No organomegaly. Bowel sound is normal. NEUROLOGICAL SYSTEM: Shows no focal deficits. MUSCULOSKELETAL SYSTEM: Shows no joint swelling or tenderness. DERMATOLOGICAL SYSTEM: Shows no skin rash. GENITOURINARY SYSTEM: Showing no costovertebral angle tenderness. PERTINENT LABORATORY AND IMAGING STUDIES: The patient had CT of the abdomen and pelvis done with results pending. Lab results show CBC with elevated white count of 14,200, normal hemoglobin, normal hematocrit with CBC differential showing elevated segmented neutrophil of 86%. The patient's chemistries showed low potassium level of 3.1, low chloride level of 92.8, elevated creatinine of 1.5 with rest of chemistry being unremarkable. DIAGNOSES: 1. Intractable nausea and vomiting. 2. Acute kidney injury. 3. Hypokalemia. PLAN OF CARE: 1. The patient will be admitted to telemetry. 2. The patient will be on IV Reglan 10 mg every 6 hours for nausea and vomiting. Also, the patient will be on IV morphine 2 mg every 3 hours as needed for pain. 3. The patient will be on IV normal saline running at 125 mL an hour. 4. The patient will have IV potassium chloride 10 mEq in 100 mL of normal saline given over 1 hour. Also, the patient will have Phenergan suppository 25 mg 1 time to see how she reacts to that in controlling the nausea and vomiting. 5. The patient will be on home medications as shown in the medication reconciliation section. 6. The patient will have basic metabolic panel checked this morning after potassium replacement. 7. The patient's diet will be consistent carbohydrate 2 g sodium diet and the patient will be on Accu-Chek q.4 hours followed by low dose sliding scale using regular insulin coverage. The patient will have Nephrology consult with Dr. Flores for evaluation of acute kidney injury. JOB# [id number] OCN/SAMIR MTDGilbert
[2018-05-16] MEDS: APRESOLINE IV PRN ×2 (07:50→12:31)
[2018-05-16] MEDS: LIBRAX 5-2.5 MG PO SCH ×4 (07:51→22:56)
[2018-05-16] MEDS: REGLAN IV PRN (07:54)
[2018-05-16] MEDS: MORPHINE IV PRN ×2 (08:02→12:37)
[2018-05-16] MEDS ORDERED: ZESTRIL PO SCH (10:00)
[2018-05-16] MEDS ORDERED: NON-FORMULARY (Enalapril Maleate [Vasotec] 10 MG) PO SCH (10:00)
[2018-05-16] MEDS: PROTONIX PO SCH (10:38)
[2018-05-16] MEDS: TRANSDERM-SCOP TD SCH (10:39)
[2018-05-16] MEDS ORDERED: MAGNESIUM SULFATE 2GM/50ML 2 GM/50 ML BAG IV ONE (11:50)
--- NOTE | 2018-05-16 11:50 | Consultation ---
History of Present Illness - Reason for Consult Consult date: 05/16/18 acute renal failure Requesting physician: JOSEPH DIA - History of Present Illness emale with history of gastroparesis presents to ED with abdominal pain, nausea and vomiting. Patient underwent laparoscopic cholecystectomy 12 days ago. During that admission patient presented with the same symptoms that she is having today. It was thought that her symptoms may be due to gastroparesis, ho wever, patient had gallbladder sludge which showed a possibility of being the cause of her pain. So, surgeon discussed with the patient that removal of gallbladder could possibly improve her symptoms, if not within her gallbladder could be eliminated as the cause. Patient states since the surgery, she never got relief of her pain or nausea. States she is unable to tolerate liquids or solids. MD complaint: nausea, vomiting, abdominal pain -: month(s) (1) Description of Vomiting: watery Associated Abdominal Pain: Yes Location: diffuse Severity: severe Quality: cramping, sharp Consistency: constant Improves with: none Worsens with: none, eating Context: recent surgery/procedure, other (history of gastroparesis) Associated Symptoms: denies: fever/chills ROS: Stated complaint: ABD PAIN Other details as noted in HPI Comment: All other systems reviewed and negative Constitutional: denies: chills, fever Gastrointestinal: abdominal pain, nausea, vomiting. denies: diarrhea, co nstipation - Past Medical History Previous Medical History?: Yes Hx Hypertension: Yes Hx Heart Attack/AMI: No Hx Congestive Heart Failure: No Hx Diabetes: Yes Hx GERD: Yes (Ulcers) Hx Liver Disease: No Hx Renal Disease: Yes (ARIEL (improved)) Hx Seizures: No Hx Asthma: No Hx COPD: No Hx HIV: No Additional medical history: Gastroparesis - Surgical History Past Surgical History?: Yes Hx Cholecystectomy: Yes - Social History Smoking Status: Unknown if ever smoked Substance Use Type: Prescribed Medications and Allergies Allergies Allergy/AdvReac Type Severity Reaction Status Date / Time iodine Allergy Unknown Verified 04/07/18 13:15 Home Medications Medication Instructions Recorded Confirmed Last Taken Type Pantoprazole [Protonix TAB] 40 mg PO QDAY #30 tablet 04/12/18 05/05/18 Unknown Rx chlordiazePOXIDE/CLIDINIUM [Librax 1 cap PO ACHS #90 capsule 04/12/18 05/05/18 Unknown Rx 5-2.5 mg] Scopolamine [Transderm-Scop] 1 each TD Q3D #4 patch 04/30/18 05/05/18 Unknown Rx Enalapril Maleate [Vasotec] 10 mg PO BID #60 tablet 05/09/18 Unknown Rx Insulin NPH/Regular [NovoLIN 70/30] 16 unit SUB-Q QPMDIAB units 05/09/18 Unknown Rx Insulin NPH/Regular [NovoLIN 70/30] 35 unit SUB-Q QAMDIAB units 05/09/18 Unknown Rx Insulin Regular, Human [HumuLIN R] 0 units SUB-Q ACHS units 05/09/18 Unknown Rx Lisinopril [Zestril TAB] 10 mg PO BID #30 tablet 05/09/18 Unknown Rx Metoclopramide [Reglan TAB] 10 mg PO TID PRN #90 tablet 05/09/18 Unknown Rx NovoLIN 70/30 16 units SQ QPM 30 Days #2 05/09/18 Unknown Rx Novolin 70-30 100 Unit/ml Vial 35 units SQ QAM 30 Days #2 05/09/18 Unknown Rx Ondansetron [Zofran ODT TAB] 8 mg PO Q8H PRN #30 tab.rapdis 05/09/18 Unknown Rx Pantoprazole [Protonix TAB] 40 mg PO QDAY #30 tablet 05/09/18 Unknown Rx Potassium Chloride [K-Dur] 10 meq PO QDAY #7 tablet 05/09/18 Unknown Rx chlordiazePOXIDE/CLIDINIUM [Librax 1 cap PO ACHS #30 capsule 05/09/18 Unknown Rx 5-2.5 mg] Active Meds: Active Medications Acetaminophen (Tylenol) 650 mg MN Q4H PRN PRN Reason: Fever >101 Chlordiazepoxide/Clidinium (Librax 5-2.5 Mg) 1 cap PO ACHS LOLY Last Admin: 05/16/18 07:51 Dose: 1 cap Documented by: Clonidine HCl (Catapres) 0.1 mg PO Q12HR LOLY Dextrose (D50w (25gm) Syringe) 50 ml IV PRN PRN PRN Reason: Hypoglycemia Hydralazine HCl (Apresoline) 10 mg IV Q4HR PRN PRN Reason: BLOOD PRESSURE 150/90 OR GREAT Last Admin: 05/16/18 07:50 Dose: 10 mg Documented by: Sodium Chloride (Nacl 0.9% 1000 Ml) 1,000 mls @ 125 mls/hr IV DIRECT LOLY Last Admin: 05/16/18 03:20 Dose: 125 mls/hr Documented by: Potassium Chloride 20 meq/ (Sodium Chloride) 1,010 mls @ 125 mls/hr IV DIRECT LOLY Insulin Human Lispro (Humalog) 0 unit SUB-Q Q4HR [facility]; Protocol Last Admin: 05/16/18 10:34 Dose: Not Given Documented by: Metoclopramide HCl (Reglan) 10 mg IV Q6H PRN PRN Reason: Nausea And Vomiting Last Admin: 05/16/18 07:54 Dose: 10 mg Documented by: Morphine Sulfate (Morphine) 2 mg IV Q3H PRN PRN Reason: Pain, Moderate (4-6) Last Admin: 05/16/18 08:02 Dose: 2 mg Documented by: Pantoprazole Sodium (Protonix) 40 mg PO QDAY [facility] Last Admin: 05/16/18 10:38 Dose: 40 mg Documented by: Scopolamine (Transderm-Scop) 1 each TD Q3D [facility] Last Admin: 05/16/18 10:39 Dose: 1 each Documented by: Exam - Vital Signs Vital signs: Vital Signs Temp Pulse Resp BP Pulse Ox 99 F 108 H 20 91/64 99 05/15/18 18:18 05/15/18 18:18 05/15/18 18:18 05/15/18 18:18 05/15/18 18:18 - Physical Exam Narrative exam: - General Limitations: Physical Limitation General appearance: alert, other (appears uncomfortable, actively vomiting) - Head Head exam: Present: atraumatic, normocephalic - Eye Eye exam: Present: normal appearance - ENT ENT exam: Present: mucous membranes moist - Neck Neck exam: Present: normal inspection - Respiratory Respiratory exam: Present: normal lung sounds bilaterally. Absent: respiratory distress - Cardiovascular Cardiovascular Exam: Present: normal rhythm, tachycardia - GI/Abdominal GI/Abdominal exam: Present: soft, tenderness (mild diffuse tenderness), other (incision sites appear clean and intact). Absent: distended - Extremities Exam Extremities exam: Present: normal inspection - Neurological Exam Neurological exam: Present: alert, oriented X3 - Psychiatric Psychiatric exam: Present: normal affect, normal mood - Skin Skin exam: Present: warm, dry, intact, normal color Results - Lab Results 05/15/18 18:35 05/16/18 05:29 Most recent lab results Calcium 8.8 mg/dL (8.4-10.2) 05/16/18 05:29 Assessment and Plan Impression: * ARIEL * volume depletion * Hypokalemia * s/p cholecystectomy * Acc HTN Plan: * gentle ivfs * replete k and mag prn * strict i/os * daily lytes * avoid nephrotoxins * follow up ua
[2018-05-16] MEDS: CATAPRES PO SCH ×2 (12:21→22:55)
[2018-05-16] MEDS: NACL 0.9% 1000 ML 1,000 ML with KCL 20 MEQ IV SCH ×2 (13:23→22:55)
[2018-05-16 17:16] LABS: Bacteria,Urine 1+ /HPF (Negative); Bilirubin,Urine NEG (Negative); Blood,Urine NEG (Negative); Color,Urine Yellow (Yellow); Urobilinogen,Urine < 2.0 mg/dL (<2.0)
[2018-05-16 17:17] LABS: Protein,Urine >500 mg/dL (Negative)
--- NOTE | 2018-05-16 17:21 | Progress Note ---
Assessment and Plan - Intractible nausea and vomiting from Gastroparesis ivf, NPO iv Zofran iv Reglan iv Pepcid - ARIEL IVF Nephrology following - Hypokalemia supplement check Mg -DVT PPx Lovenox Subjective Date of service: 05/16/18 Principal diagnosis: Gastroparesis, ARIEL, hypokalemia Interval history: Still having nausea and vomiting with abdominal pain. Objective - Constitutional Vitals: Vital Signs - 12hr 05/16/18 05/16/18 05/16/18 05:43 07:50 10:36 Temperature 99.3 F Pulse Rate 98 H 98 H Respiratory 20 Rate Blood Pressure 170/97 170/97 171/101 O2 Sat by Pulse 98 Oximetry 05/16/18 05/16/18 05/16/18 10:38 11:18 12:21 Temperature 98.9 F Pulse Rate 108 H Respiratory 16 Rate Blood Pressure 171/101 153/91 171/101 O2 Sat by Pulse 97 Oximetry General appearance: Present: no acute distress, well-nourished - EENT Eyes: PERRL, EOM intact ENT: hearing intact, clear oral mucosa Ears: bilateral: normal - Neck Neck: supple, normal ROM - Respiratory Respiratory effort: normal Respiratory: bilateral: CTA - Cardiovascular Rhythm: regular Heart Sounds: Present: S1 & S2. Absent: gallop, rub Extremities: pulses intact, No edema, normal color, Full ROM - Gastrointestinal General gastrointestinal: Present: soft, non-tender, non-distended, normal bowel sounds - Integumentary Integumentary: clear, warm, dry - Musculoskeletal Musculoskeletal: 1, strength equal bilaterally - Neurologic Neurologic: moves all extremities - Psychiatric Psychiatric: memory intact, appropriate mood/affect, intact judgment & insight - Labs CBC & Chem 7: 05/15/18 18:35 05/16/18 05:29 Labs: Abnormal lab results 05/15/18 05/15/18 05/16/18 Range/Units 18:35 18:35 03:55 WBC 14.2 H (4.5-11.0) K/mm3 MCHC 35 H (30-34) % Plt Count 448 H (140-440) K/mm3 Seg Neuts % (Manual) 86.0 H (40.0-70.0) % Lymphocytes % (Manual) 9.0 L (13.4-35.0) % Seg Neutrophils # Man 12.2 H (1.8-7.7) K/mm3 Potassium 3.1 L (3.6-5.0) mmol/L Chloride 92.8 L (98-107) mmol/L Creatinine 1.5 H (0.7-1.2) mg/dL Glucose 145 H (65-100) mg/dL POC Glucose 146 H (70-105) Magnesium (1.7-2.3) mg/dL ALT < 5 L (7-56) units/L Albumin 3.8 L (3.9-5) g/dL 05/16/18 05/16/18 05/16/18 Range/Units 05:29 05:29 05:45 WBC (4.5-11.0) K/mm3 MCHC (30-34) % Plt Count (140-440) K/mm3 Seg Neuts % (Manual) (40.0-70.0) % Lymphocytes % (Manual) (13.4-35.0) % Seg Neutrophils # Man (1.8-7.7) K/mm3 Potassium 3.2 L (3.6-5.0) mmol/L Chloride (98-107) mmol/L Creatinine 1.3 H (0.7-1.2) mg/dL Glucose 151 H (65-100) mg/dL POC Glucose 133 H (70-105) Magnesium 1.40 L (1.7-2.3) mg/dL ALT (7-56) units/L Albumin (3.9-5) g/dL 05/16/18 05/16/18 05/16/18 Range/Units 09:34 14:11 17:05 WBC (4.5-11.0) K/mm3 MCHC (30-34) % Plt Count (140-440) K/mm3 Seg Neuts % (Manual) (40.0-70.0) % Lymphocytes % (Manual) (13.4-35.0) % Seg Neutrophils # Man (1.8-7.7) K/mm3 Potassium (3.6-5.0) mmol/L Chloride (98-107) mmol/L Creatinine (0.7-1.2) mg/dL Glucose (65-100) mg/dL POC Glucose 146 H 140 H 147 H (70-105) Magnesium (1.7-2.3) mg/dL ALT (7-56) units/L Albumin (3.9-5) g/dL
[2018-05-17] MEDS: HumaLOG SUB-Q SCH ×6 (02:00→21:41)
[2018-05-17 05:39] LABS: Basophils % (Auto) 0.5 % (0.0-1.8); Eosinophils # (Auto) 0.2 K/mm3 (0.0-0.4); Eosinophils % (Auto) 3.6 % (0.0-4.3); Hematocrit 28.4 % (30.3-42.9); Hemoglobin 9.7 gm/dl (10.1-14.3); Lymphocytes # (Auto) 2.5 K/mm3 (1.2-5.4); Lymphocytes % (Auto) 36.6 % (13.4-35.0); Mean Corpuscular HGB Conc 34 % (30-34); Mean Corpuscular Volume 82 fl (79-97); Monocytes # (Auto) 0.5 K/mm3 (0.0-0.8); Monocytes % (Auto) 7.5 % (0.0-7.3); Platelet Count 274 K/mm3 (140-440); Red Blood Count 3.44 M/mm3 (3.65-5.03); Red Cell Distribution Width 14.6 % (13.2-15.2)
[2018-05-17] MEDS: NACL 0.9% 1000 ML 1,000 ML with KCL 20 MEQ IV SCH (05:44)
[2018-05-17] MEDS: APRESOLINE IV PRN (05:45)
[2018-05-17] MEDS: REGLAN IV PRN (05:45)
[2018-05-17 06:00] LABS: Albumin 2.8 g/dL (3.9-5); BUN/Creatinine Ratio 7; Blood Urea Nitrogen 8 mg/dL (7-17); Calcium 8.2 mg/dL (8.4-10.2); Hemolysis Index 8
[2018-05-17 06:02] LABS: Alanine Aminotransferase < 5 units/L (7-56)
[2018-05-17] MEDS: MORPHINE IV PRN (07:40)
[2018-05-17] MEDS: LIBRAX 5-2.5 MG PO SCH ×4 (07:41→21:47)
[2018-05-17] MEDS ORDERED: MAGNESIUM SULFATE 2GM/50ML 2 GM/50 ML BAG IV ONE (09:51)
--- NOTE | 2018-05-17 09:53 | Progress Note ---
Assessment and Plan Impression: * ARIEL * volume depletion * Hypokalemia * hypomagnesemia * s/p cholecystectomy * Acc HTN Plan: * gentle ivfs * cr is better today * replete k and mag prn * strict i/os * daily lytes * avoid nephrotoxins * follow up ua noted * will follow labs peripherally * stable from renal standpoint Subjective Date of service: 05/17/18 Principal diagnosis: Gastroparesis, ARIEL, hypokalemia Interval history: resting well in bed today Objective - Exam Narrative Exam: - General Limitations: Physical Limitation General appearance: alert, other (appears uncomfortable, actively vomiting) - Head Head exam: Present: atraumatic, normocephalic - Eye Eye exam: Present: normal appearance - ENT ENT exam: Present: mucous membranes moist - Neck Neck exam: Present: normal inspection - Respiratory Respiratory exam: Present: normal lung sounds bilaterally. Absent: respiratory distress - Cardiovascular Cardiovascular Exam: Present: normal rhythm, tachycardia - GI/Abdominal GI/Abdominal exam: Present: soft, tenderness (mild diffuse tenderness), other (incision sites appear clean and intact). Absent: distended - Extremities Exam Extremities exam: Present: normal inspection - Neurological Exam Neurological exam: Present: alert, oriented X3 - Psychiatric Psychiatric exam: Present: normal affect, normal mood - Skin Skin exam: Present: warm, dry, intact, normal color - Vital Signs Vital signs: Vital Signs - 12hr 05/16/18 05/16/18 05/16/18 21:55 22:00 22:55 Temperature 98.7 F Pulse Rate 94 H 94 H Respiratory 20 Rate Respiratory 18 Rate [Abdomen] Blood Pressure 117/84 Blood Pressure 117/84 [Right] O2 Sat by Pulse 97 Oximetry 05/17/18 05/17/18 05:07 05:45 Temperature 98.9 F Pulse Rate 104 H 105 H Respiratory 20 Rate Respiratory Rate [Abdomen] Blood Pressure 170/100 170/100 Blood Pressure [Right] O2 Sat by Pulse 98 Oximetry - Lab 05/17/18 04:44 05/17/18 04:44 Most recent lab results Calcium 8.2 mg/dL (8.4-10.2) L 05/17/18 04:44 Magnesium 1.70 mg/dL (1.7-2.3) 05/17/18 04:44 Medications & Allergies - Medications Allergies/Adverse Reactions: Allergies iodine Allergy (Verified 04/07/18 13:15) Unknown Home Medications: Home Medications Medication Instructions Recorded Confirmed Last Taken Type Pantoprazole [Protonix TAB] 40 mg PO QDAY #30 tablet 04/12/18 05/05/18 Unknown Rx chlordiazePOXIDE/CLIDINIUM [Librax 1 cap PO ACHS #90 capsule 04/12/18 05/05/18 Unknown Rx 5-2.5 mg] Scopolamine [Transderm-Scop] 1 each TD Q3D #4 patch 04/30/18 05/05/18 Unknown Rx Enalapril Maleate [Vasotec] 10 mg PO BID #60 tablet 05/09/18 Unknown Rx Insulin NPH/Regular [NovoLIN 70/30] 16 unit SUB-Q QPMDIAB units 05/09/18 Unknown Rx Insulin NPH/Regular [NovoLIN 70/30] 35 unit SUB-Q QAMDIAB units 05/09/18 Unknown Rx Insulin Regular, Human [HumuLIN R] 0 units SUB-Q ACHS units 05/09/18 Unknown Rx Lisinopril [Zestril TAB] 10 mg PO BID #30 tablet 05/09/18 Unknown Rx Metoclopramide [Reglan TAB] 10 mg PO TID PRN #90 tablet 05/09/18 Unknown Rx NovoLIN 70/30 16 units SQ QPM 30 Days #2 05/09/18 Unknown Rx Novolin 70-30 100 Unit/ml Vial 35 units SQ QAM 30 Days #2 05/09/18 Unknown Rx Ondansetron [Zofran ODT TAB] 8 mg PO Q8H PRN #30 tab.rapdis 05/09/18 Unknown Rx Pantoprazole [Protonix TAB] 40 mg PO QDAY #30 tablet 05/09/18 Unknown Rx Potassium Chloride [K-Dur] 10 meq PO QDAY #7 tablet 05/09/18 Unknown Rx chlordiazePOXIDE/CLIDINIUM [Librax 1 cap PO ACHS #30 capsule 05/09/18 Unknown Rx 5-2.5 mg] Active Medications: Generic Name Dose Route Start Last Admin Trade Name Freq PRN Reason Stop Dose Admin Acetaminophen 650 mg 05/16/18 02:13 Tylenol MO Q4H PRN Fever >101 Chlordiazepoxide/Clidinium 1 cap 05/16/18 07:30 05/17/18 07:41 Librax 5-2.5 Mg PO 1 cap ACHS LOLY Administration Clonidine HCl 0.1 mg 05/16/18 12:00 05/16/18 22:55 Catapres PO Not Given Q12HR [facility] Dextrose 50 ml 05/16/18 02:11 D50w (25gm) Syringe IV PRN PRN Hypoglycemia Hydralazine HCl 10 mg 05/16/18 06:40 05/17/18 05:45 Apresoline IV 10 mg Q4HR PRN Administration BLOOD PRESSURE 150/90 OR GREAT Potassium Chloride 20 meq/ 1,010 mls @ 125 mls/hr 05/16/18 12:00 05/17/18 05:44 Sodium Chloride IV 125 mls/hr DIRECT LOLY Administration Insulin Human Lispro 0 unit 05/16/18 03:00 05/17/18 05:44 Humalog SUB-Q Not Given Q4HR [facility] Protocol Metoclopramide HCl 10 mg 05/16/18 02:04 05/17/18 05:45 Reglan IV 10 mg Q6H PRN Administration Nausea And Vomiting Morphine Sulfate 2 mg 05/16/18 02:07 05/17/18 07:40 Morphine IV 2 mg Q3H PRN Administration Pain, Moderate (4-6) Pantoprazole Sodium 40 mg 05/16/18 10:00 05/16/18 10:38 Protonix PO 40 mg QDAY LOLY Administration Scopolamine 1 each 05/16/18 10:00 05/16/18 10:39 Transderm-Scop TD 1 each Q3D LOLY Administration
[2018-05-17] MEDS: CATAPRES PO SCH ×2 (10:46→21:47)
[2018-05-17] MEDS: PROTONIX PO SCH (10:46)
--- NOTE | 2018-05-17 16:12 | Cat Scan Report ---
FINAL REPORT EXAM: CT ABDOMEN PELVIS WO CON HISTORY: n/v, recent cholecystectomy TECHNIQUE: Axial helical imaging through the abdomen and pelvis with sagittal and coronal reformatte d images obtained. Comparison: CT abdomen and pelvis dated April 07, 2018 FINDINGS: The lung bases are without infiltrate, pneumothorax or pleural fluid collection. The heart appears to be normal size. The liver, spleen, pancreas, kidneys and adrenal glands are unremarkable on this study without contra st. The gallbladder is absent with surgical clips in the gallbladder fossa. There is mild stranding of the fat in the region the gallbladder fossa with the appearance of a small collection of fluid in the gallbladder fossa. The bowel is normal caliber. There is no evidence of pneumoperitoneum. The appendix is normal caliber. The abdominal aorta is normal caliber. There is no evidence of intra-abdominal adenopathy. The urinary bladder is markedly distended but otherwise unremarkable. The uterus and adnexal are unremarkable. The bony structures are notable for spondylitic change of the lower lumbar spine with degenerative fa cet change and evidence of a disc bulge at the L5-S1 level. There is mild stranding of the fat in portions of the anterior abdominal wall most consistent with se quela of previous laparoscopic procedure. IMPRESSION: 1. Status post cholecystectomy with surgical clips in the gallbladder fossa, mild stranding of the ad jacent fat and a small collection of fluid in the gallbladder fossa. The fluid collection may represe nt a seroma. However, in the proper clinical setting an abscess would need to be considered. If there is a clinical concern for abscess, CT abdomen and pelvis with IV contrast would be helpful for furth er evaluation. 2. Spondylitic change lower lumbar spine. 3. Sequela of probable previous laparoscopic procedure in the anterior abdominal wall fat.
[2018-05-17] MEDS ORDERED: KCL 20MEQ/100ML 20 MEQ/100 ML BAG IV ONE (16:21)
--- NOTE | 2018-05-17 16:21 | Progress Note ---
Assessment and Plan - Intractible nausea and vomiting from Gastroparesis ivf, NPO iv Zofran iv Reglan iv Pepcid commence clear liquid - ARIEL - resolved IVF Nephrology following - Hypokalemia supplement further Mg - nl -DVT PPx Lovenox -Disposition discharge home when patient is a very thin liquid diet - Time spent 35 minutes Subjective Date of service: 05/17/18 Principal diagnosis: Gastroparesis, ARIEL, hypokalemia Interval history: Nausea and vomiting improving. No fever Objective - Exam Narrative Exam: Constitutional: Well-nourished well-developed. In no distress Head: Normocephalic atraumatic Eyes: Pupils are equal round and reactive to light Nose: No enlarged turbinates, no septal deviation. Mouth: Moist mucous membranes. Neck: Supple no thyromegaly. No bruit. No JVD Heart: Regular rate and rhythm, S1-S2 normal. No rubs murmurs or gallop Lungs: Clear to auscultation bilaterally. no rales or rhonchi Abdomen: Soft, nontender. Bowel sound are present. Extremities: No edema, no cyanosis, no clubbing. Neuro: Alert oriented Oriented x3. No focal sensory or motor deficit. Skin: No rashes or hyperpigmented spots Musculoskeletal system: No joint pain or swelling Hematological: No petechia or subcutanous hemorrhages. Immunological: No multiple septic spots on the skin Lymphatic: No generalized lymphadenopathy Psychiatry: Euthymic. Calm. - Constitutional Vitals: Vital Signs - 12hr 05/17/18 05/17/18 05/17/18 05:07 05:45 10:44 Temperature 98.9 F Pulse Rate 104 H 105 H Respiratory 20 Rate Blood Pressure 170/100 170/100 108/73 O2 Sat by Pulse 98 Oximetry 05/17/18 05/17/18 10:46 12:40 Temperature 98.3 F Pulse Rate 94 H 92 H Respiratory 18 Rate Blood Pressure 108/73 139/85 O2 Sat by Pulse 96 Oximetry - Labs CBC & Chem 7: 05/17/18 04:44 05/17/18 04:44 Labs: Abnormal lab results 05/16/18 05/16/18 05/17/18 Range/Units 17:05 21:35 00:06 RBC (3.65-5.03) M/mm3 Hgb (10.1-14.3) gm/dl Hct (30.3-42.9) % Lymph % (Auto) (13.4-35.0) % Sierra % (Auto) (0.0-7.3) % Potassium (3.6-5.0) mmol/L Glucose (65-100) mg/dL POC Glucose 147 H 177 H 177 H (70-105) Calcium (8.4-10.2) mg/dL ALT (7-56) units/L Total Protein (6.3-8.2) g/dL Albumin (3.9-5) g/dL 05/17/18 05/17/18 05/17/18 Range/Units 04:44 04:44 05:11 RBC 3.44 L (3.65-5.03) M/mm3 Hgb 9.7 L D (10.1-14.3) gm/dl Hct 28.4 L D (30.3-42.9) % Lymph % (Auto) 36.6 H (13.4-35.0) % Sierra % (Auto) 7.5 H (0.0-7.3) % Potassium 3.1 L (3.6-5.0) mmol/L Glucose 135 H (65-100) mg/dL POC Glucose 130 H (70-105) Calcium 8.2 L (8.4-10.2) mg/dL ALT < 5 L (7-56) units/L Total Protein 5.4 L D (6.3-8.2) g/dL Albumin 2.8 L (3.9-5) g/dL
[2018-05-17] MEDS ORDERED: LIBRAX 5-2.5 MG PO SCH (16:30)
[2018-05-17] MEDS ORDERED: KCL 10MEQ/100ML 10 MEQ/100 ML BAG IV SCH (18:00)
[2018-05-17] MEDS: NACL 0.9% 1000 ML 1,000 ML with KCL 40 MEQ IV SCH (21:50)
[2018-05-18] MEDS: NACL 0.9% 1000 ML 1,000 ML with KCL 40 MEQ IV SCH (03:31)
[2018-05-18] MEDS: HumaLOG SUB-Q SCH ×6 (03:32→22:07)
[2018-05-18] MEDS: REGLAN IV PRN ×2 (05:45→22:01)
[2018-05-18] MEDS: MORPHINE IV PRN (05:45)
[2018-05-18 08:32] LABS: Basophils % (Auto) 0.2 % (0.0-1.8); Eosinophils # (Auto) 0.2 K/mm3 (0.0-0.4); Hematocrit 30.4 % (30.3-42.9); Hemoglobin 10.1 gm/dl (10.1-14.3); Lymphocytes # (Auto) 1.6 K/mm3 (1.2-5.4); Lymphocytes % (Auto) 22.4 % (13.4-35.0); Mean Corpuscular HGB Conc 33 % (30-34); Mean Corpuscular Volume 82 fl (79-97); Monocytes # (Auto) 0.4 K/mm3 (0.0-0.8); Monocytes % (Auto) 6.4 % (0.0-7.3); Platelet Count 309 K/mm3 (140-440); Red Blood Count 3.69 M/mm3 (3.65-5.03); Red Cell Distribution Width 14.2 % (13.2-15.2)
[2018-05-18 08:55] LABS: Albumin 3.1 g/dL (3.9-5); BUN/Creatinine Ratio 6; Blood Urea Nitrogen 5 mg/dL (7-17); Calcium 8.2 mg/dL (8.4-10.2); Hemolysis Index 7
[2018-05-18 08:58] LABS: Alanine Aminotransferase < 5 units/L (7-56)
[2018-05-18] MEDS: LIBRAX 5-2.5 MG PO SCH ×4 (09:02→22:01)
[2018-05-18] MEDS: NACL 0.9% IV SCH ×2 (09:04→22:51)
[2018-05-18] MEDS: KCL IV SCH ×2 (09:04→22:51)
[2018-05-18] MEDS: CATAPRES PO SCH ×2 (09:35→22:03)
[2018-05-18] MEDS: PROTONIX PO SCH (09:37)
--- NOTE | 2018-05-18 09:41 | Progress Note ---
Assessment and Plan Impression: * ARIEL * volume depletion * Hypokalemia * hypomagnesemia * s/p cholecystectomy * Acc HTN Plan: * gentle ivfs * cr is better today * replete k and mag prn * strict i/os * daily lytes * avoid nephrotoxins * ?surgery or gi consultation * follow up ua noted * will follow labs peripherally Subjective Date of service: 05/18/18 Principal diagnosis: Gastroparesis, ARIEL, hypokalemia Interval history: resting well in bed today Objective - Exam Narrative Exam: - General Limitations: Physical Limitation General appearance: alert, other (appears uncomfortable, actively vomiting) - Head Head exam: Present: atraumatic, normocephalic - Eye Eye exam: Present: normal appearance - ENT ENT exam: Present: mucous membranes moist - Neck Neck exam: Present: normal inspection - Respiratory Respiratory exam: Present: normal lung sounds bilaterally. Absent: respiratory distress - Cardiovascular Cardiovascular Exam: Present: normal rhythm, tachycardia - GI/Abdominal GI/Abdominal exam: Present: soft, tenderness (mild diffuse tenderness), other (incision sites appear clean and intact). Absent: distended - Extremities Exam Extremities exam: Present: normal inspection - Neurological Exam Neurological exam: Present: alert, oriented X3 - Psychiatric Psychiatric exam: Present: normal affect, normal mood - Skin Skin exam: Present: warm, dry, intact, normal color - Vital Signs Vital signs: Vital Signs - 12hr 05/18/18 05/18/18 05/18/18 00:06 06:28 09:35 Temperature 98.6 F 98.3 F Pulse Rate 85 Respiratory 20 18 Rate Blood Pressure 140/87 108/73 108/73 O2 Sat by Pulse 97 Oximetry - Lab 05/18/18 08:03 05/18/18 08:03 Most recent lab results Calcium 8.2 mg/dL (8.4-10.2) L 05/18/18 08:03 Magnesium 1.70 mg/dL (1.7-2.3) 05/18/18 08:03 Medications & Allergies - Medications Allergies/Adverse Reactions: Allergies iodine Allergy (Verified 04/07/18 13:15) Unknown Home Medications: Home Medications Medication Instructions Recorded Confirmed Last Taken Type RX: Pantoprazole [Protonix TAB] 40 mg PO QDAY #30 tablet 04/12/18 05/05/18 Unknown Rx RX: chlordiazePOXIDE/CLIDINIUM 1 cap PO ACHS #90 capsule 04/12/18 05/05/18 Unknown Rx [Librax 5-2.5 mg] RX: Scopolamine [Transderm-Scop] 1 each TD Q3D #4 patch 04/30/18 05/05/18 Unknown Rx NovoLIN 70/30 16 units SQ QPM 30 Days #2 05/09/18 Unknown Rx Novolin 70-30 100 Unit/ml Vial 35 units SQ QAM 30 Days #2 05/09/18 Unknown Rx Potassium Chloride [K-Dur] 10 meq PO QDAY #7 tablet 05/09/18 Unknown Rx RX: Enalapril Maleate [Vasotec] 10 mg PO BID #60 tablet 05/09/18 Unknown Rx RX: Insulin NPH/Regular [NovoLIN 16 unit SUB-Q QPMDIAB units 05/09/18 Unknown Rx 70/30] RX: Insulin NPH/Regular [NovoLIN 35 unit SUB-Q QAMDIAB units 05/09/18 Unknown Rx 7030] RX: Insulin Regular, Human 0 units SUB-Q ACHS units 05/09/18 Unknown Rx [HumuLIN R] RX: Lisinopril [Zestril TAB] 10 mg PO BID #30 tablet 05/09/18 Unknown Rx RX: Metoclopramide [Reglan TAB] 10 mg PO TID PRN #90 tablet 05/09/18 Unknown Rx RX: Ondansetron [Zofran ODT TAB] 8 mg PO Q8H PRN #30 tab.rapdis 05/09/18 Unknown Rx RX: Pantoprazole [Protonix TAB] 40 mg PO QDAY #30 tablet 05/09/18 Unknown Rx RX: chlordiazePOXIDE/CLIDINIUM 1 cap PO ACHS #30 capsule 05/09/18 Unknown Rx [Librax 5-2.5 mg] Active Medications: Generic Name Dose Route Start Last Admin Trade Name Freq PRN Reason Stop Dose Admin Acetaminophen 650 mg 05/16/18 02:13 Tylenol HI Q4H PRN Fever >101 Chlordiazepoxide/Clidinium 1 cap 05/16/18 07:30 05/18/18 09:02 Librax 5-2.5 Mg PO 1 cap ACHS LOLY Administration Clonidine HCl 0.1 mg 05/16/18 12:00 05/18/18 09:35 Catapres PO Not Given Q12HR [facility] Dextrose 50 ml 05/16/18 02:11 D50w (25gm) Syringe IV PRN PRN Hypoglycemia Hydralazine HCl 10 mg 05/16/18 06:40 05/17/18 05:45 Apresoline IV 10 mg Q4HR PRN Administration BLOOD PRESSURE 150/90 OR GREAT Potassium Chloride 40 meq/ 1,020 mls @ 125 mls/hr 05/17/18 18:00 05/18/18 09:04 Sodium Chloride IV 125 mls/hr DIRECT LOLY Administration Magnesium Sulfate 2 gm in 50 mls @ 25 mls/hr 05/18/18 09:40 Magnesium Sulfate 2gm/50ml IV 05/18/18 11:39 ONCE ONE Insulin Human Isoph/Insulin Regular 35 unit 05/18/18 08:00 05/18/18 09:04 Humulin 70/30 SUB-Q Not Given QAMDIAB [facility] Insulin Human Lispro 0 unit 05/16/18 03:00 05/18/18 05:59 Humalog SUB-Q Not Given Q4HR [facility] Protocol Metoclopramide HCl 10 mg 05/16/18 02:04 05/18/18 05:45 Reglan IV 10 mg Q6H PRN Administration Nausea And Vomiting Morphine Sulfate 2 mg 05/16/18 02:07 05/18/18 05:45 Morphine IV 2 mg Q3H PRN Administration Pain, Moderate (4-6) Pantoprazole Sodium 40 mg 05/16/18 10:00 05/18/18 09:37 Protonix PO 40 mg QDAY [facility] Administration Scopolamine 1 each 05/16/18 10:00 05/16/18 10:39 Transderm-Scop TD 1 each Q3D LOLY Administration
[2018-05-18] MEDS ORDERED: PROTONIX PO SCH (10:00)
--- NOTE | 2018-05-18 10:54 | Consultation ---
History of Present Illness Consult date: 05/18/18 Chief complaint: n/v - History of present illness History of present illness: 43 yo F with hx of DM, gastroparesis known to me as she is s/p cholecystectomy on 05/06/18 for cholelithiasis. She presents to hospital with c/o several days of intractable n/v (bilious/nonbloody) along with constant epigastric and mid abdominal pain. Pt states that 2 days after being discharged from the last hospitalization, her n/v and abdominal pain returned. These are the same symptoms she had prior to cholecystectomy which were related to her g astroparesis. She feels very tired. She is tolerating clear liquids today without n/v. She states she cannot eat solid food. On last hospitalization she underwent EGD with Dr. Sanchez which was unremarkable. Past History Past Medical History: diabetes, other (gastroparesis) Past Surgical History: Other (laparoscopic cholecystectomy 05/06/18, EGD) Social history: no significant social history Family history: no significant family history Medications and Allergies Allergies Allergy/AdvReac Type Severity Reaction Status Date / Time iodine Allergy Unknown Verified 04/07/18 13:15 Home Medications Medication Instructions Recorded Confirmed Last Taken Type Pantoprazole [Protonix TAB] 40 mg PO QDAY #30 tablet 04/12/18 05/05/18 Unknown Rx chlordiazePOXIDE/CLIDINIUM [Librax 1 cap PO ACHS #90 capsule 04/12/18 05/05/18 Unknown Rx 5-2.5 mg] Scopolamine [Transderm-Scop] 1 each TD Q3D #4 patch 04/30/18 05/05/18 Unknown Rx Enalapril Maleate [Vasotec] 10 mg PO BID #60 tablet 05/09/18 Unknown Rx Insulin NPH/Regular [NovoLIN 70/30] 16 unit SUB-Q QPMDIAB units 05/09/18 Unknown Rx Insulin NPH/Regular [NovoLIN 70/30] 35 unit SUB-Q QAMDIAB units 05/09/18 Unknown Rx Insulin Regular, Human [HumuLIN R] 0 units SUB-Q ACHS units 05/09/18 Unknown Rx Lisinopril [Zestril TAB] 10 mg PO BID #30 tablet 05/09/18 Unknown Rx Metoclopramide [Reglan TAB] 10 mg PO TID PRN #90 tablet 05/09/18 Unknown Rx NovoLIN 70/30 16 units SQ QPM 30 Days #2 05/09/18 Unknown Rx Novolin 70-30 100 Unit/ml Vial 35 units SQ QAM 30 Days #2 05/09/18 Unknown Rx Ondansetron [Zofran ODT TAB] 8 mg PO Q8H PRN #30 tab.rapdis 05/09/18 Unknown Rx Pantoprazole [Protonix TAB] 40 mg PO QDAY #30 tablet 05/09/18 Unknown Rx Potassium Chloride [K-Dur] 10 meq PO QDAY #7 tablet 05/09/18 Unknown Rx chlordiazePOXIDE/CLIDINIUM [Librax 1 cap PO ACHS #30 capsule 05/09/18 Unknown Rx 5-2.5 mg] Active Meds: Active Medications Acetaminophen (Tylenol) 650 mg NC Q4H PRN PRN Reason: Fever >101 Chlordiazepoxide/Clidinium (Librax 5-2.5 Mg) 1 cap PO ACHS LOLY Last Admin: 05/18/18 09:02 Dose: 1 cap Documented by: Clonidine HCl (Catapres) 0.1 mg PO Q12HR LOLY Last Admin: 05/18/18 09:35 Dose: Not Given Documented by: Dextrose (D50w (25gm) Syringe) 50 ml IV PRN PRN PRN Reason: Hypoglycemia Hydralazine HCl (Apresoline) 10 mg IV Q4HR PRN PRN Reason: BLOOD PRESSURE 150/90 OR GREAT Last Admin: 05/17/18 05:45 Dose: 10 mg Documented by: Potassium Chloride 40 meq/ (Sodium Chloride) 1,020 mls @ 125 mls/hr IV DIRECT [facility] Last Admin: 05/18/18 09:04 Dose: 125 mls/hr Documented by: Magnesium Sulfate (Magnesium Sulfate 2gm/50ml) 2 gm in 50 mls @ 25 mls/hr IV ONCE ONE Stop: 05/18/18 12:59 Insulin Human Isoph/Insulin Regular (Humulin 70/30) 35 unit SUB-Q QAMDIAB [facility] Last Admin: 05/18/18 09:04 Dose: Not Given Documented by: Insulin Human Lispro (Humalog) 0 unit SUB-Q Q4HR LOLY; Protocol Last Admin: 05/18/18 05:59 Dose: Not Given Documented by: Metoclopramide HCl (Reglan) 10 mg IV Q6H PRN PRN Reason: Nausea And Vomiting Last Admin: 05/18/18 05:45 Dose: 10 mg Documented by: Morphine Sulfate (Morphine) 2 mg IV Q3H PRN PRN Reason: Pain, Moderate (4-6) Last Admin: 05/18/18 05:45 Dose: 2 mg Documented by: Pantoprazole Sodium (Protonix) 40 mg PO QDAY [facility] Last Admin: 05/18/18 09:37 Dose: 40 mg Documented by: Scopolamine (Transderm-Scop) 1 each TD Q3D [facility] Last Admin: 05/16/18 10:39 Dose: 1 each Documented by: Review of Systems All systems: negative (10 pt ROS performed and negative except for that listed in HPI) Exam Vital Signs Temp Pulse Resp BP Pulse Ox 99 F 108 H 20 91/64 99 05/15/18 18:18 05/15/18 18:18 05/15/18 18:18 05/15/18 18:18 05/15/18 18:18 Narrative exam: gen: AAOx3. NAD ENT; dry MM, no scleral icterus or conjunctival pallor CV: s1, s2+ Resp: even and unlabored Abd: soft, NT, ND. incisions healed well Ext: no c/c/e Results - Labs 05/18/18 08:03 05/18/18 08:03 Abnormal lab results 05/17/18 05/17/18 05/17/18 Range/Units 11:00 14:16 17:17 MCH (28-32) pg Potassium (3.6-5.0) mmol/L BUN (7-17) mg/dL Glucose (65-100) mg/dL POC Glucose 209 H 170 H 138 H (70-105) Calcium (8.4-10.2) mg/dL ALT (7-56) units/L Total Protein (6.3-8.2) g/dL Albumin (3.9-5) g/dL 05/17/18 05/18/18 05/18/18 Range/Units 21:06 02:02 06:01 MCH (28-32) pg Potassium (3.6-5.0) mmol/L BUN (7-17) mg/dL Glucose (65-100) mg/dL POC Glucose 164 H 174 H 69 L (70-105) Calcium (8.4-10.2) mg/dL ALT (7-56) units/L Total Protein (6.3-8.2) g/dL Albumin (3.9-5) g/dL 05/18/18 05/18/18 05/18/18 Range/Units 08:03 08:03 08:03 MCH 27 L (28-32) pg Potassium 3.5 L (3.6-5.0) mmol/L BUN 5 L (7-17) mg/dL Glucose 151 H (65-100) mg/dL POC Glucose 138 H (70-105) Calcium 8.2 L (8.4-10.2) mg/dL ALT < 5 L (7-56) units/L Total Protein 5.7 L (6.3-8.2) g/dL Albumin 3.1 L (3.9-5) g/dL Diabetes panel 05/18/18 Range/Units 08:03 Sodium 138 (137-145) mmol/L Potassium 3.5 L (3.6-5.0) mmol/L Chloride 101.9 (98-107) mmol/L Carbon Dioxide 24 (22-30) mmol/L BUN 5 L (7-17) mg/dL Creatinine 0.9 (0.7-1.2) mg/dL Glucose 151 H (65-100) mg/dL Calcium 8.2 L (8.4-10.2) mg/dL AST 8 (5-40) units/L ALT < 5 L (7-56) units/L Alkaline Phosphatase 68 (35-129) units/L Total Protein 5.7 L (6.3-8.2) g/dL Albumin 3.1 L (3.9-5) g/dL Calcium panel 05/18/18 Range/Units 08:03 Calcium 8.2 L (8.4-10.2) mg/dL Albumin 3.1 L (3.9-5) g/dL Pituitary panel 05/18/18 Range/Units 08:03 Sodium 138 (137-145) mmol/L Potassium 3.5 L (3.6-5.0) mmol/L Chloride 101.9 (98-107) mmol/L Carbon Dioxide 24 (22-30) mmol/L BUN 5 L (7-17) mg/dL Creatinine 0.9 (0.7-1.2) mg/dL Glucose 151 H (65-100) mg/dL Calcium 8.2 L (8.4-10.2) mg/dL Adrenal panel 05/18/18 Range/Units 08:03 Sodium 138 (137-145) mmol/L Potassium 3.5 L (3.6-5.0) mmol/L Chloride 101.9 (98-107) mmol/L Carbon Dioxide 24 (22-30) mmol/L BUN 5 L (7-17) mg/dL Creatinine 0.9 (0.7-1.2) mg/dL Glucose 151 H (65-100) mg/dL Calcium 8.2 L (8.4-10.2) mg/dL Total Bilirubin 0.30 (0.1-1.2) mg/dL AST 8 (5-40) units/L ALT < 5 L (7-56) units/L Alkaline Phosphatase 68 (35-129) units/L Total Protein 5.7 L (6.3-8.2) g/dL Albumin 3.1 L (3.9-5) g/dL - Imaging CT scan - abdomen: report reviewed, image reviewed CT scan - pelvis: report reviewed, image reviewed Assessment and Plan 43 yo F with n/v, hx of gastroparesis, s/p laparoscopic cholecystectomy on 05/06/18 Plan: Patient's symptoms are most consistent with her known hx of gastroparesis. Ct scan shows post surgical changes s/p cholecystectomy. Very low suspicion that small fluid collection is abscess or bile leak given patient's WBC is normal, she is afebrile, LFTs are normal and she is not presenting as such. 1. c/w clear liquid diet, IVF 2. start reglan IV 3. GI consult 4. ?start motility agents such as erythromycin - will defer to GI 5. Patient may need to be referred to gastroparesis specialist for evaluation of gastric pacemaker. She would like to know her options before committing to any surgical procedures. No surgical intervention at this time. Thank you, please call with questions.
[2018-05-18] MEDS ORDERED: MAGNESIUM SULFATE 2GM/50ML 2 GM/50 ML BAG IV ONE (11:00)
[2018-05-18] MEDS ORDERED: K-DUR PO SCH (12:00)
--- NOTE | 2018-05-18 14:18 | Gastroenterology Consultation ---
Addendum entered and electronically signed by HARRIS STAPLES MD 05/18/18 17:10: Case discussed with mid-level provider and agree with A/P and recommendations. Patient not seen on 05/18/2018 by me. Continue with reglan, if not improving, will consider erythromycin tomorrow. Original Note: History of Present Illness - Reason for Consult Consult date: 05/18/18 intractable N/V, abd pain Requesting physician: ALESHA YI - History of Present Illness Patient is a 43 y/o female with PMH of DM (uncontrolled), HTN, obesity, and gastroparesis (dx 2018 in [place] after EGD and GES per pt report) who presented to ED with c/o epigastric pain and intractable N/V (non-bloody bilious emesis) to which GI has been consulted. Patient is well known to our service from multiple previous hospitalizations for similar symptoms with last consult on 05/04/18. She underwent an EGD at that time that showed mild erosive esophagitis and emetog enic gastritis, along with a lap cholecystectomy for cholelithiasis thought to possibly be contributing to symptoms. This afternoon patient was resting in bed w/o acute distress. Reports epigastric and N/V are now starting to improve with only only episode of vomiting today. Tolerating clears. Denies CP, SOB, fever, dysphagia, signs of bleeding, or LGI symptoms. CT on admission showed post surgical changes with small fluid collection to which surgery was consulted with very low suspicion for abscess or bile leak (WBC is normal, she is afebrile, LFTs are normal). Past History Past Medical History: diabetes, hypertension, other (gastroparesis, obesity) Past Surgical History: cholecystectomy, hysterectomy, Other (hip surgery as a child, EGD) Social history: denies: smoking, alcohol abuse Family history: no significant family history Medications and Allergies Allergies Allergy/AdvReac Type Severity Reaction Status Date / Time iodine Allergy Unknown Verified 04/07/18 13:15 Home Medications Medication Instructions Recorded Confirmed Last Taken Type Pantoprazole [Protonix TAB] 40 mg PO QDAY #30 tablet 04/12/18 05/05/18 Unknown Rx chlordiazePOXIDE/CLIDINIUM [Librax 1 cap PO ACHS #90 capsule 04/12/18 05/05/18 Unknown Rx 5-2.5 mg] Scopolamine [Transderm-Scop] 1 each TD Q3D #4 patch 04/30/18 05/05/18 Unknown Rx Enalapril Maleate [Vasotec] 10 mg PO BID #60 tablet 05/09/18 Unknown Rx Insulin NPH/Regular [NovoLIN 70/30] 16 unit SUB-Q QPMDIAB units 05/09/18 Unknown Rx Insulin NPH/Regular [NovoLIN 70/30] 35 unit SUB-Q QAMDIAB units 05/09/18 Unknown Rx Insulin Regular, Human [HumuLIN R] 0 units SUB-Q ACHS units 05/09/18 Unknown Rx Lisinopril [Zestril TAB] 10 mg PO BID #30 tablet 05/09/18 Unknown Rx Metoclopramide [Reglan TAB] 10 mg PO TID PRN #90 tablet 05/09/18 Unknown Rx NovoLIN 70/30 16 units SQ QPM 30 Days #2 05/09/18 Unknown Rx Novolin 70-30 100 Unit/ml Vial 35 units SQ QAM 30 Days #2 05/09/18 Unknown Rx Ondansetron [Zofran ODT TAB] 8 mg PO Q8H PRN #30 tab.rapdis 05/09/18 Unknown Rx Pantoprazole [Protonix TAB] 40 mg PO QDAY #30 tablet 05/09/18 Unknown Rx Potassium Chloride [K-Dur] 10 meq PO QDAY #7 tablet 05/09/18 Unknown Rx chlordiazePOXIDE/CLIDINIUM [Librax 1 cap PO ACHS #30 capsule 05/09/18 Unknown Rx 5-2.5 mg] Active Meds: Active Medications Acetaminophen (Tylenol) 650 mg DE Q4H PRN PRN Reason: Fever >101 Chlordiazepoxide/Clidinium (Librax 5-2.5 Mg) 1 cap PO ACHS LOLY Last Admin: 05/18/18 13:28 Dose: 1 cap Documented by: Clonidine HCl (Catapres) 0.1 mg PO Q12HR [facility] Last Admin: 05/18/18 09:35 Dose: Not Given Documented by: Dextrose (D50w (25gm) Syringe) 50 ml IV PRN PRN PRN Reason: Hypoglycemia Hydralazine HCl (Apresoline) 10 mg IV Q4HR PRN PRN Reason: BLOOD PRESSURE 150/90 OR GREAT Last Admin: 05/17/18 05:45 Dose: 10 mg Documented by: Potassium Chloride 40 meq/ (Sodium Chloride) 1,020 mls @ 125 mls/hr IV DIRECT [facility] Last Admin: 05/18/18 09:04 Dose: 125 mls/hr Documented by: Insulin Human Isoph/Insulin Regular (Humulin 70/30) 35 unit SUB-Q QAMDIAB [facility] Last Admin: 05/18/18 09:04 Dose: Not Given Documented by: Insulin Human Lispro (Humalog) 0 unit SUB-Q Q4HR [facility]; Protocol Last Admin: 05/18/18 13:26 Dose: Not Given Documented by: Metoclopramide HCl (Reglan) 10 mg IV Q6H PRN PRN Reason: Nausea And Vomiting Last Admin: 05/18/18 05:45 Dose: 10 mg Documented by: Morphine Sulfate (Morphine) 2 mg IV Q3H PRN PRN Reason: Pain, Moderate (4-6) Last Admin: 05/18/18 05:45 Dose: 2 mg Documented by: Pantoprazole Sodium (Protonix) 40 mg PO QDAY [facility] Last Admin: 05/18/18 09:37 Dose: 40 mg Documented by: Potassium Chloride (K-Dur) 40 meq PO QDAY [facility] Stop: 05/20/18 11:59 Last Admin: 05/18/18 13:28 Dose: 40 meq Documented by: Scopolamine (Transderm-Scop) 1 each TD Q3D [facility] Last Admin: 05/16/18 10:39 Dose: 1 each Documented by: medications reviewed/updated as required Review of Systems - Review of Systems All systems: negative Gastrointestinal: abdominal pain (epigastric), nausea, vomiting Exam - Constitutional Vital Signs: Temp Pulse Resp BP Pulse Ox 98.5 F 88 20 131/78 100 05/18/18 12:42 05/18/18 12:42 05/18/18 12:42 05/18/18 12:42 05/18/18 12:42 General appearance: no acute distress - EENT Eyes: PERRL, EOM intact ENT: hearing intact - Respiratory Respiratory: bilateral: CTA - Cardiovascular Rhythm: regular Heart Sounds: Present: S1 & S2 - Gastrointestinal General gastrointestinal: Present: soft, non-tender (slight TTP in epigastric area), non-distended, normal bowel sounds - Neurologic Neurological: alert and oriented x3 - Labs CBC & Chem 7: 02/19/19 08:03 05/18/18 08:03 Lab Results: Laboratory Results - last 24 hr 05/17/18 05/17/18 05/17/18 11:00 14:16 17:17 WBC RBC Hgb Hct MCV MCH MCHC RDW Plt Count Lymph % (Auto) [place] % (Auto) Eos % (Auto) Baso % (Auto) Lymph # [place] # Eos # Baso # Seg Neutrophils % Seg Neutrophils # Sodium Potassium Chloride Carbon Dioxide Anion Gap BUN Creatinine Estimated GFR BUN/Creatinine Ratio Glucose POC Glucose 209 H 170 H 138 H Calcium Magnesium Total Bilirubin AST ALT Alkaline Phosphatase Total Protein Albumin Albumin/Globulin Ratio 05/17/18 05/18/18 05/18/18 21:06 02:02 06:01 WBC RBC Hgb Hct MCV MCH MCHC RDW Plt Count Lymph % (Auto) [place] % (Auto) Eos % (Auto) Baso % (Auto) Lymph # [place] # Eos # Baso # Seg Neutrophils % Seg Neutrophils # Sodium Potassium Chloride Carbon Dioxide Anion Gap BUN Creatinine Estimated GFR BUN/Creatinine Ratio Glucose POC Glucose 164 H 174 H 69 L Calcium Magnesium Total Bilirubin AST ALT Alkaline Phosphatase Total Protein Albumin Albumin/Globulin Ratio 05/18/18 05/18/18 05/18/18 08:03 08:03 08:03 WBC 7.0 RBC 3.69 Hgb 10.1 Hct 30.4 MCV 82 MCH 27 L MCHC 33 RDW 14.2 Plt Count 309 Lymph % (Auto) 22.4 [place] % (Auto) 6.4 Eos % (Auto) 3.0 Baso % (Auto) 0.2 Lymph # 1.6 [place] # 0.4 Eos # 0.2 Baso # 0.0 Seg Neutrophils % 68.0 Seg Neutrophils # 4.8 Sodium 138 Potassium 3.5 L Chloride 101.9 Carbon Dioxide 24 Anion Gap 16 BUN 5 L Creatinine 0.9 Estimated GFR > 60 BUN/Creatinine Ratio 6 Glucose 151 H POC Glucose Calcium 8.2 L Magnesium 1.70 Total Bilirubin 0.30 AST 8 ALT < 5 L Alkaline Phosphatase 68 Total Protein 5.7 L Albumin 3.1 L Albumin/Globulin Ratio 1.2 05/18/18 05/18/18 08:03 12:46 WBC RBC Hgb Hct MCV MCH MCHC RDW Plt Count Lymph % (Auto) [place] % (Auto) Eos % (Auto) Baso % (Auto) Lymph # [place] # Eos # Baso # Seg Neutrophils % Seg Neutrophils # Sodium Potassium Chloride Carbon Dioxide Anion Gap BUN Creatinine Estimated GFR BUN/Creatinine Ratio Glucose POC Glucose 138 H 153 H Calcium Magnesium Total Bilirubin AST ALT Alkaline Phosphatase Total Protein Albumin Albumin/Globulin Ratio Assessment and Plan 1.epigastric pain 2.intractable N/V 3.H/o gastroparesis 4.DM (uncontrolled) 5.obesity 6.HTN -afebrile -WBC, H/H, and LFTs-WNL -abd CT showed post surgical changes with small fluid collection -surgery following with very low suspicion of abscess or bile leak -patient with multiple hospitalizations since 2018 for similar symptoms -EGD and GES in [place] 08/2017 revealed a non-bleeding ulcer and gastroparesis per pt report (record unavailable) -s/p EGD 05/05/18 that showed mild erosive esophagitis and emetogenic gastritis -s/p lap raudel 05/06/18 -etiology-likely 2/2 gastroparesis -clinically patient is stable. Reports epigastric pain and N/V now improving with only 1 episode of vomiting today. -no plan for repeat scope at this time -continue clear liquids for now -daily PPI -continue reglan -continue librax -avoid narcotics -continue supportive care -optimize glycemic control -consider trial of erythromycin based on progress -consider referral to gastroparesis specialist at a tertiary center as outpatient -will follow
--- NOTE | 2018-05-18 17:29 | Progress Note ---
Assessment and Plan Assessment and plan: Intractible nausea and vomiting from Gastroparesis -cont iv Zofran, Reglan and Pepcid. will add sucralfate -on clear liquid diet to be advanced as tolerated -GI following ARIEL, prerenal -resolved Hypokalemia -Improving on repletion, we'll monitor DM2 -Controlled HTN -Controlled DVT PPx -Lovenox Disposition: For discharge when vomiting resolves History Interval history: The patient reports vomiting today Hospitalist Physical - Constitutional Vitals: Temp Pulse Resp BP Pulse Ox 98.5 F 88 20 131/78 100 05/18/18 12:42 05/18/18 12:42 05/18/18 12:42 05/18/18 12:42 05/18/18 12:42 General appearance: Present: no acute distress, well-nourished - EENT Eyes: Present: PERRL, EOM intact ENT: hearing intact, clear oral mucosa - Neck Neck: Present: supple - Respiratory Respiratory effort: normal Respiratory: bilateral: CTA - Cardiovascular Rhythm: regular Heart Sounds: Present: S1 & S2 - Extremities Extremities: No edema - Abdominal General gastrointestinal: soft, tender (epigastric), non-distended, normal bowel sounds - Neurologic Neurologic: CNII-XII intact Results - Labs CBC & Chem 7: 05/18/18 08:03 05/18/18 08:03 Labs: Laboratory Last Values WBC 7.0 K/mm3 (4.5-11.0) 05/18/18 08:03 RBC 3.69 M/mm3 (3.65-5.03) 05/18/18 08:03 Hgb 10.1 gm/dl (10.1-14.3) 05/18/18 08:03 Hct 30.4 % (30.3-42.9) 05/18/18 08:03 MCV 82 fl (79-97) 05/18/18 08:03 MCH 27 pg (28-32) L 05/18/18 08:03 MCHC 33 % (30-34) 05/18/18 08:03 RDW 14.2 % (13.2-15.2) 05/18/18 08:03 Plt Count 309 K/mm3 (140-440) 05/18/18 08:03 Lymph % (Auto) 22.4 % (13.4-35.0) 05/18/18 08:03 [place] % (Auto) 6.4 % (0.0-7.3) 05/18/18 08:03 Eos % (Auto) 3.0 % (0.0-4.3) 05/18/18 08:03 Baso % (Auto) 0.2 % (0.0-1.8) 05/18/18 08:03 Lymph # 1.6 K/mm3 (1.2-5.4) 05/18/18 08:03 [place] # 0.4 K/mm3 (0.0-0.8) 05/18/18 08:03 Eos # 0.2 K/mm3 (0.0-0.4) 05/18/18 08:03 Baso # 0.0 K/mm3 (0.0-0.1) 05/18/18 08:03 Add Manual Diff Complete 05/15/18 18:35 Total Counted 100 05/15/18 18:35 Seg Neutrophils % 68.0 % (40.0-70.0) 05/18/18 08:03 Seg Neuts % (Manual) 86.0 % (40.0-70.0) H 05/15/18 18:35 Band Neutrophils % 1.0 % 05/15/18 18:35 Lymphocytes % (Manual) 9.0 % (13.4-35.0) L 05/15/18 18:35 Reactive Lymphs % (Man) 0 % 05/15/18 18:35 Monocytes % (Manual) 4.0 % (0.0-7.3) 05/15/18 18:35 Eosinophils % (Manual) 0 % (0.0-4.3) 05/15/18 18:35 Basophils % (Manual) 0 % (0.0-1.8) 05/15/18 18:35 Metamyelocytes % 0 % 05/15/18 18:35 Myelocytes % 0 % 05/15/18 18:35 Promyelocytes % 0 % 05/15/18 18:35 Blast Cells % 0 % 05/15/18 18:35 Nucleated RBC % Not Reportable 05/15/18 18:35 Seg Neutrophils # 4.8 K/mm3 (1.8-7.7) 05/18/18 08:03 Seg Neutrophils # Man 12.2 K/mm3 (1.8-7.7) H 05/15/18 18:35 Band Neutrophils # 0.1 K/mm3 05/15/18 18:35 Lymphocytes # (Manual) 1.3 K/mm3 (1.2-5.4) 05/15/18 18:35 Abs React Lymphs (Man) 0.0 K/mm3 05/15/18 18:35 Monocytes # (Manual) 0.6 K/mm3 (0.0-0.8) 05/15/18 18:35 Eosinophils # (Manual) 0.0 K/mm3 (0.0-0.4) 05/15/18 18:35 Basophils # (Manual) 0.0 K/mm3 (0.0-0.1) 05/15/18 18:35 Metamyelocytes # 0.0 K/mm3 05/15/18 18:35 Myelocytes # 0.0 K/mm3 05/15/18 18:35 Promyelocytes # 0.0 K/mm3 05/15/18 18:35 Blast Cells # 0.0 K/mm3 05/15/18 18:35 WBC Morphology Not Reportable 05/15/18 18:35 Hypersegmented Neuts Not Reportable 05/15/18 18:35 Hyposegmented Neuts Not Reportable 05/15/18 18:35 Hypogranular Neuts Not Reportable 05/15/18 18:35 Smudge Cells Not Reportable 05/15/18 18:35 Toxic Granulation Not Reportable 05/15/18 18:35 Toxic Vacuolation Not Reportable 05/15/18 18:35 Dohle Bodies Not Reportable 05/15/18 18:35 Pelger-Huet Anomaly Not Reportable 05/15/18 18:35 Abida Rods Not Reportable 05/15/18 18:35 Platelet Estimate Consistent w auto 05/15/18 18:35 Clumped Platelets Not Reportable 05/15/18 18:35 Plt Clumps, EDTA Not Reportable 05/15/18 18:35 Large Platelets Not Reportable 05/15/18 18:35 Giant Platelets Not Reportable 05/15/18 18:35 Platelet Satelliting Not Reportable 05/15/18 18:35 Plt Morphology Comment Not Reportable 05/15/18 18:35 RBC Morphology Normal 05/15/18 18:35 Dimorphic RBCs Not Reportable 05/15/18 18:35 Polychromasia Not Reportable 05/15/18 18:35 Hypochromasia Not Reportable 05/15/18 18:35 Poikilocytosis Not Reportable 05/15/18 18:35 Anisocytosis Not Reportable 05/15/18 18:35 Microcytosis Not Reportable 05/15/18 18:35 Macrocytosis Not Reportable 05/15/18 18:35 Spherocytes Not Reportable 05/15/18 18:35 Pappenheimer Bodies Not Reportable 05/15/18 18:35 Sickle Cells Not Reportable 05/15/18 18:35 Target Cells Not Reportable 05/15/18 18:35 Tear Drop Cells Not Reportable 05/15/18 18:35 Ovalocytes Not Reportable 05/15/18 18:35 Helmet Cells Not Reportable 05/15/18 18:35 Sm[place]rey[place] Bodies Not Reportable 05/15/18 18:35 Virgin Rings Not Reportable 05/15/18 18:35 Felipe Cells Not Reportable 05/15/18 18:35 Bite Cells Not Reportable 05/15/18 18:35 Crenated Cell Not Reportable 05/15/18 18:35 Elliptocytes Not Reportable 05/15/18 18:35 Acanthocytes (Spur) Not Reportable 05/15/18 18:35 Rouleaux Not Reportable 05/15/18 18:35 Hemoglobin C Crystals Not Reportable 05/15/18 18:35 Schistocytes Not Reportable 05/15/18 18:35 Malaria parasites Not Reportable 05/15/18 18:35 Jay Bodies Not Reportable 05/15/18 18:35 Hem Pathologist Commnt No 05/15/18 18:35 Sodium 138 mmol/L (137-145) 05/18/18 08:03 Potassium 3.5 mmol/L (3.6-5.0) L 05/18/18 08:03 Chloride 101.9 mmol/L (98-107) 05/18/18 08:03 Carbon Dioxide 24 mmol/L (22-30) 05/18/18 08:03 Anion Gap 16 mmol/L 05/18/18 08:03 BUN 5 mg/dL (7-17) L 05/18/18 08:03 Creatinine 0.9 mg/dL (0.7-1.2) 05/18/18 08:03 Estimated GFR > 60 ml/min 05/18/18 08:03 BUN/Creatinine Ratio 6 % 05/18/18 08:03 Glucose 151 mg/dL (65-100) H 05/18/18 08:03 POC Glucose 153 (70-105) H 05/18/18 12:46 Calcium 8.2 mg/dL (8.4-10.2) L 05/18/18 08:03 Magnesium 1.70 mg/dL (1.7-2.3) 05/18/18 08:03 Total Bilirubin 0.30 mg/dL (0.1-1.2) 05/18/18 08:03 AST 8 units/L (5-40) 05/18/18 08:03 ALT < 5 units/L (7-56) L 05/18/18 08:03 Alkaline Phosphatase 68 units/L (35-129) 05/18/18 08:03 Total Protein 5.7 g/dL (6.3-8.2) L 05/18/18 08:03 Albumin 3.1 g/dL (3.9-5) L 05/18/18 08:03 Albumin/Globulin Ratio 1.2 % 05/18/18 08:03 Lipase 17 units/L (13-60) 05/15/18 19:25 Urine Color Yellow (Yellow) 05/16/18 Unknown Urine Turbidity Clear (Clear) 05/16/18 Unknown Urine pH 7.0 (5.0-7.0) 05/16/18 Unknown Ur Specific [place] 1.012 (1.003-1.030) 05/16/18 Unknown Urine Protein >500 mg/dL (Negative) 05/16/18 Unknown Urine Glucose (UA) 50 mg/dL (Negative) 05/16/18 Unknown Urine Ketones 20 mg/dL (Negative) 05/16/18 Unknown Urine Blood Neg (Negative) 05/16/18 Unknown Urine Nitrite Neg (Negative) 05/16/18 Unknown Urine Bilirubin Neg (Negative) 05/16/18 Unknown Urine Urobilinogen < 2.0 mg/dL (<2.0) 05/16/18 Unknown Ur Leukocyte Esterase Neg (Negative) 05/16/18 Unknown Urine WBC (Auto) 4.0 /HPF (0.0-6.0) 05/16/18 Unknown Urine RBC (Auto) 1.0 /HPF (0.0-6.0) 05/16/18 Unknown U Epithel Cells (Auto) 3.0 /HPF (0-13.0) 05/16/18 Unknown Urine Bacteria (Auto) 1+ /HPF (Negative) 05/16/18 Unknown Nutrition/Malnutrition Assess - Dietary Evaluation Nutrition/Malnutrition Findings: Nutrition Notes Start: 05/16/18 12:55 Freq: Status: Active Protocol: Document 05/18/18 13:58 ER (Rec: 05/18/18 14:10 ER [id number]) Co-Sign 05/18/18 13:58 OL Nutrition Notes Initial or Follow up Reassessment Current Diagnosis Acute Kidney Injury Diabetes Hypertension Other Pertinent Diagnosis S/P cholecystectomy about 12 days ago,Hx gastroparesis, Peptic ulcer disease Current Diet Clear liquid Labs/Tests K: 3.1 Pertinent Medications Reglan Height 5 ft 2 in Weight 77.111 kg [place] Body Weight (kg) 50.00 BMI 31.1 Subjective/Other Information Pt. very fatigued at time of visit. Pt. stated she was only able to eat a bite of jello for breakfast. Pt. asked for cream of chicken, story writer brought pt. food and pt. ate soup while with story writer. Pt. stated she has had N/V. Pt. has been able to tolerate some clear liquids. TPN not warranted at this time. Percent of energy/protein needs met: 0% Burn Absent Trauma Absent #1 Nutrition Diagnosis Malnutrition Diagnosis Progress(for reassessment Continues documentation) Is patient on ventilator? No Is Patient Ambulatory and/or Out of Bed No REE-([place]-St. Jeor-confined to bed) [phone] Calculation Used for Recommendations [place]-St Jeor Additional Notes Protein Needs: 77-96g (1.2-1. 5g/kg, 64kg adjBW) Fluid Needs: 1 ml/kcal Nutrition Intervention Change Diet Order: Advance diet when feasible Add Supplement/Snack (indicate name/kcal Ensure clear BID /protein ) Provides kCal: 480 Provides Protein (gm) 16 Goal #1 Pt. to meet 80% of energy and protein needs through PO and ONS intakes Goal #2 ONS tolerance Follow-Up By: 05/20/18 Additional Comments Follow for PO and ONS intakes
[2018-05-18] MEDS: CARAFATE PO SCH (22:01)
[2018-05-19 05:00] LABS: Basophils % (Auto) 0.5 % (0.0-1.8); Eosinophils # (Auto) 0.2 K/mm3 (0.0-0.4); Eosinophils % (Auto) 4.1 % (0.0-4.3); Hematocrit 27.6 % (30.3-42.9); Hemoglobin 9.2 gm/dl (10.1-14.3); Lymphocytes % (Auto) 41.6 % (13.4-35.0); Mean Corpuscular HGB Conc 33 % (30-34); Mean Corpuscular Volume 83 fl (79-97); Monocytes # (Auto) 0.4 K/mm3 (0.0-0.8); Monocytes % (Auto) 7.6 % (0.0-7.3); Platelet Count 263 K/mm3 (140-440); Red Blood Count 3.31 M/mm3 (3.65-5.03); Red Cell Distribution Width 14.5 % (13.2-15.2)
[2018-05-19 05:25] LABS: Albumin 2.9 g/dL (3.9-5); BUN/Creatinine Ratio 2; Blood Urea Nitrogen 2 mg/dL (7-17); Calcium 8.1 mg/dL (8.4-10.2); Hemolysis Index 5
[2018-05-19 05:32] LABS: Alanine Aminotransferase < 5 units/L (7-56)
[2018-05-19] MEDS: HumaLOG SUB-Q SCH ×5 (06:20→18:48)
[2018-05-19] MEDS: KCL IV SCH (06:21)
[2018-05-19] MEDS: NACL 0.9% IV SCH (06:21)
[2018-05-19] MEDS: CARAFATE PO SCH ×4 (06:32→23:15)
[2018-05-19] MEDS: REGLAN IV PRN (09:11)
[2018-05-19] MEDS: PROTONIX PO SCH (09:15)
[2018-05-19] MEDS: CATAPRES PO SCH (09:16)
[2018-05-19] MEDS: LIBRAX 5-2.5 MG PO SCH ×3 (09:16→18:40)
[2018-05-19] MEDS: TRANSDERM-SCOP TD SCH (09:20)
--- NOTE | 2018-05-19 12:17 | Gastroenterology Progress Note ---
Addendum entered and electronically signed by HARRIS STAPLES MD 05/19/18 12:48: Patient seen and examined on 05/19/2018. Tolerating liquids ok today. Will advance to soft diet tomorrow. Will change reglan to scheduled. Referral to gastroparesis specialist at a tertiary center as outpatient Original Note: Assessment and Plan 1.epigastric pain 2.intractable N/V 3.H/o gastroparesis 4.DM (uncontrolled) 5.obesity 6.HTN -afebrile -WBC, H/H, and LFTs-WNL -abd CT showed post surgical changes with small fluid collection -surgery following with very low suspicion of abscess or bile leak -patient with multiple hospitalizations since 2018 for similar symptoms -EGD and GES in [place] 08/2017 revealed a non-bleeding ulcer and gastroparesis per pt report (record unavailable) -s/p EGD 05/05/18 that showed mild erosive esophagitis and emetogenic gastritis -s/p lap raudel 05/06/18 -etiology-likely 2/2 gastroparesis -clinically patient is stable. Reports feeling better with epigastric pain and N/V continuing to improve with no further episodes of vomiting overnight or this am. Tolerating clears. -no plan for repeat scope at this time -start of full liquids and advance diet as tolerated -continue PPI and librax -change reglan to scheduled dosing -avoid narcotics -continue supportive care -optimize glycemic control -consider trial of erythromycin based on progress -consider referral to gastroparesis specialist at a tertiary center as outpatient -will follow Subjective Date of service: 05/19/18 Principal diagnosis: intractable N/V, abd pain, gastroparesis Interval history: Patient sitting up in bedside chair this am w/o distress. Reports N/V and epigastric pain continuing to improve with no further episodes of vomiting overnight or this am. Tolerating clears. Objective - Constitutional Vitals: Temp Pulse Resp BP Pulse Ox 98.7 F 99 H 20 158/96 99 05/19/18 06:14 05/19/18 09:16 05/19/18 06:14 05/19/18 09:16 05/19/18 06:14 General appearance: no acute distress - EENT Eyes: PERRL, EOM intact ENT: hearing intact - Respiratory Respiratory: bilateral: CTA - Cardiovascular Rhythm: regular Heart Sounds: Present: S1 & S2 - Gastrointestinal General gastrointestinal: Present: soft, non-tender, non-distended, normal bowel sounds - Neurologic Neurological: alert and oriented x3 - Labs CBC & Chem 7: 05/19/18 04:25 05/19/18 04:25 Labs: Laboratory Results - last 24 hr 05/18/18 05/18/18 05/18/18 12:46 17:49 21:47 WBC RBC Hgb Hct MCV MCH MCHC RDW Plt Count Lymph % (Auto) [place] % (Auto) Eos % (Auto) Baso % (Auto) Lymph # [place] # Eos # Baso # Seg Neutrophils % Seg Neutrophils # Sodium Potassium Chloride Carbon Dioxide Anion Gap BUN Creatinine Estimated GFR BUN/Creatinine Ratio Glucose POC Glucose 153 H 142 H 154 H Calcium Total Bilirubin AST ALT Alkaline Phosphatase Total Protein Albumin Albumin/Globulin Ratio 05/19/18 05/19/18 05/19/18 04:25 04:25 06:20 WBC 4.8 RBC 3.31 L Hgb 9.2 L Hct 27.6 L MCV 83 MCH 28 MCHC 33 RDW 14.5 Plt Count 263 Lymph % (Auto) 41.6 H [place] % (Auto) 7.6 H Eos % (Auto) 4.1 Baso % (Auto) 0.5 Lymph # 2.0 [place] # 0.4 Eos # 0.2 Baso # 0.0 Seg Neutrophils % 46.2 Seg Neutrophils # 2.2 Sodium 140 Potassium 4.5 D Chloride 107.6 H Carbon Dioxide 24 Anion Gap 13 BUN 2 L Creatinine 0.9 Estimated GFR > 60 BUN/Creatinine Ratio 2 Glucose 164 H POC Glucose 160 H Calcium 8.1 L Total Bilirubin 0.30 AST 6 ALT < 5 L Alkaline Phosphatase 64 Total Protein 5.3 L Albumin 2.9 L Albumin/Globulin Ratio 1.2 05/19/18 10:33 WBC RBC Hgb Hct MCV MCH MCHC RDW Plt Count Lymph % (Auto) [place] % (Auto) Eos % (Auto) Baso % (Auto) Lymph # [place] # Eos # Baso # Seg Neutrophils % Seg Neutrophils # Sodium Potassium Chloride Carbon Dioxide Anion Gap BUN Creatinine Estimated GFR BUN/Creatinine Ratio Glucose POC Glucose 221 H Calcium Total Bilirubin AST ALT Alkaline Phosphatase Total Protein Albumin Albumin/Globulin Ratio
--- NOTE | 2018-05-19 13:26 | Progress Note ---
Assessment and Plan Assessment and plan: Intractable nausea and vomiting from Gastroparesis -cont iv Zofran, Reglan, protonix and sucralfate. will add erythromycin -will advance diet to full liquid today -GI following and not planning any invasive investigation ARIEL, prerenal azotemia -resolved Hypokalemia -resolved s/p repletion DM2 -Controlled HTN -Controlled on meds DVT PPx -Lovenox Disposition: For discharge when pt is able to tolerate regular diet History Interval history: Patient reports no vomiting today and she requested to advance her diet to full liquid Hospitalist Physical - Constitutional Vitals: Temp Pulse Resp BP Pulse Ox 98.7 F 99 H 20 158/96 99 05/19/18 06:14 05/19/18 09:16 05/19/18 06:14 05/19/18 09:16 05/19/18 06:14 General appearance: Present: no acute distress - EENT Eyes: Present: PERRL, EOM intact ENT: hearing intact, clear oral mucosa - Neck Neck: Present: supple - Respiratory Respiratory effort: normal Respiratory: bilateral: CTA - Cardiovascular Rhythm: regular Heart Sounds: Present: S1 & S2 - Extremities Extremities: No edema - Abdominal General gastrointestinal: soft, non-tender, normal bowel sounds - Neurologic Neurologic: CNII-XII intact Results - Labs CBC & Chem 7: 05/19/18 04:25 05/19/18 04:25 Labs: Laboratory Last Values WBC 4.8 K/mm3 (4.5-11.0) 05/19/18 04:25 RBC 3.31 M/mm3 (3.65-5.03) L 05/19/18 04:25 Hgb 9.2 gm/dl (10.1-14.3) L 05/19/18 04:25 Hct 27.6 % (30.3-42.9) L 05/19/18 04:25 MCV 83 fl (79-97) 05/19/18 04:25 MCH 28 pg (28-32) 05/19/18 04:25 MCHC 33 % (30-34) 05/19/18 04:25 RDW 14.5 % (13.2-15.2) 05/19/18 04:25 Plt Count 263 K/mm3 (140-440) 05/19/18 04:25 Lymph % (Auto) 41.6 % (13.4-35.0) H 05/19/18 04:25 [place] % (Auto) 7.6 % (0.0-7.3) H 05/19/18 04:25 Eos % (Auto) 4.1 % (0.0-4.3) 05/19/18 04:25 Baso % (Auto) 0.5 % (0.0-1.8) 05/19/18 04:25 Lymph # 2.0 K/mm3 (1.2-5.4) 05/19/18 04:25 [place] # 0.4 K/mm3 (0.0-0.8) 05/19/18 04:25 Eos # 0.2 K/mm3 (0.0-0.4) 05/19/18 04:25 Baso # 0.0 K/mm3 (0.0-0.1) 05/19/18 04:25 Add Manual Diff Complete 05/15/18 18:35 Total Counted 100 05/15/18 18:35 Seg Neutrophils % 46.2 % (40.0-70.0) 05/19/18 04:25 Seg Neuts % (Manual) 86.0 % (40.0-70.0) H 05/15/18 18:35 Band Neutrophils % 1.0 % 05/15/18 18:35 Lymphocytes % (Manual) 9.0 % (13.4-35.0) L 05/15/18 18:35 Reactive Lymphs % (Man) 0 % 05/15/18 18:35 Monocytes % (Manual) 4.0 % (0.0-7.3) 05/15/18 18:35 Eosinophils % (Manual) 0 % (0.0-4.3) 05/15/18 18:35 Basophils % (Manual) 0 % (0.0-1.8) 05/15/18 18:35 Metamyelocytes % 0 % 05/15/18 18:35 Myelocytes % 0 % 05/15/18 18:35 Promyelocytes % 0 % 05/15/18 18:35 Blast Cells % 0 % 05/15/18 18:35 Nucleated RBC % Not Reportable 05/15/18 18:35 Seg Neutrophils # 2.2 K/mm3 (1.8-7.7) 05/19/18 04:25 Seg Neutrophils # Man 12.2 K/mm3 (1.8-7.7) H 05/15/18 18:35 Band Neutrophils # 0.1 K/mm3 05/15/18 18:35 Lymphocytes # (Manual) 1.3 K/mm3 (1.2-5.4) 05/15/18 18:35 Abs React Lymphs (Man) 0.0 K/mm3 05/15/18 18:35 Monocytes # (Manual) 0.6 K/mm3 (0.0-0.8) 05/15/18 18:35 Eosinophils # (Manual) 0.0 K/mm3 (0.0-0.4) 05/15/18 18:35 Basophils # (Manual) 0.0 K/mm3 (0.0-0.1) 05/15/18 18:35 Metamyelocytes # 0.0 K/mm3 05/15/18 18:35 Myelocytes # 0.0 K/mm3 05/15/18 18:35 Promyelocytes # 0.0 K/mm3 05/15/18 18:35 Blast Cells # 0.0 K/mm3 05/15/18 18:35 WBC Morphology Not Reportable 05/15/18 18:35 Hypersegmented Neuts Not Reportable 05/15/18 18:35 Hyposegmented Neuts Not Reportable 05/15/18 18:35 Hypogranular Neuts Not Reportable 05/15/18 18:35 Smudge Cells Not Reportable 05/15/18 18:35 Toxic Granulation Not Reportable 05/15/18 18:35 Toxic Vacuolation Not Reportable 05/15/18 18:35 Dohle Bodies Not Reportable 05/15/18 18:35 Pelger-Huet Anomaly Not Reportable 05/15/18 18:35 Abida Rods Not Reportable 05/15/18 18:35 Platelet Estimate Consistent w auto 05/15/18 18:35 Clumped Platelets Not Reportable 05/15/18 18:35 Plt Clumps, EDTA Not Reportable 05/15/18 18:35 Large Platelets Not Reportable 05/15/18 18:35 Giant Platelets Not Reportable 05/15/18 18:35 Platelet Satelliting Not Reportable 05/15/18 18:35 Plt Morphology Comment Not Reportable 05/15/18 18:35 RBC Morphology Normal 05/15/18 18:35 Dimorphic RBCs Not Reportable 05/15/18 18:35 Polychromasia Not Reportable 05/15/18 18:35 Hypochromasia Not Reportable 05/15/18 18:35 Poikilocytosis Not Reportable 05/15/18 18:35 Anisocytosis Not Reportable 05/15/18 18:35 Microcytosis Not Reportable 05/15/18 18:35 Macrocytosis Not Reportable 05/15/18 18:35 Spherocytes Not Reportable 05/15/18 18:35 Pappenheimer Bodies Not Reportable 05/15/18 18:35 Sickle Cells Not Reportable 05/15/18 18:35 Target Cells Not Reportable 05/15/18 18:35 Tear Drop Cells Not Reportable 05/15/18 18:35 Ovalocytes Not Reportable 05/15/18 18:35 Helmet Cells Not Reportable 05/15/18 18:35 [place] Bodies Not Reportable 05/15/18 18:35 [place] Rings Not Reportable 05/15/18 18:35 [place] Cells Not Reportable 05/15/18 18:35 Bite Cells Not Reportable 05/15/18 18:35 Crenated Cell Not Reportable 05/15/18 18:35 Elliptocytes Not Reportable 05/15/18 18:35 Acanthocytes (Spur) Not Reportable 05/15/18 18:35 Rouleaux Not Reportable 05/15/18 18:35 Hemoglobin C Crystals Not Reportable 05/15/18 18:35 Schistocytes Not Reportable 05/15/18 18:35 Malaria parasites Not Reportable 05/15/18 18:35 Jay Bodies Not Reportable 05/15/18 18:35 Hem Pathologist Commnt No 05/15/18 18:35 Sodium 140 mmol/L (137-145) 05/19/18 04:25 Potassium 4.5 mmol/L (3.6-5.0) D 05/19/18 04:25 Chloride 107.6 mmol/L (98-107) H 05/19/18 04:25 Carbon Dioxide 24 mmol/L (22-30) 05/19/18 04:25 Anion Gap 13 mmol/L 05/19/18 04:25 BUN 2 mg/dL (7-17) L 05/19/18 04:25 Creatinine 0.9 mg/dL (0.7-1.2) 05/19/18 04:25 Estimated GFR > 60 ml/min 05/19/18 04:25 BUN/Creatinine Ratio 2 % 05/19/18 04:25 Glucose 164 mg/dL (65-100) H 05/19/18 04:25 POC Glucose 221 (70-105) H 05/19/18 10:33 Calcium 8.1 mg/dL (8.4-10.2) L 05/19/18 04:25 Magnesium 1.70 mg/dL (1.7-2.3) 05/18/18 08:03 Total Bilirubin 0.30 mg/dL (0.1-1.2) 05/19/18 04:25 AST 6 units/L (5-40) 05/19/18 04:25 ALT < 5 units/L (7-56) L 05/19/18 04:25 Alkaline Phosphatase 64 units/L (35-129) 05/19/18 04:25 Total Protein 5.3 g/dL (6.3-8.2) L 05/19/18 04:25 Albumin 2.9 g/dL (3.9-5) L 05/19/18 04:25 Albumin/Globulin Ratio 1.2 % 05/19/18 04:25 Lipase 17 units/L (13-60) 05/15/18 19:25 Urine Color Yellow (Yellow) 05/16/18 Unknown Urine Turbidity Clear (Clear) 05/16/18 Unknown Urine pH 7.0 (5.0-7.0) 05/16/18 Unknown Ur Specific [place] 1.012 (1.003-1.030) 05/16/18 Unknown Urine Protein >500 mg/dL (Negative) 05/16/18 Unknown Urine Glucose (UA) 50 mg/dL (Negative) 05/16/18 Unknown Urine Ketones 20 mg/dL (Negative) 05/16/18 Unknown Urine Blood Neg (Negative) 05/16/18 Unknown Urine Nitrite Neg (Negative) 05/16/18 Unknown Urine Bilirubin Neg (Negative) 05/16/18 Unknown Urine Urobilinogen < 2.0 mg/dL (<2.0) 05/16/18 Unknown Ur Leukocyte Esterase Neg (Negative) 05/16/18 Unknown Urine WBC (Auto) 4.0 /HPF (0.0-6.0) 05/16/18 Unknown Urine RBC (Auto) 1.0 /HPF (0.0-6.0) 05/16/18 Unknown U Epithel Cells (Auto) 3.0 /HPF (0-13.0) 05/16/18 Unknown Urine Bacteria (Auto) 1+ /HPF (Negative) 05/16/18 Unknown Nutrition/Malnutrition Assess - Dietary Evaluation Nutrition/Malnutrition Findings: Nutrition Notes Start: 05/16/18 12:55 Freq: Status: Active Protocol: Document 05/18/18 13:58 ER (Rec: 05/18/18 14:10 ER [id number]) Co-Sign 05/18/18 13:58 OL Nutrition Notes Initial or Follow up Reassessment Current Diagnosis Acute Kidney Injury Diabetes Hypertension Other Pertinent Diagnosis S/P cholecystectomy about 12 days ago,Hx gastroparesis, Peptic ulcer disease Current Diet Clear liquid Labs/Tests K: 3.1 Pertinent Medications Reglan Height 5 ft 2 in Weight 77.111 kg [place] Body Weight (kg) 50.00 BMI 31.1 Subjective/Other Information Pt. very fatigued at time of visit. Pt. stated she was only able to eat a bite of jello for breakfast. Pt. asked for cream of chicken, senior underwriter brought pt. food and pt. ate soup while with senior underwriter. Pt. stated she has had N/V. Pt. has been able to tolerate some clear liquids. TPN not warranted at this time. Percent of energy/protein needs met: 0% Burn Absent Trauma Absent #1 Nutrition Diagnosis Malnutrition Diagnosis Progress(for reassessment Continues documentation) Is patient on ventilator? No Is Patient Ambulatory and/or Out of Bed No [facility] 6541.909 Calculation Used for Recommendations [facility] Additional Notes Protein Needs: 77-96g (1.2-1. 5g/kg, 64kg adjBW) Fluid Needs: 1 ml/kcal Nutrition Intervention Change Diet Order: Advance diet when feasible Add Supplement/Snack (indicate name/kcal Ensure clear BID /protein ) Provides kCal: 480 Provides Protein (gm) 16 Goal #1 Pt. to meet 80% of energy and protein needs through PO and ONS intakes Goal #2 ONS tolerance Follow-Up By: 05/20/18 Additional Comments Follow for PO and ONS intakes
[2018-05-19] MEDS: REGLAN IV SCH ×2 (15:13→18:41)
[2018-05-19] MEDS: NACL 0.9% 1000 ML 1,000 ML IV SCH (16:16)
[2018-05-19] MEDS: ERY-TAB PO SCH (18:41)
[2018-05-20] MEDS: LIBRAX 5-2.5 MG PO SCH ×3 (00:24→12:40)
[2018-05-20] MEDS: CATAPRES PO SCH ×2 (00:25→10:12)
[2018-05-20] MEDS: ERY-TAB PO SCH ×3 (00:25→14:22)
[2018-05-20] MEDS: HumaLOG SUB-Q SCH ×5 (00:27→14:22)
[2018-05-20] MEDS: REGLAN IV SCH ×3 (01:47→12:40)
[2018-05-20 06:31] LABS: BUN/Creatinine Ratio 2; Blood Urea Nitrogen 2 mg/dL (7-17); Calcium 8.6 mg/dL (8.4-10.2); Hemolysis Index 9
[2018-05-20] MEDS: NACL 0.9% 1000 ML 1,000 ML IV SCH (07:40)
[2018-05-20] MEDS: CARAFATE PO SCH ×2 (07:43→12:40)
[2018-05-20] MEDS: PROTONIX PO SCH (10:11)
--- NOTE | 2018-05-20 10:21 | Gastroenterology Progress Note ---
Addendum entered and electronically signed by HARRIS STAPLES MD 05/20/18 17:28: Patient seen and examined on 05/20/2018. Agree with A/P as stated. Clinically improving with erythromycin. Ok for discharge and follow up in clinic in 2-3 weeks. Original Note: Assessment and Plan 1.epigastric pain 2.intractable N/V 3.H/o gastroparesis 4.DM (uncontrolled) 5.obesity 6.HTN -afebrile -WBC, H/H, and LFTs-WNL -abd CT showed post surgical changes with small fluid collection -surgery following with very low suspicion of abscess or bile leak -patient with multiple hospitalizations since 2018 for similar symptoms -EGD and GES in [place] 08/2017 revealed a non-bleeding ulcer and gastroparesis per pt report (record unavailable) -s/p EGD 05/05/18 that showed mild erosive esophagitis and emetogenic gastritis -s/p lap raudel 05/06/18 -etiology-likely 2/2 gastroparesis -clinically patient is stable. Reports feeling better with epigastric pain and N/V improved. Tolerating soft diet. -no plan for repeat scope at this time -continue current medications of PPI, reglan, and erythromycin -avoid narcotics -continue supportive care -optimize glycemic control -patient okay to be d/c per GI standpoint on current medications with also a librax taper and f/u in clinic in 2-3 weeks (consider referral to gastroparesis specialist at a tertiary center as outpatient) -will sign off, please call if needed Subjective Date of service: 05/20/18 Principal diagnosis: intractable N/V, abd pain, gastroparesis Interval history: Patient sitting up in bed w/o distress. Reports feeling better with abd pain and N/V improved. Tolerated soft diet for breakfast. Objective - Constitutional Vitals: Temp Pulse Resp BP Pulse Ox 98.6 F 70 20 120/68 99 05/20/18 06:56 05/20/18 10:12 05/20/18 06:56 05/20/18 10:12 05/20/18 06:56 General appearance: no acute distress - Respiratory Respiratory: bilateral: CTA - Cardiovascular Rhythm: regular Heart Sounds: Present: S1 & S2 - Gastrointestinal General gastrointestinal: Present: soft, non-tender, non-distended, normal bowel sounds - Neurologic Neurological: alert and oriented x3 - Labs CBC & Chem 7: 05/19/18 04:25 05/20/18 05:14 Labs: Laboratory Results - last 24 hr 05/19/18 05/19/18 05/19/18 10:33 15:14 18:00 Sodium Potassium Chloride Carbon Dioxide Anion Gap BUN Creatinine Estimated GFR BUN/Creatinine Ratio Glucose POC Glucose 221 H 107 H 157 H Calcium Magnesium 05/19/18 05/20/18 05/20/18 22:57 02:08 05:14 Sodium 141 Potassium 4.0 Chloride 104.8 Carbon Dioxide 25 Anion Gap 15 BUN 2 L Creatinine 0.9 Estimated GFR > 60 BUN/Creatinine Ratio 2 Glucose 38 L* POC Glucose 155 H 163 H Calcium 8.6 Magnesium 1.40 L 05/20/18 05/20/18 05/20/18 06:58 07:57 09:41 Sodium Potassium Chloride Carbon Dioxide Anion Gap BUN Creatinine Estimated GFR BUN/Creatinine Ratio Glucose POC Glucose 71 131 H 171 H Calcium Magnesium
[2018-05-20 12:19] VITALS: BP 92/62
--- NOTE | 2018-05-21 16:07 | Discharge Summary ---
Providers - Providers Date of Admission: 05/16/18 00:52 Date of discharge: 05/20/18 Attending physician: SHONNA MAC 05/16/18 06:00 Consult to Physician [CONS] Routine Comment: Consulting Provider: ALESHA YI Physician Instructions: Reason For Exam: ARIEL 05/18/18 10:08 Consult to Physician [CONS] Routine Comment: Consulting Provider: ARIE FRANCES Physician Instructions: Reason For Exam: abdominal pain, intractable nausea and emesis 05/18/18 10:09 Consult to Physician [CONS] Routine Comment: Consulting Provider: MERRILL ZAMAN Physician Instructions: Reason For Exam: intractable nausea and emesis, abdominal pain Primary care physician: WOOD DRILL OPERATOR Hospitalization Reason for admission: intractable nausea with vomiting, suspected abdominal abscess Condition: Stable Pertinent studies: CT abdomen/pelvis Hospital course: Final discharge diagnoses: Intractable nausea and vomiting from Gastroparesis ARIEL, prerenal azotemia Hypokalemia and hypomagnesemia DM2 HTN Hospital course: Patient was admitted and placed on bowel rest. She received IV fluid in addition to potassium and magnesium supplements for electrolyte abnormalities. She was evaluated by the skin diving teacher who recommended no further investigative testing. For the suspected abscess on CT scan, surgery was consulted. It was determined to be less likely an abscess by the surgery team and no further treatment was recommended. At some point, the patient was started on sucralfate as well as erythromycin for the gastroparesis as recommended by the gastroenterology. Subsequently, she improved clinically and she was started on oral diet which she gradually tolerated. Thereafter, she was deemed stable for discharge with clinic follow-up. On discharge, plan was made for her to follow up with a gastroparesis specialist. Disposition: TO HOME OR SELFCARE Time spent for discharge: 35 minutes Core Measure Documentation - Palliative Care Palliative Care/ Comfort Measures: Not Applicable - Core Measures Any of the following diagnoses?: none Exam - Constitutional Vitals: Temp Pulse Resp BP Pulse Ox 98.0 F 88 18 92/62 100 05/20/18 12:01 05/20/18 12:01 05/20/18 12:01 05/20/18 12:01 05/20/18 12:01 General appearance: Present: no acute distress, well-nourished - EENT Eyes: Present: PERRL, EOM intact ENT: hearing intact, clear oral mucosa - Neck Neck: Present: supple, normal ROM - Respiratory Respiratory effort: normal Respiratory: bilateral: CTA - Cardiovascular Rhythm: regular Heart Sounds: Present: S1 & S2. Absent: rub, click - Extremities Extremities: No edema - Abdominal General gastrointestinal: Present: soft, non-tender, non-distended, normal bowel sounds - Integumentary Integumentary: Present: clear, warm, dry - Musculoskeletal Musculoskeletal: gait normal, strength equal bilaterally - Psychiatric Psychiatric: appropriate mood/affect, intact judgment & insight - Neurologic Neurologic: CNII-XII intact, moves all extremities Plan Follow up with: PRIMARY CARE,MD [Primary Care Provider] - 3-5 Days Prescriptions: Erythromycin Base [Jimmy-Tab] 250 mg PO Q8HR #90 tablet Sucralfate [Carafate] 1 gm PO ACHS 30 Days #120 oral.[email or web address]
== END 2018-05-20 15:45 | disposition home or self-care (01) | DRG 74 ==
LOC: ED 17:59 → 3A 05-16 00:52
PROVIDERS: ADMIT Internal Medicine; ATTEND Internal Medicine
DX: E11.43 Type 2 diabetes mellitus with diabetic autonomic (poly)neuropathy (principal); N17.9 Acute kidney failure, unspecified; I10 Essential (primary) hypertension; Z79.4 Long term (current) use of insulin; Z79.899 Other long term (current) drug therapy; Z90.49 Acquired absence of other specified parts of digestive tract; Z88.3 Allergy status to other anti-infective agents; K31.84 Gastroparesis; E87.6 Hypokalemia; K21.9 Gastro-esophageal reflux disease without esophagitis; E83.42 Hypomagnesemia; E66.9 Obesity, unspecified; Z68.34 Body mass index [BMI] 34.0-34.9, adult; Z71.3 Dietary counseling and surveillance
CPT/HCPCS: 36415; 74176; 80048; 80053; 81001; 82962; 83690; 83735; 85007; 85025; 87116; G0378; J0360; J1200; J1815; J2270; J2405; J2765; J3475; J3480; J7030